=== PATIENT | male | born 1955 | race Caucasian/White ===

== ENCOUNTER 2018-10-05 22:07 | Emergency (ER) | payer MEDICARE, OTHER ==
[~2018-10-05] VITALS: Ht 162.6 cm; Wt 85.3 kg
--- OUTSIDE RECORDS SUMMARY | 2018-10-05 22:15 | XMS REPORT | Continuity of Care Document ---
Author Organization Unknown Address Unknown Allergies There is no data. Medications There is no data. Problems There is no data. Procedures There is no data. Results Test Result Range CMP - 09/03/18 15:25 GLUCOSE 116 mg/dL 65-139 UREA NITROGEN (BUN) 18 mg/dL 7-25 CREATININE 0.86 mg/dL 0.70-1.25 eGFR NON-AFR. SYRIAN 91 mL/min/1.73m2 > OR=60 eGFR 105 mL/min/1.73m2 > OR=60 BUN/CREATININE RATIO NOT APPLICABLE (calc) 6-22 SODIUM 136 mmol/L 135-146 POTASSIUM 4.0 mmol/L 3.5-5.3 CHLORIDE 98 mmol/L 98-110 CARBON DIOXIDE 29 mmol/L 20-32 CALCIUM 8.8 mg/dL 8.6-10.3 PROTEIN, TOTAL 7.3 g/dL 6.1-8.1 ALBUMIN 3.4 g/dL 3.6-5.1 GLOBULIN 3.9 g/dL (calc) 1.9-3.7 ALBUMIN/GLOBULIN RATIO 0.9 (calc) 1.0-2.5 BILIRUBIN, TOTAL 0.5 mg/dL 0.2-1.2 ALKALINE PHOSPHATASE 137 U/L 40-115 AST 34 U/L 10-35 ALT 39 U/L 9-46 CBC w/MANUAL DIFF - 09/03/18 15:25 WHITE BLOOD CELL COUNT 14.2 Thousand/uL 3.8-10.8 RED BLOOD CELL COUNT 3.41 Million/uL 4.20-5.80 HEMOGLOBIN 10.7 g/dL 13.2-17.1 HEMATOCRIT 32.5 % 38.5-50.0 MCV 95.3 fL 80.0-100.0 MCH 31.4 pg 27.0-33.0 MCHC 32.9 g/dL 32.0-36.0 RDW 14.3 % 11.0-15.0 PLATELET COUNT 271 Thousand/uL 140-400 MPV 10.9 fL 7.5-12.5 ABSOLUTE NEUTROPHILS 20741 cells/uL 7462-0398 ABSOLUTE MONOCYTES 724 cells/uL 200-950 ABSOLUTE EOSINOPHILS 0 cells/uL 15-500 ABSOLUTE BASOPHILS 0 cells/uL 0-200 NEUTROPHILS 82.8 % NRG LYMPHOCYTES 12.1 % NRG MONOCYTES 5.1 % NRG EOSINOPHILS 0 % NRG BASOPHILS 0 % NRG ABSOLUTE LYMPHOCYTES 1718 cells/uL 850-3900 PLATELET ESTIMATION ADEQUATE ADEQUATE COMMENT(S) NRG STOOL (WBC) - 09/05/18 16:13 FECAL LEUKOCYTE STAIN SEE NOTE NRG GIARDIA, STOOL - 09/05/18 16:13 GIARDIA AG, EIA, STOOL SEE NOTE NRG STOOL (C-DIFF) - 09/05/18 16:13 CLOSTRIDIUM DIFFICILE TOXIN/GDH W/REFL TO PCR SEE NOTE NRG Encounters ACCT No. Visit Date/Time Discharge Status Pt. Type Provider Facility Loc./Unit Complaint [id number] 09/05/2018 15:00:00 09/05/2018 23:59:59 [facility] Outpatient [facility] [id number] 09/05/2018 15:00:00 Document Registration [id number] 09/03/2018 14:15:00 Document Registration
--- OUTSIDE RECORDS SUMMARY | 2018-10-05 22:15 | XMS REPORT ---
Author Author JATINDER FRANKLIN [facility] Address [address] [place] [address] Care Team Providers Care Market Development Specialist Name Role Phone SELFJATINDER Unavailable PROBLEMS Unknown Problems ALLERGIES No Information ENCOUNTERS Encounter Location Date [facility] [address] [address] Jul, [facility] [address] [address] Jun, [facility] [address] [address] Jun, [facility] [place] [address] [address] Jun, [facility] [place] [address] [address] Jun, [facility] [place] [address] [address] Jun, [facility] [address] [address] May, [facility] [address] [address] May, [facility] IV[place] [address] [address] May, IMMUNIZATIONS No Known Immunizations SOCIAL HISTORY Never Assessed REASON FOR VISIT Refill request PLAN OF CARE VITAL SIGNS MEDICATIONS Unknown Medications RESULTS No Results PROCEDURES No Known procedures INSTRUCTIONS MEDICATIONS ADMINISTERED No Known Medications
--- OUTSIDE RECORDS SUMMARY | 2018-10-05 22:15 | XMS REPORT ---
Author Author JATINDER FRANKLIN [facility] Address [address] [place] [address] Care Team Providers Care Scrap Hooker Name Role Phone JATINDER FRANKLIN Unavailable PROBLEMS Unknown Problems ALLERGIES No Information ENCOUNTERS Encounter Location Date Diagnosis [facility] [address] [address] Jul, [facility] [address] [address] Jun, [facility] [address] [address] Jun, [facility] [place] [address] [address] Jun, [facility] [address] [address] Jun, [facility] [address] [address] Jun, [facility] [address] [address] May, [facility] [address] [address] May, [facility] [address] [address] May, IMMUNIZATIONS No Known Immunizations SOCIAL HISTORY Never Assessed REASON FOR VISIT MS CONTIN AND OXYCODONE REFILLS PLAN OF CARE VITAL SIGNS MEDICATIONS Medication Instructions Dosage Frequency Start Date End Date Duration Status Oxycodone-Acetaminophen 10-325 MG Orally 3 times a day 1 tablet as needed 8h 07 Jun, 2018 28 days Active Morphine Sulfate ER 30 MG Orally 2 times a day 1 tablet 12h Jun, 28 days Active RESULTS No Results PROCEDURES No Known procedures INSTRUCTIONS MEDICATIONS ADMINISTERED No Known Medications
--- OUTSIDE RECORDS SUMMARY | 2018-10-05 22:15 | XMS REPORT ---
Author Author JATINDER FRANKLIN [facility] Address [address] [place] [id number] Care Team Providers Care Supply Service Worker Name Role Phone JATINDER FRANKLIN Unavailable PROBLEMS Unknown Problems ALLERGIES No Information ENCOUNTERS Encounter Location Date [facility] [address] [address] Jul, [facility] [address] [address] Jun, [facility] [address] [address] Jun, [facility] [place] [address] [address] Jun, [facility] [address] [address] Jun, [facility] [address] [address] Jun, [facility] [address] [address] May, [facility] [address] [address] May, [facility] [address] [address] May, IMMUNIZATIONS No Known Immunizations SOCIAL HISTORY Never Assessed REASON FOR VISIT Sertraline refill PLAN OF CARE VITAL SIGNS MEDICATIONS Medication Instructions Dosage Frequency Start Date End Date Duration Status Sertraline HCl 100 MG Orally Once a day 1 tablet 24h Jun, 90 days Active RESULTS No Results PROCEDURES No Known procedures INSTRUCTIONS MEDICATIONS ADMINISTERED No Known Medications
--- OUTSIDE RECORDS SUMMARY | 2018-10-05 22:15 | XMS REPORT ---
Author Author JATINDER FRANKLIN [facility] Address [address] [place] [id number] Care Team Providers Care Heel Stiffener Name Role Phone JATINDER FRANKLIN Unavailable PROBLEMS Unknown Problems ALLERGIES No Information ENCOUNTERS Encounter Location Date Diagnosis [facility] [address] [address] August, [facility] [address] [address] August, [facility] [address] [address] Jul, [facility] [address] [address] Jul, [facility] [address] [address] Jul, [facility] [address] [address] Jun, [facility] [address] [address] Jun, [facility] [address] [address] Jun, [facility] [address] [address] Jun, [facility] [address] [address] Jun, [facility] [address] [address] May, [facility] [address] [address] May, [facility] [address] [address] May, IMMUNIZATIONS No Known Immunizations SOCIAL HISTORY Never Assessed REASON FOR VISIT med refill PLAN OF CARE VITAL SIGNS MEDICATIONS Unknown Medications RESULTS No Results PROCEDURES No Known procedures INSTRUCTIONS MEDICATIONS ADMINISTERED No Known Medications
[2018-10-05] MEDS ORDERED: DOXY100T2 PO (22:49)
[2018-10-05] MEDS ORDERED: BENZ-13 PO (22:49)
[2018-10-05] MEDS ORDERED: GUAI120013 PO (22:49)
[2018-10-05] MEDS ORDERED: TRIA10.8 NSEACH (22:49)
[2018-10-05 22:56] VITALS: BP 156/97
--- NOTE | 2018-10-05 22:59 | ED Cough/URI ---
General Chief Complaint: Cough/Cold/Flu Symptoms Stated Complaint: TROUBLE BREATHING Nursing Triage Note: pt states cough started today, non productive, was coughing up sputum last week Sepsis Screen: No Definite Risk Source: patient Exam Limitations: no limitations History of Present Illness Date Seen by Provider: Oct 05, 2018 Time Seen by Provider: 22:15 Initial Comments Patient is a 63-year-old male with history of CAD, hypertension who presents with nasal congestion, rhinorrhea, continuous postnasal drip, and difficulty sleeping secondary to coughing and gagging. Patient prior supplemental oxygen at night. Symptoms began this evening. Patient denies fever chills, nausea vomiting sweats. No chest pain chest tightness shortness of breath. No other acute symptoms or complaints. Patient is currently taking seasonal allergy medications. Timing/Duration: this afternoon Severity/Quality: productive cough Prior Episodes/Possible Cause: occasional episodes Modifying Factors: Improves With Lying Down, Improves With Rest Associated Symptoms: denies symptoms Allergies and Home Medications Home Medications Benzonatate 100 Mg Capsule, 100 MG PO TID Prescribed by: KARTIK UREÑA on 10/05/182248 Doxycycline Hyclate 100 Mg Tablet, 100 MG PO BID Prescribed by: KARTIK UREÑA on 10/05/182248 Guaifenesin 1,200 Mg Tab.er.12h, 1,200 MG PO Q12H Prescribed by: KARTIK UREÑA on 10/05/182248 Triamcinolone Acetonide 10.8 Ml [place], 10.8 ML NSEACH DAILY Prescribed by: KARTIK UREÑA on 10/05/182248 Patient Home Medication List Home Medication List Reviewed: Yes Review of Systems Review of Systems Constitutional: see HPI EENTM: see HPI Respiratory: see HPI Cardiovascular: see HPI Gastrointestinal: no symptoms reported Genitourinary: no symptoms reported Musculoskeletal: no symptoms reported Skin: no symptoms reported Psychiatric/Neurological: No Symptoms Reported Hematologic/Lymphatic: No Symptoms Reported Immunological/Allergic: no symptoms reported Past Hgbilhg-Ysrxpe-Velvyt Hx Patient Social History Alcohol Use: Denies Use Recreational Drug Use: No Smoking Status: Never a Smoker 2nd Hand Smoke Exposure: No Recent Foreign Travel: No Contact w/Someone Who Travel: No Recent Infectious Disease Expo: No Recent Hopitalizations: No Physical Abuse: No Sexual Abuse: No Mistreated: No Fear: No Seasonal Allergies Seasonal Allergies: No Past Medical History Surgeries: Yes Respiratory: No Cardiac: Yes Coronary Artery Disease, Hypertension Neurological: No Genitourinary: No Gastrointestinal: No Musculoskeletal: No Endocrine: No HEENT: No Cancer: No Psychosocial: No Integumentary: No Blood Disorders: No Adverse Reaction/Blood Tranf: No Physical Exam Vital Signs - First Documented 10/05/18 22:18 Temp 98.3 Pulse 70 Resp 18 B/P (MAP) 156/97 (116) Pulse Ox 97 O2 Delivery Room Air Capillary Refill : Less Than 3 Seconds Height: 5'4.00" Weight: 188lbs. oz. 85.136832bw; BMI Method:Stated General Appearance: WD/WN, no apparent distress Eyes: Bilateral Eye Normal Inspection, Bilateral Eye PERRL, Bilateral Eye EOMI HEENT: TMs normal, pharynx normal, other Neck: supple, normal inspection Respiratory: chest non-tender, lungs clear, normal breath sounds Cardiovascular: regular rate, rhythm, no edema Extremities: normal range of motion, non-tender Neurologic/Psychiatric: school speech therapist II-XII nml as tested, no motor/sensory deficits, alert, oriented x 3 Skin: normal color Progress/Results/Core Measures Suspected Sepsis Recent Fever Within 48 Hours: No Infection Criteria Present: None New/Unexplained Altered Menta: No Sepsis Screen: No Definite Risk SIRS Temperature:98.3 Pulse: 70 Respiratory Rate: 18 Blood Pressure 156 /97 Mean: 116 Results/Orders Vital Signs/I&O 10/05/18 22:18 Temp 98.3 Pulse 70 Resp 18 B/P (MAP) 156/97 (116) Pulse Ox 97 O2 Delivery Room Air Capillary Refill : Less Than 3 Seconds Blood Pressure Mean: 116 Departure Communication (Admissions) Recommend supportive care with close monitoring and PCP follow-up. Patient structured not to start a course of antibiotics once he develops fever or sputum becomes discolored. Return precautions reviewed Impression Primary Impression: Acute rhinosinusitis Disposition: 01 HOME, SELF-CARE Condition: Improved Departure-Patient Inst. Patient Instructions: Sinusitis in Adults, Acute Bronchitis, Adult (DC) Add. Discharge Instructions: Please fill medications and take as directed. Start antibiotics if sputum becomes discolored or if fever develops. Follow up with your PPCP in 5-7 days if no improvement. Return to the ED if your symptoms worsen. All discharge instructions reviewed with patient and/or family. Voiced understanding. Scripts Triamcinolone Acetonide (Nasacort) 10.8 Ml [place] 10.8 ML NSEACH DAILY, #1 SPRAY Prov: KARTIK UREÑA DO 10/05/18 Benzonatate (Tessalon Perle) 100 Mg Capsule 100 MG PO TID, #60 CAP Prov: KARTIK UREÑA DO 10/05/18 Guaifenesin (Mucinex) 1,200 Mg Tab.er.12h 1200 MG PO Q12H, #30 TAB Prov: KARTIK UREÑA DO 10/05/18 Doxycycline Hyclate (Doxycycline Hyclate) 100 Mg Tablet 100 MG PO BID, #20 TAB 0 Refills Prov: KARTIK UREÑA DO 10/05/18 KARTIK UREÑA DO Oct 05, 2018 22:58
== END 2018-10-05 22:57 | disposition home or self-care (01) ==
LOC: ER FS 22:12
DX: J01.90 Acute sinusitis, unspecified (principal); I25.10 Atherosclerotic heart disease of native coronary artery without angina pectoris; I10 Essential (primary) hypertension
CPT/HCPCS: 99281

== ENCOUNTER 2018-12-06 14:36 | Inpatient (IN) | payer MEDICARE ==
[~2018-12-06] VITALS: Ht 162.6 cm; Wt 87.1 kg
[~2018-12-06 14:36] MED LIST: BENZ-13 PO; DOXY100T2 PO; GUAI120013 PO; TRIA10.8 NSEACH
[2018-12-06] MEDS ORDERED: RT-ALBUTEROL/IPRATROPIUM 3 ML (DUONEB) VIAL INH ONE (15:00)
--- NOTE | 2018-12-06 15:01 | ED Respiratory ---
General Stated Complaint: FEVER; BP 86/48; LOW 02; COUGH Source: patient, spouse Exam Limitations: no limitations History of Present Illness Date Seen by Provider: Dec 06, 2018 Time Seen by Provider: 14:42 Initial Comments The patient presents to ER by private conveyance with his spouse and chief complaint he woke up early this morning with chills, nonproductive cough, subjective fever and feeling very short of breath. He uses 2 L oxygen at baseline to sleep. He measured his blood pressure 86/48 and says he feels like he did 3 years ago when he had to be admitted to the hospital for pneumonia. He has no chest pain but he has a history of coronary disease with CABG and stents over 10 years ago. He denies a history of COPD or asthma. He does not smoke but does use smokeless tobacco. He denies nausea diarrhea constipation, dysuria. He denies orthopnea, weight gain or swelling in his hands or feet. Allergies and Home Medications Allergies Coded Allergies: Penicillins (Verified Allergy, Unknown, 12/06/18) niacin (Verified Allergy, Unknown, 12/06/18) Home Medications Benzonatate 100 Mg Capsule, 100 MG PO TID Prescribed by: KARTIK UREÑA on 10/05/182248 Doxycycline Hyclate 100 Mg Tablet, 100 MG PO BID Prescribed by: KARTIK UREÑA on 10/05/182248 Guaifenesin 1,200 Mg Tab.er.12h, 1,200 MG PO Q12H Prescribed by: KARTIK UREÑA on 10/05/182248 Triamcinolone Acetonide 10.8 Ml [place], 10.8 ML NSEACH DAILY Prescribed by: KARTIK UREÑA on 10/05/182248 Patient Home Medication List Home Medication List Reviewed: Yes Review of Systems Review of Systems Constitutional: chills; No diaphoresis; fever, malaise EENTM: No ear discharge, No ear pain Respiratory: cough; No orthopnea, No phlegm; short of breath; No wheezing Cardiovascular: No chest pain; Hx of Intervention; No palpitations; vascular heart diseas Gastrointestinal: abdominal pain, constipation, diarrhea, nausea Genitourinary: discharge, dysuria Musculoskeletal: back pain, joint pain Skin: pruritus, rash Psychiatric/Neurological: Headache, Numbness Past Oyudusb-Btytcf-Wthxwf Hx Patient Social History Alcohol Use: Denies Use Recreational Drug Use: No Smoking Status: Never a Smoker Type Used: Smokeless Tobacco 2nd Hand Smoke Exposure: No Recent Hopitalizations: No Seasonal Allergies Seasonal Allergies: No Past Medical History Surgeries: Yes Respiratory: No Cardiac: Yes Coronary Artery Disease, Hypertension Neurological: No Genitourinary: No Gastrointestinal: No Musculoskeletal: No Endocrine: No HEENT: No Cancer: No Psychosocial: No Integumentary: No Blood Disorders: No Adverse Reaction/Blood Tranf: No Physical Exam Vital Signs - First Documented 12/06/18 14:42 Temp 99.8 Pulse 77 Resp 18 B/P (MAP) 108/57 (74) Pulse Ox 92 O2 Flow Rate 2.00 Capillary Refill : Height: 5'4.00" Weight: 188lbs. oz. 85.459096vi; BMI Method:Stated General Appearance: WD/WN, mild distress Eyes: Bilateral Eye Normal Inspection, Bilateral Eye PERRL, Bilateral Eye EOMI HEENT: PERRL/EOMI, normal ENT inspection, pharynx normal Neck: full range of motion, supple, normal inspection Respiratory: chest non-tender, lungs clear, no accessory muscle use, respiratory distress (mild SPO2 89% on room air), decreased breath sounds Cardiovascular: normal peripheral pulses, regular rate, rhythm, no edema Gastrointestinal: normal bowel sounds, non tender, soft Extremities: normal range of motion, non-tender, normal inspection, no pedal edema, normal capillary refill Neurologic/Psychiatric: no motor/sensory deficits, alert, normal mood/affect, oriented x 3 Skin: normal color, warm/dry Focused Exam Sepsis Stage: Sepsis Possible Source: Pulmonary Lactate Level 12/06/18 15:00: Lactic Acid Level 2.89*H Time of Focused Exam: 17:03 Respiratory: Chest Non Tender, Lungs Clear, Normal Breath Sounds, No Accessory Muscle Use, Respiratory Distress (mild, O2 sats in the mid to upper 90s on 2 L by nasal cannula) Cardiovascular: Regular Rate, Rhythm, Normal Peripheral Pulses Capillary Refill: Less Than 3 Seconds Peripheral Pulses: 2+ Radial Pulses (R), 2+ Radial Pulses (L) Skin: normal color, warm/dry Lactic Acid Level Laboratory Tests Test 12/06/18 15:00 Lactic Acid Level 2.89 MMOL/L (0.50-2.00) *H Within 3hrs of presentation: Admin fluids, Admin 30ml/kg IBW due to BMI>30, Admin ABX, Blood cultures prior to ABX's, Focus exam, Lactate level (2.89) Progress/Results/Core Measures Suspected Sepsis SIRS Temperature: Pulse: Respiratory Rate: Laboratory Tests 12/06/18 15:00: White Blood Count 23.0H Blood Pressure / Mean: 12/06/18 15:00: Lactic Acid Level 2.89*H Laboratory Tests 12/06/18 15:00: Creatinine 1.39H, INR Comment 1.1, Platelet Count 194, Total Bilirubin 0.3 Results/Orders Lab Results Laboratory Tests Test 12/06/18 15:00 12/06/18 15:05 Range/Units White Blood Count 23.0 H 4.3-11.0 10^3/uL Red Blood Count 3.47 L 4.35-5.85 10^6/uL Hemoglobin 11.1 L 13.3-17.7 G/DL Hematocrit 35 L 40-54 % Mean Corpuscular Volume 100 H 80-99 FL Mean Corpuscular Hemoglobin 32 25-34 PG Mean Corpuscular Hemoglobin Concent 32 32-36 G/DL Red Cell Distribution Width 15.6 H 10.0-14.5 % Platelet Count 194 130-400 10^3/uL Mean Platelet Volume 10.7 H 7.4-10.4 FL Neutrophils (%) (Auto) 90 H 42-75 % Lymphocytes (%) (Auto) 4 L 12-44 % Monocytes (%) (Auto) 5 0-12 % Eosinophils (%) (Auto) 0 0-10 % Basophils (%) (Auto) 0 0-10 % Neutrophils # (Auto) 20.6 H 1.8-7.8 X 10^3 Lymphocytes # (Auto) 1.0 1.0-4.0 X 10^3 Monocytes # (Auto) 1.2 H 0.0-1.0 X 10^3 Eosinophils # (Auto) 0.0 0.0-0.3 10^3/uL Basophils # (Auto) 0.0 0.0-0.1 10^3/uL Neutrophils % (Manual) 81 % Lymphocytes % (Manual) 4 % Monocytes % (Manual) 6 % Eosinophils % (Manual) 0 % Basophils % (Manual) 0 % Metamyelocytes % 1 % Band Neutrophils 8 % Prothrombin Time 14.5 12.2-14.7 SEC INR Comment 1.1 0.8-1.4 Activated Partial Thromboplast Time 32 24-35 SEC Sodium Level 140 135-145 MMOL/L Potassium Level 4.8 3.6-5.0 MMOL/L Chloride Level 101 98-107 MMOL/L Carbon Dioxide Level 23 21-32 MMOL/L Anion Gap 16 H 5-14 MMOL/L Blood Urea Nitrogen 27 H 7-18 MG/DL Creatinine 1.39 H 0.60-1.30 MG/DL Estimat Glomerular Filtration Rate 51 BUN/Creatinine Ratio 19 Glucose Level 142 H 70-105 MG/DL Lactic Acid Level 2.89 *H 0.50-2.00 MMOL/L Calcium Level 9.0 8.5-10.1 MG/DL Corrected Calcium 9.1 8.5-10.1 MG/DL Total Bilirubin 0.3 0.1-1.0 MG/DL Aspartate Amino Transf (AST/SGOT) 19 5-34 U/L Alanine Aminotransferase (ALT/SGPT) 15 0-55 U/L Alkaline Phosphatase 59 40-136 U/L Troponin I < 0.30 <0.30 NG/ML Pro-B-Type Natriuretic Peptide 906.9 H <75.0 PG/ML Total Protein 7.5 6.4-8.2 GM/DL Albumin 3.9 3.2-4.5 GM/DL Blood Gas Puncture Site LT RADIAL Blood Gas Patient Temperature 99.8 Arterial Blood pH 7.42 7.37-7.43 Arterial Blood Partial Pressure CO2 44 35-45 MMHG Arterial Blood Partial Pressure O2 57 L 79-93 MMHG Arterial Blood HCO3 29 H 23-27 MMOL/L Arterial Blood Total CO2 29.9 21.0-31.0 MMOL/L Arterial Blood Oxygen Saturation 90 L 94-100 % Arterial Blood Base Excess 3.5 H -2.5-2.5 MMOL/L Miguel Test OK Blood Gas Ventilator Setting NO Blood Gas Inspired Oxygen 2 L My Orders Orders - KARLO TREVIÑO Cbc With Automated Diff (12/06/18 14:51) Probnp Fs (12/06/18 14:51) Comprehensive Metabolic Panel (12/06/18 14:51) Lactic Acid Analyzer (12/06/18 14:51) Blood Culture (12/06/18 14:51) Arterial Blood Gas (12/06/18 14:51) Troponin I (12/06/18 14:51) Ekg Tracing (12/06/18 14:51) Continuous Ekg Monitoring (12/06/18 14:51) Ed Iv/Invasive Line Start (12/06/18 14:51) O2 (12/06/18 14:51) Protime With Inr (12/06/18 14:51) Partial Thromboplastin Time (12/06/18 14:51) Albuterol/Ipra Inhalation Soln (Duoneb I (12/06/18 15:00) Svn Small Volume Nebulizer (12/06/18 14:51) Chest Pa/Lat (2 View) (12/06/18 15:01) Ceftriaxone For Iv Use (Rocephin For I (12/06/18 15:15) Azithromycin Tablet (Zithromax Tablet) (12/06/18 15:15) Manual Differential (12/06/18 15:00) Medications Given in ED Current Medications Medications Dose Ordered Sig/Krystle Route Start Time Stop Time Status Last Admin Dose Admin Albuterol/ Ipratropium 3 ml ONCE ONCE INH 12/06/18 15:00 12/06/18 15:01 DC 12/06/18 15:01 3 ML Azithromycin 500 mg ONCE ONCE PO 12/06/18 15:15 12/06/18 15:16 DC 12/06/18 15:49 500 MG Ceftriaxone Sodium 1000 mg/ Sterile Water 10 ml @ 200 mls/hr ONCE ONCE IV 12/06/18 15:15 12/06/18 15:17 DC 12/06/18 15:49 200 MLS/HR Vital Signs/I&O 12/06/18 14:42 Temp 99.8 Pulse 77 Resp 18 B/P (MAP) 108/57 (74) Pulse Ox 92 O2 Flow Rate 2.00 Capillary Refill : Progress Note #1: Time: 15:00 Progress Note Hypoxia and mild respiratory distress. We will obtain chest x-ray labs blood cultures and lactate and plan to give him some fluids if his BNP is okay. Rocephin and azithromycin. EKG and troponin for possibility of a atypical chest presentation Progress Note #2: Time: 17:05 Progress Note The patient had some soft blood pressures after he arrived with map in the 65 range however after he received about half of his initial fluid bolus his blood pressure has consistently been elevated in the map of 75 range. Current blood pressure 110/64 and is no longer tachycardic with a heart rate of 75. His work of breathing is decreased to baseline on 2 L of oxygen. He is resting comfortably and ready for transport to [facility]. Plan to redraw his lactate before he leaves. ECG Initial ECG Impression Date: Dec 06, 2018 Initial ECG Impression Time: 14:49 Initial ECG Rate: 77 Initial ECG Rhythm: Normal Sinus Initial ECG Intervals: VT (236) Initial ECG Impression: Normal, Nonspecific Changes Initial ECG Comparisson: Unchanged Comment Left bundle-branch block without clinically significant ST elevation or depression. Negative for Sgarbossa's Criteria. Some respiratory artifact. Diagnostic Imaging Diagonstic Imaging: Xray Plain Films/CT/US/NM/MRI: chest (2v) Comments Right lower lobe and middle lobe infiltrates. NAME: FRANCO CURRAN [facility] REC#: [id number] PT STATUS: REG ER : 1955 PHYSICIAN: KARLO TREVIÑO MD ADMIT DATE: 12/06/18/ER FS Draft Date of Exam:12/06/18 CHEST PA/LAT (2 VIEW) INDICATION: Shortness of breath and hypotension. EXAMINATION: PA and lateral chest. FINDINGS: There are postop changes from a median sternotomy. There is some infiltrate present in the central regions of the right lung. Left lung is clear. There is no effusion or pneumothorax. IMPRESSION: Right perihilar infiltrate suspicious for pneumonia. Dictated on workstation # [id number] Dict: 12/06/18 1528 Trans: 12/06/18 1546 [facility] [id number] Interpreted by: RAMONA CANCINO MD Electronically signed by: Reviewed: Reviewed by Me Departure Communication (Admissions) Time/Spoke to Admitting Phy: 15:35 Discussed case lab imaging with Dr. Botello and she agrees to admit the patient to the floor on Rocephin and azithromycin. Impression Primary Impression: Pneumonia Qualified Codes: J18.1 - Lobar pneumonia, unspecified organism Additional Impressions: Acute respiratory distress Sepsis Qualified Codes: A41.9 - Sepsis, unspecified organism Hypoxemia Disposition: ADMITTED INPATIENT Condition: Stable Admissions Decision to Admit Reason: Admit from ER (General) Decision to Admit/Date: Dec 06, 2018 Time/Decision to Admit Time: 15:30 Departure-Patient Inst. Referrals: SELF,JATINDER RODRIGUEZ (PCP/Family) Primary Care Physician KARLO TREVIÑO Dec 06, 2018 15:00
[2018-12-06 15:14] LABS: ABG BASE EXCESS 3.5 MMOL/L (-2.5-2.5); ABG OXYGEN SATURATION 90 % (94-100); ABG PCO2 44 MMHG (35-45); ABG PH 7.42 (7.37-7.43); ABG PO2 57 MMHG (79-93); ABG TCO2 29.9 MMOL/L (21.0-31.0)
[2018-12-06 15:15] LABS: ALLENS TEST OK; PATIENT TEMP 99.8; VENTILATOR NO
[2018-12-06] MEDS ORDERED: cefTRIAXone FOR IV USE 1,000 MG in WATER (STERILE) FOR INJECTION 10 ML IV ONE (15:15)
[2018-12-06] MEDS ORDERED: AZITHROMYCIN 250 MG TAB (ZITHROMAX) PO ONE (15:15)
[2018-12-06 15:16] LABS: INSPIRED O2 2 L
[2018-12-06 15:22] LABS: HEMATOCRIT 35 % (40-54); HEMOGLOBIN 11.1 G/DL (13.3-17.7); LYMPHOCYTES % (AUTO) 4 % (12-44); MEAN CORPUSCULAR HEMOGLOBIN 32 PG (25-34); MEAN CORPUSCULAR HGB CONC 32 G/DL (32-36); MEAN CORPUSCULAR VOLUME 100 FL (80-99); MEAN PLATELET VOLUME 10.7 FL (7.4-10.4); MONOCYTES % (AUTO) 5 % (0-12); NEUTROPHILS % (AUTO) 90 % (42-75); PLATELET COUNT 194 10^3/uL (130-400); RED CELL DISTRIBUTION WIDTH 15.6 % (10.0-14.5)
[2018-12-06 15:23] LABS: BASOPHILS % (AUTO) 0 % (0-10); EOSINOPHILS % (AUTO) 0 % (0-10); MONOCYTES # (AUTO) 1.2 X 10^3 (0.0-1.0); NEUTROPHILS # (AUTO) 20.6 X 10^3 (1.8-7.8)
[2018-12-06 15:40] LABS: INR 1.1 (0.8-1.4); PROTHROMBIN TIME PATIENT 14.5 SEC (12.2-14.7)
[2018-12-06 15:43] LABS: ALANINE AMINOTRANSFERASE 15 U/L (0-55); ALBUMIN 3.9 GM/DL (3.2-4.5); ALKALINE PHOSPHATASE 59 U/L (40-136); BILIRUBIN,TOTAL 0.3 MG/DL (0.1-1.0); BUN/CREATININE RATIO 19; CARBON DIOXIDE 23 MMOL/L (21-32); CHLORIDE 101 MMOL/L (98-107); CREATININE SERUM 1.39 MG/DL (0.60-1.30); GFR ESTIMATED 51; GLUCOSE 142 MG/DL (70-105); POTASSIUM 4.8 MMOL/L (3.6-5.0); SODIUM 140 MMOL/L (135-145); TOTAL PROTEIN 7.5 GM/DL (6.4-8.2)
[2018-12-06] MEDS ORDERED: NS IV 500 ML 500 ML IV ONE (15:46)
[2018-12-06] MEDS ORDERED: NS IV 1000 ML 1,000 ML IV SCH ×2 (15:46→15:56)
--- NOTE | 2018-12-06 15:46 | Diagnostic Imaging Report ---
INDICATION: Shortness of breath and hypotension. EXAMINATION: PA and lateral chest. FINDINGS: There are postop changes from a median sternotomy. There is some infiltrate present in the central regions of the right lung. Left lung is clear. There is no effusion or pneumothorax. IMPRESSION: Right perihilar infiltrate suspicious for pneumonia. Dictated by: Dictated on workstation # [id number]
[2018-12-06 15:48] LABS: BAND NEUTROPHILS 8 %; BASOPHILS % (MANUAL) 0 %; EOSINOPHILS % (MANUAL) 0 %; LYMPHOCYTES % (MANUAL) 4 %; METAMYELOCYTES % 1 %; MONOCYTES % (MANUAL) 6 %; NEUTROPHILS % (MANUAL) 81 %
[2018-12-06] MEDS ORDERED: NS (IVPB) 250 ML IV ONE (15:56)
[2018-12-06 18:15] VITALS: BP 104/63
[2018-12-06] MEDS ORDERED: 1/2 NS W/KCL 20 MEQ/L 1,000 ML IV ONE (18:19)
[2018-12-06] MEDS: 1/2 NS W/KCL 20 MEQ/L 1,000 ML IV SCH (18:25)
--- NOTE | 2018-12-06 18:30 | NUR ---
FRANCO CURRAN admitted to room 427-1, with an admitting diagnosis of PNA, ACUTE RESPIRATORY DISTRESS W/ HYPOXEMIA, SEPSIS, on 12/06/18 from [facility] via EMS, accompanied by EMS STAFF. FRANCO CURRAN introduced to surroundings, call light, bed controls, phone, TV, temperature control, lights, meal times, smoking policy, visitor policy, side rail policy, bathrooms and showers. Patient Rights given to patient in the handbook. FRANCO CURRAN verbalizes understanding that [facility] is not responsible for the loss or damage to any personal effects or valuables that are kept in the patients possession during their hospitalization.
[2018-12-06] MEDS ORDERED: ACETAMINOPHEN 500 MG TAB (TYLENOL) PO PRN (18:45)
[2018-12-06] MEDS ORDERED: ONDANSETRON 4 MG/2 ML (SDV) Z0FRAN IV PRN (18:45)
[2018-12-06 19:57] VITALS: BP 104/63
[2018-12-06 20:02] VITALS: BP 108/65
[2018-12-06] MEDS ORDERED: RT-ALBUTEROL SULF 2.5 MG/3 ML PRE-MIX VIAL INH PRN (20:15)
[2018-12-06] MEDS: RT-ALBUTEROL/IPRATROPIUM 3 ML (DUONEB) VIAL INH SCH (20:16)
[2018-12-06] MEDS: TEMAZEPAM 15 MG (RESTORIL) CAP PO SCH (20:28)
[2018-12-06] MEDS: morphine ER 30 MG (MS CONTIN) TAB PO SCH (20:29)
[2018-12-06] MEDS: MONTELUKAST 10 MG (SINGULAIR) TAB PO SCH (20:29)
[2018-12-06] MEDS: ROSUVASTATIN 20 MG (CRESTOR) TABLET PO SCH (21:00)
[2018-12-07] VITALS: BP 109/71
[2018-12-07] MEDS: 1/2 NS W/KCL 20 MEQ/L 1,000 ML IV SCH ×4 (01:15→22:02)
[2018-12-07] MEDS: RT-ALBUTEROL/IPRATROPIUM 3 ML (DUONEB) VIAL INH SCH ×4 (03:10→19:40)
[2018-12-07 04:00] VITALS: BP 101/59
[2018-12-07 06:45] LABS: BASOPHILS % (AUTO) 0 % (0-10); EOSINOPHILS # (AUTO) 0.1 10^3/uL (0.0-0.3); EOSINOPHILS % (AUTO) 1 % (0-10); HEMATOCRIT 31 % (40-54); HEMOGLOBIN 9.7 G/DL (13.3-17.7); LYMPHOCYTES # (AUTO) 2.1 X 10^3 (1.0-4.0); LYMPHOCYTES % (AUTO) 14 % (12-44); MEAN CORPUSCULAR HEMOGLOBIN 32 PG (25-34); MEAN CORPUSCULAR HGB CONC 31 G/DL (32-36); MEAN CORPUSCULAR VOLUME 101 FL (80-99); MEAN PLATELET VOLUME 10.3 FL (7.4-10.4); MONOCYTES % (AUTO) 7 % (0-12); NEUTROPHILS # (AUTO) 11.8 X 10^3 (1.8-7.8); NEUTROPHILS % (AUTO) 79 % (42-75); PLATELET COUNT 166 10^3/uL (130-400); WHITE BLOOD COUNT 14.9 10^3/uL (4.3-11.0)
[2018-12-07 07:06] LABS: ALANINE AMINOTRANSFERASE 16 U/L (0-55); ALBUMIN 3.4 GM/DL (3.2-4.5); ALKALINE PHOSPHATASE 47 U/L (40-136); BILIRUBIN,TOTAL 0.4 MG/DL (0.1-1.0); BUN/CREATININE RATIO 22; CALCIUM 8.3 MG/DL (8.5-10.1); CARBON DIOXIDE 18 MMOL/L (21-32); CHLORIDE 108 MMOL/L (98-107); CREATININE SERUM 1.02 MG/DL (0.60-1.30); GFR ESTIMATED > 60; GLUCOSE 88 MG/DL (70-105); POTASSIUM 4.4 MMOL/L (3.6-5.0); SODIUM 141 MMOL/L (135-145); TOTAL PROTEIN 6.6 GM/DL (6.4-8.2)
[2018-12-07 08:00] VITALS: BP 111/68
[2018-12-07] MEDS: PANTOPRAZOLE 20 MG TABLET (PROTONIX) PO SCH (08:17)
[2018-12-07] MEDS: cefTRIAXone 1,000 MG/SWFI 10 ML IV PUSH IV SCH ×2 (08:17)
[2018-12-07] MEDS: ASPIRIN 325 MG (5 GR) TABLET PO SCH (08:17)
[2018-12-07] MEDS: AZITHROMYCIN 250 MG TAB (ZITHROMAX) PO SCH (08:17)
[2018-12-07] MEDS: SERTRALINE 100 MG (ZOLOFT) TAB PO SCH (08:18)
[2018-12-07] MEDS: CLOPIDOGREL 75 MG (PLAVIX) TABLET PO SCH (08:18)
[2018-12-07] MEDS: morphine ER 30 MG (MS CONTIN) TAB PO SCH ×2 (08:18→20:17)
--- NOTE | 2018-12-07 08:39 | NUR ---
PRIOR TO A.M. MEDICATIONS PULSE WAS 78, B/P WAS 111/68 AND TEMP WAS 99.2.
--- NOTE | 2018-12-07 10:21 | Diagnostic Imaging Report ---
INDICATION: History of pneumonia. Acute respiratory distress. Followup. EXAMINATION: 2 view chest 12/07/2018 COMPARISON: 12/06/2018 FINDINGS: Heart is stable. Pulmonary vasculature is minimally congested. There is mild atelectasis versus developing infiltrate at the right lung base. There is atelectatic change at the left lung base, as well. No effusions. No pneumothorax. Sternotomy wires and postoperative change along the cervical spine also noted. IMPRESSION: 1. Diffuse bibasilar atelectasis or infiltrate, similar to previous imaging. 2. Mild pulmonary vascular congestion. Dictated by: Dictated on workstation # [id number]
--- NOTE | 2018-12-07 10:48 | History & Physical-Hospitalist ---
History of Present Illness HPI/Chief Complaint The patient is a 63-year-old white male who reports purulent sputum production for the past several weeks. He denied increased shortness of breath until yesterday reporting some increased dyspnea on exertion and increased cough. He was awoken from sleep with Reiger's feeling feverish Sunday morning. He states he felt like he did when he had pneumonia 3 years ago that required hospitalization. In the emergency room he met sepsis criteria why Was over 20,000 with mildly elevated lactate level in the mid 2 range and chest x-ray revealed right perihilar infiltrate. He was subsequently admitted for treatment of community-acquired pneumonia Date Seen 12/07/18 Time Seen by a Provider: 10:46 Attending Physician Rosa Botello MD PCP SelfJuan MD Referring Physician Date of Admission Dec 06, 2018 at 15:45 Home Medications & Allergies Home Medications Reviewed patient Home Medication Reconciliation performed by pharmacy medication reconciliations broadcast technician and/or nursing. Patients Allergies have been reviewed. Allergies Allergies Coded Allergies Penicillins (Verified Allergy, Unknown, 12/06/18) niacin (Verified Allergy, Unknown, 12/06/18) Past Tnrnjtv-Exeptm-Lqmgan Hx Past Med/Social Hx: Reviewed and Corrections made Patient Social History Alcohol Use: Denies Use Recreational Drug Use: No Smoking Status: Never a Smoker Type Used: Smokeless Tobacco 2nd Hand Smoke Exposure: No Recent Foreign Travel: No Contact w/other who traveled: No Recent Hopitalizations: No Recent Infectious Disease Expo: No Seasonal Allergies Seasonal Allergies: No Past Medical History Surgeries: CABG, Coronary Stent Cardiac: Coronary Artery Disease, Heart Attack, High Cholesterol, Hypertension Gastrointestinal: Gastroesophageal Reflux, Hiatal Hernia Musculoskeletal: Arthritis History of Blood Disorders: No Adverse Reaction to Blood Vidal: No Review of Systems Constitutional: see HPI Physical Exam Physical Exam Vital Signs Vital Signs - First Documented 12/06/18 12/06/18 14:42 19:57 Temp 99.8 Pulse 77 Resp 18 B/P (MAP) 108/57 (74) Pulse Ox 92 O2 Delivery Nasal Cannula O2 Flow Rate 2.00 FiO2 28 Capillary Refill : Less Than 3 SecondsLess Than 3 Seconds Height, Weight, BMI Height: 5'4.00" Weight: 192lbs. 9.0oz. 87.848121ub; 33.1 BMI Method:Stated General Appearance: No Apparent Distress Neck: Normal Inspection Respiratory: Chest Non Tender, No Accessory Muscle Use, No Respiratory Distress, Other (By basilar and right anterior rhonchi and no wheezing appreciated few coarse basilar rales noted as well.) Cardiovascular: Regular Rate, Rhythm, No Edema, No Gallop, No JVD, Other (Soft 1 to 2/6 systolic ejection murmur heard best at the left lower sternal border) Gastrointestinal: Normal Bowel Sounds, No Organomegaly, No Pulsatile Mass, Non Tender, Soft Extremity: Normal Inspection, Normal Range of Motion, Non Tender, No Calf Tenderness, No Pedal Edema Neurologic/Psychiatric: Alert, Oriented x3 Results Results/Procedures Labs Laboratory Tests 12/06/18 15:00 12/07/18 06:21 Patient resulted labs reviewed. Assessment/Plan Admission Diagnosis A/P community-acquired right perihilar pneumonia with secondary sepsis. Patient is responding to antibiotics lactate levels returned to normal and white count was down from well over 20,000 14,000 with decreasing heart rates and reasonable oxygenation continue Rocephin and azithromycin. 2. History of coronary artery disease no evidence for acute coronary syndrome. 3. Hypertension continue current medication. 4. Hyperlipidemia continue statin. Admission Status: Inpatient Order (span 2 midnights) Reason for Inpatient Admission: See admission diagnosis Clinical Quality Measures DVT/VTE Risk/Contraindication: Risk Factor Score Per Nursin RFS Level Per Nursing on Admit: 4+=Very High ANGEL RUBIO MD Dec 07, 2018 10:48
[2018-12-07 12:00] VITALS: BP 117/69
[2018-12-07] MEDS: POLYETHYLENE GLYCOL 17 GM (MIRALAX) PACK PO SCH (13:57)
[2018-12-07 15:30] VITALS: BP 132/75
[2018-12-07 20:00] VITALS: BP 139/79
[2018-12-07] MEDS: ROSUVASTATIN 20 MG (CRESTOR) TABLET PO SCH (20:17)
[2018-12-07] MEDS: TEMAZEPAM 15 MG (RESTORIL) CAP PO SCH (20:17)
[2018-12-07] MEDS: MONTELUKAST 10 MG (SINGULAIR) TAB PO SCH (20:18)
[2018-12-08 01:05] VITALS: BP 137/78
[2018-12-08] MEDS: 1/2 NS W/KCL 20 MEQ/L 1,000 ML IV SCH ×2 (03:44→10:14)
[2018-12-08] MEDS: RT-ALBUTEROL/IPRATROPIUM 3 ML (DUONEB) VIAL INH SCH ×4 (07:44→20:23)
[2018-12-08] MEDS: morphine ER 30 MG (MS CONTIN) TAB PO SCH ×2 (07:50→20:34)
[2018-12-08] MEDS: AZITHROMYCIN 250 MG TAB (ZITHROMAX) PO SCH (07:50)
[2018-12-08] MEDS: oxyCODONE/APAP 10/325MG (PERCOCET 10) TABLET PO PRN ×2 (07:50→15:55)
[2018-12-08] MEDS: cefTRIAXone 1,000 MG/SWFI 10 ML IV PUSH IV SCH ×2 (07:51)
[2018-12-08] MEDS: CLOPIDOGREL 75 MG (PLAVIX) TABLET PO SCH (07:51)
[2018-12-08] MEDS: SERTRALINE 100 MG (ZOLOFT) TAB PO SCH (07:51)
[2018-12-08] MEDS: ASPIRIN 325 MG (5 GR) TABLET PO SCH (07:51)
[2018-12-08] MEDS: PANTOPRAZOLE 20 MG TABLET (PROTONIX) PO SCH (07:51)
[2018-12-08 08:00] VITALS: BP 136/75
[2018-12-08] MEDS: POLYETHYLENE GLYCOL 17 GM (MIRALAX) PACK PO SCH (10:03)
[2018-12-08] MEDS ORDERED: LIDOCAINE 2% VISCOUS 15 ML UDC PO PRN (14:15)
--- NOTE | 2018-12-08 14:31 | Progress Note - Hospitalist ---
Subjective HPI/CC On Admission Date Seen by Provider: Dec 08, 2018 Time Seen by Provider: 14:27 The patient is a 63-year-old white male who reports purulent sputum production for the past several weeks. He denied increased shortness of breath until yesterday reporting some increased dyspnea on exertion and increased cough. He was awoken from sleep with Reiger's feeling feverish Sunday morning. He states he felt like he did when he had pneumonia 3 years ago that required hospitalization. In the emergency room he met sepsis criteria why Was over 20,000 with mildly elevated lactate level in the mid 2 range and chest x-ray revealed right perihilar infiltrate. He was subsequently admitted for treatment of community-acquired pneumonia Subjective/Events-last exam Patient reports feeling better difficulty getting the back room and back and decreased purulent sputum production. Denies night sweats chills or fever with his usual appetite. Focused Exam Lactate Level 12/06/18 17:10: Lactic Acid Level 2.03*H 12/06/18 21:10: Lactic Acid Level 2.76*H 12/06/18 23:27: Lactic Acid Level 1.17 Time of Focused Exam: 17:03 Objective Exam Vital Signs Vital Signs Date Time Temp Pulse Resp B/P (MAP) Pulse Ox O2 Delivery O2 Flow Rate FiO2 12/08/18 10:42 91 Room Air 12/08/18 08:00 99.2 70 20 136/75 (95) 12/08/18 07:44 2.00 12/06/18 19:57 28 Capillary Refill : Less Than 3 SecondsLess Than 3 Seconds General Appearance: No Apparent Distress, WD/WN Respiratory: Chest Non Tender, No Accessory Muscle Use, No Respiratory Distress, Other (Few coarse basilar rales as well as right anterior rales no wheezing noted good air movement.) Cardiovascular: Regular Rate, Rhythm, No Edema, No Gallop, No JVD, No Murmur, Normal Peripheral Pulses Extremity: Non Tender, No Pedal Edema Results/Procedures Lab Patient resulted labs reviewed. Assessment/Plan Assessment and Plan Assess & Plan/Chief Complaint 1. Community-acquired pneumonia with sepsis at her resolved continue Rocephin and azithromycin today consider possible discharge tomorrow. 2. Slightly macrocytic anemia CBC and anemia analyzer in the morning. 3. Mild ALT and AST elevation repeat CMP in the morning. Clinical Quality Measures DVT/VTE Risk/Contraindication: Risk Factor Score Per Nursin RFS Level Per Nursing on Admit: 4+=Very High ANGEL RUBIO MD Dec 08, 2018 14:31
[2018-12-08 16:10] VITALS: BP 145/76
[2018-12-08] MEDS: MONTELUKAST 10 MG (SINGULAIR) TAB PO SCH (20:33)
[2018-12-08] MEDS: ROSUVASTATIN 20 MG (CRESTOR) TABLET PO SCH (20:33)
[2018-12-08] MEDS: TEMAZEPAM 15 MG (RESTORIL) CAP PO SCH (20:33)
[2018-12-09] VITALS: BP 170/82
[2018-12-09 05:51] LABS: ABSOLUTE RETIC # 44 10e9/L (24-90); BASOPHILS % (AUTO) 0 % (0-10); EOSINOPHILS # (AUTO) 0.2 10^3/uL (0.0-0.3); EOSINOPHILS % (AUTO) 3 % (0-10); HEMATOCRIT 34 % (40-54); HEMOGLOBIN 10.4 G/DL (13.3-17.7); LYMPHOCYTES # (AUTO) 1.9 X 10^3 (1.0-4.0); LYMPHOCYTES % (AUTO) 24 % (12-44); MEAN CORPUSCULAR HEMOGLOBIN 31 PG (25-34); MEAN CORPUSCULAR HGB CONC 31 G/DL (32-36); MEAN CORPUSCULAR VOLUME 101 FL (80-99); MONOCYTES # (AUTO) 0.7 X 10^3 (0.0-1.0); MONOCYTES % (AUTO) 8 % (0-12); NEUTROPHILS # (AUTO) 5.3 X 10^3 (1.8-7.8); NEUTROPHILS % (AUTO) 65 % (42-75); PLATELET COUNT 178 10^3/uL (130-400); RED CELL DISTRIBUTION WIDTH 15.6 % (10.0-14.5); WHITE BLOOD COUNT 8.1 10^3/uL (4.3-11.0)
[2018-12-09 06:09] LABS: BAND NEUTROPHILS 1 %; EOSINOPHILS % (MANUAL) 1 %; LYMPHOCYTES % (MANUAL) 29 %; MONOCYTES % (MANUAL) 4 %; NEUTROPHILS % (MANUAL) 65 %; RBC MORPH NORMAL
[2018-12-09] MEDS: RT-ALBUTEROL/IPRATROPIUM 3 ML (DUONEB) VIAL INH SCH (07:37)
[2018-12-09] MEDS ORDERED: RT-ALBUTEROL/IPRATROPIUM 3 ML (DUONEB) VIAL INH PRN (08:00)
[2018-12-09] MEDS ORDERED: MONT10TA24 PO (08:02)
[2018-12-09] MEDS ORDERED: CLOP75TA28 PO (08:02)
[2018-12-09] MEDS ORDERED: SERT100T8 PO (08:02)
[2018-12-09] MEDS ORDERED: ALLO300T2 PO (08:02)
[2018-12-09] MEDS ORDERED: ROSU20TA32 PO (08:02)
[2018-12-09] MEDS ORDERED: OMEP20CA13 PO (08:02)
[2018-12-09] MEDS ORDERED: TEMA30CA PO (08:02)
[2018-12-09] MEDS ORDERED: FLUT9.9S NS (08:02)
[2018-12-09] MEDS ORDERED: IBUP-2055 PO (08:05)
[2018-12-09] MEDS ORDERED: MULT-851 PO (08:05)
[2018-12-09] MEDS ORDERED: ASPI325T32 PO (08:05)
[2018-12-09] MEDS ORDERED: ACET-77 PO (08:05)
[2018-12-09] MEDS ORDERED: MORP-34 PO (08:09)
[2018-12-09] MEDS ORDERED: OXYC-465 PO (08:09)
--- NOTE | 2018-12-09 08:09 | NUR ---
SPOKE WITH PATIENT (AND ), WENT THRU THE EXT MED HISTORY AND ALSO CALLED PT'S PHARMACIES TO COMPLETE THE MED REC. 11-12-2018 MORPHINE #[id number] (IN THE EXTERNAL MED HIS THIS SHOWS LAST FILLED 10-15-2018 BUT WHEN I CALLED [facility] THEY VERIFIED A DATE OF 11-12-2018) 11-12-2018 OXYCODONE/APAP FILLED FOR A 28 D/S. THE SAME NOTE ABOVE APPLIES TO THIS RX. OTC MEDS: FLONASE: UD PRN ACETAMINOPHEN 500M TABS Q 8 H PRN IBUPROFEN 200M TABS Q 8 H PRN MENS 1 A DAY: 1 DAILY ASPIRIN 325M DAILY
[2018-12-09] MEDS: AZITHROMYCIN 250 MG TAB (ZITHROMAX) PO SCH (09:27)
[2018-12-09] MEDS: ASPIRIN 325 MG (5 GR) TABLET PO SCH (09:27)
[2018-12-09] MEDS: CLOPIDOGREL 75 MG (PLAVIX) TABLET PO SCH (09:27)
[2018-12-09] MEDS: PANTOPRAZOLE 20 MG TABLET (PROTONIX) PO SCH (09:27)
[2018-12-09] MEDS: SERTRALINE 100 MG (ZOLOFT) TAB PO SCH (09:27)
[2018-12-09] MEDS: POLYETHYLENE GLYCOL 17 GM (MIRALAX) PACK PO SCH (09:28)
[2018-12-09] MEDS: cefTRIAXone 1,000 MG/SWFI 10 ML IV PUSH IV SCH ×2 (09:29)
[2018-12-09] MEDS: morphine ER 30 MG (MS CONTIN) TAB PO SCH (09:32)
[2018-12-09] MEDS: oxyCODONE/APAP 10/325MG (PERCOCET 10) TABLET PO PRN (09:39)
--- NOTE | 2018-12-09 10:32 | NUR ---
This RT spoke with SILVIO Maldonado regarding home o2 needs. Informed her that pt states he wears home oxygen qhs and pt has not required oxygen during waking hours per documentation since 12/08/18 and that pt was taken off oxygen prior to breathing treatment this a.m.
[2018-12-09] MEDS ORDERED: CEFD300C3 PO (10:33)
--- NOTE | 2018-12-09 11:48 | Discharge Summary ---
[facility] 12/09/18 1148: Diagnosis/Chief Complaint Date of Admission Dec 06, 2018 at 15:45 Date of Discharge Nov Discharge Date: Dec 09, 2018 Admission Diagnosis A/P community-acquired right perihilar pneumonia with secondary sepsis. Patient is responding to antibiotics lactate levels returned to normal and white count was down from well over 20,000 14,000 with decreasing heart rates and reasonable oxygenation continue Rocephin and azithromycin. 2. History of coronary artery disease no evidence for acute coronary syndrome. 3. Hypertension continue current medication. 4. Hyperlipidemia continue statin. Primary Care Self,Juan RODRIGUEZ Discharge Diagnosis Pneumonia (1) Pneumonia Status: Resolved Discharge Summary Discharge Physical Exam Allergies: Coded Allergies: Penicillins (Verified Allergy, Unknown, 12/06/18) niacin (Verified Allergy, Unknown, 12/06/18) Vitals & I&Os Vital Signs Date Time Temp Pulse Resp B/P (MAP) Pulse Ox O2 Delivery O2 Flow Rate FiO2 12/09/18 08:00 93 Room Air 2.00 12/09/18 07:37 65 28 12/09/18 00:00 98.7 20 170/82 (111) General Appearance: No Apparent Distress, WD/WN Respiratory: Chest Non Tender, Crackles, Other (Minor Crackles ) Cardiovascular: Regular Rate, Rhythm, No Edema, No JVD, Normal Peripheral Pulses Extremity: Normal Capillary Refill Skin: Normal Color, Warm/Dry Neurologic/Psychiatric: Alert, Oriented x3 Hospital Course Labs (last 24 hrs) Laboratory Tests 12/09/18 05:10: White Blood Count 8.1, Red Blood Count 3.35L, Hemoglobin 10.4L, Hematocrit 34L, Mean Corpuscular Volume 101H, Mean Corpuscular Hemoglobin 31, Mean Corpuscular Hemoglobin Concent 31L, Red Cell Distribution Width 15.6H, Platelet Count 178, Mean Platelet Volume 11.0H, Neutrophils (%) (Auto) 65, Lymphocytes (%) (Auto) 24, Monocytes (%) (Auto) 8, Eosinophils (%) (Auto) 3, Basophils (%) (Auto) 0, Neutrophils # (Auto) 5.3, Lymphocytes # (Auto) 1.9, Monocytes # (Auto) 0.7, Eosinophils # (Auto) 0.2, Basophils # (Auto) 0.0, Neutrophils % (Manual) 65, Lymphocytes % (Manual) 29, Monocytes % (Manual) 4, Eosinophils % (Manual) 1, Band Neutrophils 1, Blood Morphology Comment NORMAL, Absolute Reticulocyte Count 44, Percent Reticulocyte Count 1.30 Microbiology 12/06/18 Blood Culture - Preliminary, Resulted No growth 12/07/18 Gram Stain - Final, Resulted 12/07/18 Sputum Culture - Preliminary, Resulted Usual upper respiratory sal Patient resulted labs reviewed. Pending Labs Laboratory Tests 12/09/18 05:10: White Blood Count 8.1, Red Blood Count 3.35, Hemoglobin 10.4, Hematocrit 34, Mean Corpuscular Volume 101, Mean Corpuscular Hemoglobin 31, Mean Corpuscular Hemoglobin Concent 31, Red Cell Distribution Width 15.6, Platelet Count 178, Mean Platelet Volume 11.0, Neutrophils (%) (Auto) 65, Lymphocytes (%) (Auto) 24, Monocytes (%) (Auto) 8, Eosinophils (%) (Auto) 3, Basophils (%) (Auto) 0, Neutrophils # (Auto) 5.3, Lymphocytes # (Auto) 1.9, Monocytes # (Auto) 0.7, Eosinophils # (Auto) 0.2, Basophils # (Auto) 0.0, Neutrophils % (Manual) 65, Lymphocytes % (Manual) 29, Monocytes % (Manual) 4, Eosinophils % (Manual) 1, Band Neutrophils 1, Blood Morphology Comment NORMAL, Absolute Reticulocyte Count 44, Percent Reticulocyte Count 1.30 Discharge Home Medications: Active Scripts Active Cefdinir 300 Mg Capsule 300 Mg PO BID Reported Oxycodone-Acetaminophen 10-325 (Oxycodone HCl/Acetaminophen) 1 Each Tablet 1 Tab PO TID PRN Morphine Sulfate ER (Morphine Sulfate) 30 Mg Tablet.er 30 Mg PO BID PRN One Daily For Men Tablet (Multivits-Minerals/FA/Lycopene) 1 Each Tablet 1 Each PO DAILY Aspirin EC (Aspirin) 325 Mg Tablet.dr 325 Mg PO DAILY Ibuprofen 200 Mg Tablet 400 Mg PO Q8H PRN Acetaminophen 500 Mg Tablet 1,000 Mg PO Q8H PRN Flonase Allergy Relief (Fluticasone Propionate) 9.9 Ml [place].susp 1 [place] NS DAILY PRN 1 SPRAY EACH NARE DAILY Allopurinol 300 Mg Tablet 300 Mg PO DAILY Montelukast Sodium 10 Mg Tablet 10 Mg PO HS Clopidogrel (Clopidogrel Bisulfate) 75 Mg Tablet 75 Mg PO DAILY Sertraline HCl 100 Mg Tablet 100 Mg PO HS Omeprazole 20 Mg Capsule.dr 20 Mg PO DAILY TAKES MED BEFORE HE EATS Rosuvastatin Calcium 20 Mg Tablet 20 Mg PO HS Temazepam 30 Mg Capsule 30 Mg PO HS Instructions to patient/family Please see electronic discharge instructions given to patient. Clinical Quality Measures DVT/VTE Risk/Contraindication: Risk Factor Score Per Nursin RFS Level Per Nursing on Admit: 4+=Very High VICKIE MAYO DO 12/09/18 1740: Discharge Summary Discharge Physical Exam Allergies: Coded Allergies: Penicillins (Verified Allergy, Unknown, 12/06/18) niacin (Verified Allergy, Unknown, 12/06/18) General Appearance: No Apparent Distress, WD/WN, Chronically ill Respiratory: Chest Non Tender, Lungs Clear, Normal Breath Sounds, No Accessory Muscle Use, No Respiratory Distress Cardiovascular: Regular Rate, Rhythm, No Edema, No Gallop, No JVD, No Murmur, Normal Peripheral Pulses Neurologic/Psychiatric: Alert, Oriented x3, No Motor/Sensory Deficits, Normal Mood/Affect Hospital Course Was the Problem List Reviewed?: Yes Hospital Course: Pt had a short hospital course for 4 days. He was admitted for pneumonia and acute respiratory distress, maintained on oxygen and nebulizer treatments, placed on empiric antibiotics and admission white count of 23,000 improved. BP remained elevated, right sided infiltrate much improved. Pulse ox w as evaluated and he did not need oxygen on ambulation or exertion he was maintained on oxygen at night and he did receive his DME supplies from [facility] in [facility] Discussion & Recommendations Discharge Planning: <30 minutes discharge planning Supervisory-Addendum Brief Verification & Attestation Participated in pt care: history, MDM, physical Personally performed: exam, history, MDM, supervision of care Care discussed with: Medical Student Procedures: n/a Results interpretation: Verified all documentation Verification and Attestation of Medical Student E/M Service A medical student performed and documented this service in my presence. I reviewed and verified all information documented by the medical student and made modifications to such information, when appropriate. I personally performed the physical exam and medical decision making. Vickie Mayo, Dec 09, 2018,21:11 Problem Qualifiers (1) Pneumonia: Pneumonia type: due to unspecified organism Laterality: right Lung location: lower lobe of lung Qualified Codes: J18.1 - Lobar pneumonia, unspecified organism [facility] Dec 09, 2018 11:48 VICKIE MAYO DO Dec 09, 2018 17:40
[2018-12-09] MEDS ORDERED: RT-ALBUTEROL/IPRATROPIUM 3 ML (DUONEB) VIAL INH SCH (21:00)
[2018-12-10] MEDS ORDERED: HEParin (CATH LAB) 0 ML IV ONE (06:39)
[2018-12-10] MEDS ORDERED: LIDOCAINE 1% INJ 20 ML 20 ML VIAL ONE (06:39)
== END 2018-12-09 12:20 | disposition home or self-care (01) | DRG 871 ==
LOC: EDUNIT# 14:36 → ER FS 14:38 → 4TH 15:45
PROVIDERS: ADMIT Family Medicine; ATTEND Family Medicine
DX: A41.9 Sepsis, unspecified organism (principal); J18.1 Lobar pneumonia, unspecified organism; R06.03 Acute respiratory distress; R09.02 Hypoxemia; I10 Essential (primary) hypertension; I25.10 Atherosclerotic heart disease of native coronary artery without angina pectoris; E78.00 Pure hypercholesterolemia, unspecified; K21.9 Gastro-esophageal reflux disease without esophagitis; K44.9 Diaphragmatic hernia without obstruction or gangrene; M19.91 Primary osteoarthritis, unspecified site; D53.9 Nutritional anemia, unspecified; R51 Headache; M54.9 Dorsalgia, unspecified; F17.220 Nicotine dependence, chewing tobacco, uncomplicated; Z95.1 Presence of aortocoronary bypass graft; Z95.5 Presence of coronary angioplasty implant and graft; Z99.81 Dependence on supplemental oxygen
CPT/HCPCS: 36415; 71046; 80053; 82607; 82746; 82805; 83540; 83550; 83605; 83880; 84484; 85007; 85025; 85027; 85045; 85610; 85730; 87040; 87070; 87205; 93005; 93306; 94640; 94664; 94760; 96361; 96374

== ENCOUNTER → 2019-01-20 | Outpatient (CLI) | payer MEDICARE ==
[~2019-01-20] MED LIST changes: +ACET-77 PO; +ALLO300T2 PO; +ASPI325T32 PO; +CEFD300C3 PO; +CLOP75TA28 PO; +FLUT9.9S NS; +IBUP-2055 PO; +MONT10TA24 PO; +MORP-34 PO; +MULT-851 PO; +OMEP20CA13 PO; +OXYC-465 PO; +ROSU20TA32 PO; +SERT100T8 PO; +TEMA30CA PO
--- NOTE | 2019-01-20 12:07 | Diagnostic Imaging Report ---
PROCEDURE: CT lumbar spine without contrast. TECHNIQUE: Multiple contiguous axial images were obtained through the lumbar spine without the use of intravenous contrast. Sagittal and coronal reformations were then performed. Auto Exposure Controls were utilized during the CT exam to meet ALARA standards for radiation dose reduction. INDICATION: Chronic lumbar radiculopathy. COMPARISON: None. FINDINGS: No acute fracture or dislocation is seen in the lumbar spine. There is left convexity curvature of the lumbar spine centered at the L2 level. Grade 1 anterolisthesis of L4 on L5 is seen. No focal osseous lesions are seen. A prominent Schmorl's node is seen in the inferior endplate of L1. Multilevel degenerative changes are present in the lumbar spine with marginal osteophytes, disc height loss and desiccation, broad-based disc bulges, and facet hypertrophy. There is elnltkrr-yj-kenmwt spinal canal stenosis at the L3-L4 and L4-L5 levels with at least moderate bilateral foraminal stenosis at these levels. The included soft tissues are unremarkable. There is calcified aortic and iliac atherosclerotic plaque. IMPRESSION: 1. No acute fracture or dislocation in the lumbar spine. 2. Dsvxofwa-ne-plmoui degenerative changes at the L3-L4 and L4-L5 levels. Dictated by: Dictated on workstation # [id number]
== END ==
LOC: RAD FS 11:14
PROVIDERS: ATTEND Orthopaedic Surgery
DX: M47.26 Other spondylosis with radiculopathy, lumbar region (principal)
CPT/HCPCS: 72131

== ENCOUNTER → 2019-04-07 | Outpatient (CLI) | payer MEDICARE ==
--- NOTE | 2019-04-07 15:11 | Diagnostic Imaging Report ---
INDICATION: Cough. COMPARISON: 12/07/2018. FINDINGS: Frontal and lateral radiographic views of the chest were obtained and show normal cardiac silhouette and pulmonary vasculature. Sternotomy wires are noted. Lungs continue to show low inspiratory volumes with asymmetric elevation of right hemidiaphragm. Overall, there has been improved aeration when compared to 12/07/2018. Some scattered patchy alveolar opacities persist however, most prominent within the right mid lung field. No large effusion or pneumothorax is seen. Osseous structures show no gross acute abnormalities. IMPRESSION: 1. Overall improved appearance, but with likely recurrent scattered patchy opacities, greatest within the right mid lung and concerning for infiltrate. Follow-up is advised. Dictated by: Dictated on workstation # [id number]
== END ==
LOC: RAD FS 14:50
PROVIDERS: ATTEND Family Medicine
DX: J20.8 Acute bronchitis due to other specified organisms (principal); B96.89 Other specified bacterial agents as the cause of diseases classified elsewhere; Z98.890 Other specified postprocedural states
CPT/HCPCS: 71046

== ENCOUNTER → 2019-09-15 | Outpatient (CLI) | payer MEDICARE ==
[~2019-09-15] MED LIST changes: -ACET-77 PO; +ACET-78 PO; -IBUP-2055 PO; +IBUP-2473 PO; -MONT10TA24 PO; +MONT10TA26 PO; -MORP-34 PO; +MORP-69 PO; -OMEP20CA13 PO; +OMEP20CA18 PO
== END ==
LOC: CARD 13:57
PROVIDERS: ATTEND Internal Medicine Interventional Cardiology
DX: Z01.810 Encounter for preprocedural cardiovascular examination (principal); I25.10 Atherosclerotic heart disease of native coronary artery without angina pectoris; I10 Essential (primary) hypertension; E78.01 Familial hypercholesterolemia; Z72.0 Tobacco use
CPT/HCPCS: 93306

== ENCOUNTER → 2019-09-18 | Outpatient (CLI) | payer MEDICARE ==
[~2019-09-18] VITALS: Ht 162 cm; Wt 91.0 kg
[~2019-09-18] MED LIST changes: +AMLO10TA7 PO; +CARV12.52 PO; +CARV12.53 PO; +CATHETER FLUSH 10 ML SYR IV PRN; -FLUT9.9S NS; +FLUT9.9S NSEACH; +MORP-68 PO; +NEBI5TAB8 PO; +REGADENOSON 0.4 MG/5 ML SYR (LEXISCAN) IV ONE
[2019-09-22 15:05] VITALS: BP 105/80
--- NOTE | 2019-09-22 15:05 | Cardiology Stress Test Report ---
Stress Test Report Type of NM Stress Test: Test Type: LEXISCAN 0.4MG/5ML Date of Procedure/Referring: Date of Procedure: Sep 18, 2019 PCP Franck Gibbons MD Admitting Physician Juan Darden MD Indications: Preoperative cardiovascular risk assessment. Baseline Heart Rate: 66 Baseline Blood Pressure: Blood Pressure Systolic: 105 Blood Pressure Diastolic: 80 Baseline EKG: Baseline EKG: Sinus rhythm Summary & Conclusion: Summary: The patient was brought to the stress lab after informed consent was taken. Stress test was performed according to the Lexiscan protocol. 0.4 mg of IV Lexiscan was given. Low-grade exercise was performed. Baseline EKG showed sinus rhythm at 66 bpm and blood pressure 105/80 mmHg. Maximum heart rate of 76 bpm and blood pressure of 107/71 mmHg. Patient did not have any chest pain, arrhythmias or ST segment changes during the stress test. 10.8 mCi of Myoview were given for rest imaging and 32.8 mCi of Myoview given for stress imaging. Transient ischemic dilatation score 1.04, EF 54 percent. Normal wall motion. Mild severity intermediate size apical reversible defect. Conclusion: Pharmacological stress test was negative for ischemia. Normal LV function with no wall motion abnormalities. Likely evidence of apical ischemia. Franck GIBBONS MD Sep 22, 2019 15:05
== END ==
LOC: CARD 11:06
PROVIDERS: ATTEND Internal Medicine Interventional Cardiology
DX: Z01.810 Encounter for preprocedural cardiovascular examination (principal); I25.10 Atherosclerotic heart disease of native coronary artery without angina pectoris; I10 Essential (primary) hypertension; E78.01 Familial hypercholesterolemia; Z72.0 Tobacco use
CPT/HCPCS: 78452; 93017; A9502

== ENCOUNTER 2019-09-22 09:17 | Inpatient (IN) | payer MEDICARE ==
[2019-09-22] VITALS (12 sets, daily range): BP systolic 110–142; BP diastolic 70–89
[~2019-09-22] VITALS: Ht 162 cm; Wt 90.7 kg
[~2019-09-22 09:17] MED LIST changes: -AMLO10TA7 PO; -CARV12.52 PO; -CARV12.53 PO; -CATHETER FLUSH 10 ML SYR IV PRN; -MORP-68 PO; -NEBI5TAB8 PO; -REGADENOSON 0.4 MG/5 ML SYR (LEXISCAN) IV ONE
[2019-09-22 10:28] LABS: BASOPHILS % (AUTO) 0 % (0-10); EOSINOPHILS % (AUTO) 0 % (0-10); HEMATOCRIT 39 % (40-54); HEMOGLOBIN 12.2 G/DL (13.3-17.7); LYMPHOCYTES # (AUTO) 0.8 X 10^3 (1.0-4.0); LYMPHOCYTES % (AUTO) 5 % (12-44); MEAN CORPUSCULAR HEMOGLOBIN 31 PG (25-34); MEAN CORPUSCULAR HGB CONC 31 G/DL (32-36); MEAN CORPUSCULAR VOLUME 99 FL (80-99); MEAN PLATELET VOLUME 10.5 FL (7.4-10.4); MONOCYTES # (AUTO) 1.3 X 10^3 (0.0-1.0); MONOCYTES % (AUTO) 9 % (0-12); NEUTROPHILS % (AUTO) 85 % (42-75); PLATELET COUNT 155 10^3/uL (130-400); RED CELL DISTRIBUTION WIDTH 15.8 % (10.0-14.5); WHITE BLOOD COUNT 14.2 10^3/uL (4.3-11.0)
[2019-09-22 10:31] LABS: ALBUMIN 4.2 GM/DL (3.2-4.5); CHLORIDE 103 MMOL/L (98-107); SODIUM 140 MMOL/L (135-145)
[2019-09-22 10:33] LABS: CALCIUM 9.1 MG/DL (8.5-10.1)
[2019-09-22 10:34] LABS: GLUCOSE 151 MG/DL (70-105); TOTAL PROTEIN 7.9 GM/DL (6.4-8.2)
[2019-09-22 10:35] LABS: CARBON DIOXIDE 24 MMOL/L (21-32)
[2019-09-22 10:36] LABS: BILIRUBIN,TOTAL 0.5 MG/DL (0.1-1.0)
[2019-09-22 10:37] LABS: ALKALINE PHOSPHATASE 58 U/L (40-136)
[2019-09-22 10:38] LABS: CREATININE SERUM 1.14 MG/DL (0.60-1.30); GFR ESTIMATED > 60
[2019-09-22 10:39] LABS: BUN/CREATININE RATIO 19
[2019-09-22 10:40] LABS: ALANINE AMINOTRANSFERASE 28 U/L (0-55)
[2019-09-22 10:50] LABS: FIBRIN DEGRADATION PRODUCTS 1.74 UG/ML (0.00-0.49); PROTHROMBIN TIME PATIENT 13.8 SEC (12.2-14.7)
[2019-09-22 10:53] LABS: BAND NEUTROPHILS 8 %; BASOPHILS % (MANUAL) 0 %; EOSINOPHILS % (MANUAL) 0 %; LYMPHOCYTES % (MANUAL) 8 %; MONOCYTES % (MANUAL) 9 %; NEUTROPHILS % (MANUAL) 75 %
[2019-09-22 10:54] LABS: ANISOCYTOSIS SLIGHT; ERYTHROCYTE SEDIMENTATION RATE 43 MM/HR (0-30)
[2019-09-22] MEDS ORDERED: LACTATED RINGERS 1,000 ML IV STA (10:56)
[2019-09-22] MEDS ORDERED: LACTATED RINGERS 2,000 ML IV ONE (10:56)
[2019-09-22] MEDS ORDERED: LACTATED RINGERS 1,000 ML IV ONE (10:56)
--- NOTE | 2019-09-22 11:21 | Diagnostic Imaging Report ---
EXAMINATION: Chest 1 view HISTORY: Cough and shortness of breath. COMPARISON: Chest radiograph on 04/07/2019. FINDINGS: Lung volumes are low. Patchy opacities are seen scattered throughout the lungs, greatest in the right hemithorax. This is increased compared to the prior exam. Stable prominent cardiac silhouette with post-CABG changes noted. No large pleural effusion or pneumothorax. Fusion changes are noted in the cervical spine. IMPRESSION: 1. Patchy opacities scattered throughout the lungs, concerning for infectious or inflammatory process. These are new since the prior exam. No pleural effusion. 2. Stable cardiomegaly. No overt pulmonary edema. Dictated by: Dictated on workstation # [id number]
--- NOTE | 2019-09-22 12:04 | ED General ---
General Chief Complaint: Respiratory Problems Stated Complaint: POSS PNEUMONIA Nursing Triage Note: PT TO RM 9 BY WHEELCHAIR WITH COMPLAINT OF COUGH AND SOA THAT STARTED YESTERDAY. PT DENIES TRAVEL OR EXPOSURE TO KNOWN COVID AREAS OR INFECTIOUS PEOPLE. STATES WAS AT HOSPITAL LAST WEEK GETTING A STRESS TEST AND ECHO. Nursing Sepsis Screen: No Definite Risk Source of Information: Patient Exam Limitations: No Limitations History of Present Illness Date Seen by Provider: Sep 22, 2019 Time Seen by Provider: 10:19 Initial Comments Here with report of cough, shortness of air and overall not feeling well. Started yesterday and has worsened through the day. Was seen at the hospital last week for a preop evaluation for neck surgery including stress test and cardiac echo. Does admit that he went to a last Sunday. This is been his only outside exposure except for the hospital per the patient. Also complains of constipation and has that sometimes due to his pain medicine requirements for his neck issues. Denies nausea or vomiting. Does admit to w patrizia. Has to move around with a walker due to decreased mobility due to spinal stenosis. Has chronic right arm pain secondary to the neck stenosis. Reports taking his meds as directed. Arrives with a fever and O2 sat in the 80s. He is not normally on oxygen. Timing/Duration: 1-2 Days, Getting Worse Severity: Moderate Associated Systoms: No Chest Pain; Cough, Fever/Chills; No Nausea/Vomiting; Shortness of Air, Weakness Allergies and Home Medications Allergies Coded Allergies: Penicillins (Verified Allergy, Unknown, 12/06/18) niacin (Verified Allergy, Unknown, 12/06/18) Home Medications Acetaminophen 500 Mg Tablet, 1,000 MG PO Q8H PRN for PAIN-MILD, (Reported) Allopurinol 300 Mg Tablet, 300 MG PO DAILY, (Reported) Aspirin 325 Mg Tablet.dr, 325 MG PO DAILY, (Reported) Cefdinir 300 Mg Capsule, 300 MG PO BID Prescribed by: HALEY MARKHAM on 12/09/18 1033 Clopidogrel Bisulfate 75 Mg Tablet, 75 MG PO DAILY, (Reported) Fluticasone Propionate 9.9 Ml [place].susp, 1 SPRAY NS DAILY PRN for CONGESTION, (Reported) 1 SPRAY EACH NARE DAILY Ibuprofen 200 Mg Tablet, 400 MG PO Q8H PRN for PAIN-MILD, (Reported) Montelukast Sodium 10 Mg Tablet, 10 MG PO HS, (Reported) Morphine Sulfate 30 Mg Tablet.er, 30 MG PO BID PRN for PAIN-SEVERE, (Reported) Multivits-Minerals/FA/Lycopene 1 Each Tablet, 1 EACH PO DAILY, (Reported) Omeprazole 20 Mg Capsule.dr, 20 MG PO DAILY, (Reported) TAKES MED BEFORE HE EATS Oxycodone HCl/Acetaminophen 1 Each Tablet, 1 TAB PO TID PRN for PAIN-MODERATE, (Reported) Rosuvastatin Calcium 20 Mg Tablet, 20 MG PO HS, (Reported) Sertraline HCl 100 Mg Tablet, 100 MG PO HS, (Reported) Temazepam 30 Mg Capsule, 30 MG PO HS, (Reported) Patient Home Medication List Home Medication List Reviewed: Yes Review of Systems Review of Systems Constitutional: see HPI; No chills; fever, weakness EENTM: nose congestion; No throat pain Respiratory: cough, short of breath Cardiovascular: No chest pain; edema (mild) Gastrointestinal: No abdominal pain; constipation; No nausea, No vomiting Genitourinary: No dysuria, No pain Musculoskeletal: back pain, muscle pain, muscle weakness, neck pain Skin: No change in color, No lesions Psychiatric/Neurological: Denies Headache; Weakness Hematologic/Lymphatic: No Symptoms Reported All Other Systems Reviewed Negative Unless Noted: Yes Past Emscdkq-Perjur-Gotpxb Hx Past Med/Social Hx: Reviewed Nursing Past Med/Soc Hx Patient Social History Alcohol Use: Denies Use Recreational Drug Use: No Type Used: Smokeless Tobacco 2nd Hand Smoke Exposure: No Recent Foreign Travel: No Contact w/Someone Who Travel: No Recent Infectious Disease Expo: No Recent Hopitalizations: No Seasonal Allergies Seasonal Allergies: No Past Medical History Surgeries: Yes CABG, Coronary Stent Respiratory: Yes (Nocturnal Hypoxemia) Cardiac: Yes (Chronic ischemic heart disease) Coronary Artery Disease, Heart Attack, High Cholesterol, Hypertension Neurological: No Genitourinary: No Gastrointestinal: Yes Gastroesophageal Reflux, Hiatal Hernia Musculoskeletal: Yes (Carpal tunnel syndrome, Degenerative Arthritis) Arthritis Endocrine: Yes (Hypercalcemia) HEENT: No Cancer: No Psychosocial: No Integumentary: No Blood Disorders: No Adverse Reaction/Blood Tranf: No Family Medical History Reviewed Nursing Family Hx Physical Exam-Suspected Sepsis Physical Exam Vital Signs Vital Signs - First Documented 09/22/19 09:50 Temp 38.0 Pulse 89 Resp 18 B/P (MAP) 124/73 (90) Pulse Ox 94 O2 Delivery Nasal Cannula O2 Flow Rate 2.00 Capillary Refill : Less Than 3 Seconds Blood Pressure Mean: 90 Height, Weight, BMI Height: 5'4.00" Weight: 192lbs. 0.9oz. [id number]; 34.00 BMI Method:Stated General Appearance: WD/WN, Mild Distress, Obese HEENT: PERRL/EOMI, Pharynx Normal Neck: Non Tender, Supple Respiratory: No Accessory Muscle Use, Crackles (along the right lateral aspect), Expiration, Inspiration Cardiovascular: Regular Rate, Rhythm, No Murmur Gastrointestinal: Non Tender, Soft Back: Normal Inspection, No CVA Tenderness, Decreased Range of Motion (chronic upper back and neck decreased mobility), Other (does have chronic neck and upper back pain that is unchanged per the patient) Extremity: No Calf Tenderness, Pedal Edema (trace bilateral lower extremities), Other (decreased range of motion to the right arm secondary to pain which is chronic) Neurologic/Psychiatric: Alert, Oriented x3, No Motor/Sensory Deficits Skin: normal color, warm/dry Focused Exam Lactate Level 09/22/19 10:07: Lactic Acid Level 2.32*H Lactic Acid Level Laboratory Tests Test 09/22/19 10:07 Lactic Acid Level 2.32 MMOL/L (0.50-2.00) *H Progress/Results/Core Measures Suspected Sepsis Recent Fever Within 48 Hours: No Infection Criteria Present: None New/Unexplained Altered Menta: No Sepsis Screen: No Definite Risk SIRS Temperature: Pulse: 89 Respiratory Rate: 18 Laboratory Tests 09/22/19 10:07: White Blood Count 14.2H Blood Pressure 124 /73 Mean: 90 09/22/19 10:07: Lactic Acid Level 2.32*H Laboratory Tests 09/22/19 10:07: Creatinine 1.14, INR Comment 1.0, Platelet Count 155, Total Bilirubin 0.5 Results/Orders Lab Results Laboratory Tests Test 09/22/19 10:07 09/22/19 10:13 09/22/19 11:40 Range/Units White Blood Count 14.2 H 4.3-11.0 10^3/uL Red Blood Count 3.95 L 4.35-5.85 10^6/uL Hemoglobin 12.2 L 13.3-17.7 G/DL Hematocrit 39 L 40-54 % Mean Corpuscular Volume 99 80-99 FL Mean Corpuscular Hemoglobin 31 25-34 PG Mean Corpuscular Hemoglobin Concent 31 L 32-36 G/DL Red Cell Distribution Width 15.8 H 10.0-14.5 % Platelet Count 155 130-400 10^3/uL Mean Platelet Volume 10.5 H 7.4-10.4 FL Neutrophils (%) (Auto) 85 H 42-75 % Lymphocytes (%) (Auto) 5 L 12-44 % Monocytes (%) (Auto) 9 0-12 % Eosinophils (%) (Auto) 0 0-10 % Basophils (%) (Auto) 0 0-10 % Neutrophils # (Auto) 12.0 H 1.8-7.8 X 10^3 Lymphocytes # (Auto) 0.8 L 1.0-4.0 X 10^3 Monocytes # (Auto) 1.3 H 0.0-1.0 X 10^3 Eosinophils # (Auto) 0.0 0.0-0.3 10^3/uL Basophils # (Auto) 0.0 0.0-0.1 10^3/uL Neutrophils % (Manual) 75 % Lymphocytes % (Manual) 8 % Monocytes % (Manual) 9 % Eosinophils % (Manual) 0 % Basophils % (Manual) 0 % Band Neutrophils 8 % Anisocytosis SLIGHT Erythrocyte Sedimentation Rate 43 H 0-30 MM/HR Prothrombin Time 13.8 12.2-14.7 SEC INR Comment 1.0 0.8-1.4 Activated Partial Thromboplast Time 32 24-35 SEC D-Dimer 1.74 H 0.00-0.49 UG/ML Sodium Level 140 135-145 MMOL/L Potassium Level 4.0 3.6-5.0 MMOL/L Chloride Level 103 98-107 MMOL/L Carbon Dioxide Level 24 21-32 MMOL/L Anion Gap 13 5-14 MMOL/L Blood Urea Nitrogen 22 H 7-18 MG/DL Creatinine 1.14 0.60-1.30 MG/DL Estimat Glomerular Filtration Rate > 60 BUN/Creatinine Ratio 19 Glucose Level 151 H 70-105 MG/DL Lactic Acid Level 2.32 *H 0.50-2.00 MMOL/L Calcium Level 9.1 8.5-10.1 MG/DL Corrected Calcium 8.9 8.5-10.1 MG/DL Total Bilirubin 0.5 0.1-1.0 MG/DL Aspartate Amino Transf (AST/SGOT) 22 5-34 U/L Alanine Aminotransferase (ALT/SGPT) 28 0-55 U/L Alkaline Phosphatase 58 40-136 U/L Lactate Dehydrogenase 215 125-220 U/L C-Reactive Protein High Sensitivity 6.55 H 0.00-0.50 MG/DL B-Type Natriuretic Peptide 101.3 H <100.0 PG/ML Total Protein 7.9 6.4-8.2 GM/DL Albumin 4.2 3.2-4.5 GM/DL Procalcitonin 2.02 H <0.10 NG/ML My Orders Orders - RAMONA GONZALES MD Cbc With Automated Diff (09/22/19 10:18) Comprehensive Metabolic Panel (09/22/19 10:18) Blood Culture (09/22/19 10:18) Sputum Culture (09/22/19 10:18) Urinalysis (09/22/19 10:18) Urine Culture (09/22/19 10:18) Protime With Inr (09/22/19 10:18) Partial Thromboplastin Time (09/22/19 10:18) Chest 1 View, Ap/Pa Only (09/22/19 10:18) Ed Iv/Invasive Line Start (09/22/19 10:18) Ed Iv/Invasive Line Start (09/22/19 10:18) Vital Signs Adult Sepsis Patie Q15M (09/22/19 10:18) O2 (09/22/19 10:18) Remove Rings In Anticipation O (09/22/19 10:18) Lactic Acid Analyzer (09/22/19 10:18) Fibrin Degradation Products (09/22/19 10:18) Procalcitonin (Pct) (09/22/19 10:18) Hs C Reactive Protein (09/22/19 10:18) Erythrocyte Sedimentation Rate (09/22/19 10:18) LDH (09/22/19 10:18) Coronavirus Sars-Cov-2 So 2018 (09/22/19 10:18) BNP (09/22/19 10:18) Manual Differential (09/22/19 10:07) Ed Iv/Invasive Line Start (09/22/19 10:56) Lactated Ringers (Lr 1000 Ml Iv Solution (09/22/19 10:56) Lactated Ringers (Lr 1000 Ml Iv Solution (09/22/19 10:56) Lactated Ringers (Lr 1000 Ml Iv Solution (09/22/19 10:56) Covid-19 Igg Only So (09/22/19 11:46) Cefepime Injection (Maxipime Injection) (09/22/19 12:00) Medications Given in ED Current Medications Medications Dose Ordered Sig/Krystle Route Start Time Stop Time Status Last Admin Dose Admin Lactated Ringer's 1,000 ml @ 0 mls/hr Q0M ONCE IV 09/22/19 10:56 09/22/19 10:58 DC 09/22/19 11:06 0 MLS/HR Vital Signs/I&O 09/22/19 09:50 Temp 38.0 Pulse 89 Resp 18 B/P (MAP) 124/73 (90) Pulse Ox 94 O2 Delivery Nasal Cannula O2 Flow Rate 2.00 Capillary Refill : Less Than 3 Seconds Blood Pressure Mean: 90 Progress Note : Progress Note Seen and evaluated. Sepsis protocol initiated. We will also initiate COVID-19 screening due to presenting symptoms and travel. Patient is hypoxic. Labs, UA, chest x-ray and O2 initiated. Normal saline 2 L IV ordered. Chest x-ray is concerning for COVID signs but also has mixed picture and may be bacterial pneumonia. 1135: I discussed the case with Dr. Quiñones. Because of the COVID evaluation, patient will go under the care of Dr. Llamas as he is going to the ICU. 1050: I discussed the case with Dr. Llamas and he accepts patient for admission to the ICU and will transfer care once able to clear COVID-19 concerns. We have added COVID-19 antibody test as well as the swab test to fully evaluate patient. Cefepime 1 g IV initiated. Patient's blood pressure is greater than 100 systolic and he has not shown signs of septic shock. High-volume fluid resuscitation at this point is not required although he did get approximately 20/kg of fluids. There is some concerns about underlying heart failure although echo done last week showed normal EF. Patient will be admitted to the ICU and further monitoring initiated as indicated. Dr. Llamas agrees to admission and plan. I did discuss findings and concerns with the patient and his family via phone and they agree with plan as well. Diagnostic Imaging Diagonstic Imaging: Xray Plain Films/CT/US/NM/MRI: chest Comments [facility] [place], [place] NAME: FRANCO CURRAN [facility] REC#: [id number] PT STATUS: REG ER : 1955 PHYSICIAN: RAMONA GONZALES MD ADMIT DATE: 09/22/19/ER Signed Date of Exam:09/22/19 CHEST 1 VIEW, AP/PA ONLY EXAMINATION: Chest 1 view HISTORY: Cough and shortness of breath. COMPARISON: Chest radiograph on 04/07/2019. FINDINGS: Lung volumes are low. Patchy opacities are seen scattered throughout the lungs, greatest in the right hemithorax. This is increased compared to the prior exam. Stable prominent cardiac silhouette with post-CABG changes noted. No large pleural effusion or pneumothorax. Fusion changes are noted in the cervical spine. IMPRESSION: 1. Patchy opacities scattered throughout the lungs, concerning for infectious or inflammatory process. These are new since the prior exam. No pleural effusion. 2. Stable cardiomegaly. No overt pulmonary edema. Dictated by: Dictated on workstation # [id number] Dict: 09/22/19 1116 Trans: 09/22/19 1136 [id number] Interpreted by: HAKAN MCGEE DO Electronically signed by: HAKAN MCGEE DO 09/22/19 1136 Reviewed: Reviewed by Me Departure Communication (Admissions) Time/Spoke to Admitting Phy: 11:50 Impression Primary Impression: Bilateral pneumonia Qualified Codes: J18.9 - Pneumonia, unspecified organism Additional Impression: COVID-19 evaluation Disposition: ADMITTED INPATIENT Condition: Stable Admissions Decision to Admit Reason: Admit from ER (General) Decision to Admit/Date: Sep 22, 2019 Time/Decision to Admit Time: 11:30 Departure-Patient Inst. Referrals: JATINDER FRANKLIN MD (PCP/Family) Primary Care Physician RAMONA GONZALES MD Sep 22, 2019 12:04
--- OUTSIDE RECORDS SUMMARY | 2019-09-22 12:04 | XMS REPORT | Continuity of Care Document ---
Author Organization Unknown Address Unknown Phone Unavailable Allergies Active Description Code Type Severity Reaction Onset Reported/Identified Relationship to Patient Clinical Status Yes niacin [id number] Drug Allergy Unknown N/A 12/06/2018 Yes No Known Drug Allergies [id number] Drug Allergy Unknown N/A 12/06/2018 Yes Penicillins [id number] Drug Aller gy Unknown N/A 12/06/2018 Medications There is no data. Problems Date Dx Coded Attending Type Code Diagnosis Diagnosed By 10/05/2018 KARTIK UREÑA DO, Ot I10 ESSENTIAL (PRIMARY) HYPERTENSION 10/05/2018 KARTIK UREÑA DO, Ot I25.10 ATHSCL HEART DISEASE OF [place] CORONARY 10/05/2018 KARTIK UREÑA DO, Ot J01.90 ACUTE SINUSITIS, UNSPECIFIED 10/05/2018 KARTIK UREÑA DO, Ot R09.81 NASAL CONGESTION 10/07/2018 KARTIK UREÑA DO, Ot I10 ESSENTIAL (PRIMARY) HYPERTENSION 10/07/2018 KARTIK UREÑA DO, Ot I25.10 ATHSCL HEART DISEASE OF [place] CORONARY 10/07/2018 KARTIK UREÑA DO, Ot J01.90 ACUTE SINUSITIS, UNSPECIFIED 10/07/2018 KARTIK UREÑA DO, Ot R09.81 NASAL CONGESTION 12/09/2018 YUMIKO KIM MD Ot A41 .9 SEPSIS, UNSPECIFIED ORGANISM 12/09/2018 YUMIKO KIM MD Ot D53 .9 NUTRITIONAL ANEMIA, UNSPECIFIED 12/09/2018 YUMIKO KIM MD Ot E78.00 PURE HYPERCHOLESTEROLEMIA, UNSPECIFIED 12/09/2018 YUMIKO KIM MD Ot F17.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, CHEWING TOBACCO, UN 12/09/2018 YUMIKO KIM MD Ot I10 ESSENTIAL (PRIMARY) HYPERTENSION 12/09/2018 YUMIKO KIM MD Ot I25.10 ATHSCL HEART DISEASE OF [place] CORONARY 12/09/2018 YUMIKO KIM MD Ot J18 .1 LOBAR PNEUMONIA, UNSPECIFIED ORGANISM 12/09/2018 YUMIKO KIM MD Ot K21 .9 GASTRO-ESOPHAGEAL REFLUX DISEASE WITHOUT 12/09/2018 YUMIKO KIM MD Ot K44 .9 DIAPHRAGMATIC HERNIA WITHOUT OBSTRUCTION 12/09/2018 YUMIKO KIM MD Ot M19.91 PRIMARY OSTEOARTHRITIS, UNSPECIFIED SITE 12/09/2018 YUMIKO KIM MD Ot M54 .9 DORSALGIA, UNSPECIFIED 12/09/2018 YUMIKO KIM MD Ot R06.03 ACUTE RESPIRATORY DISTRESS 12/09/2018 YUMIKO KIM MD Ot R09.02 HYPOXEMIA 12/09/2018 YUMIKO KIM MD Ot R51 HEADACHE 12/09/2018 YUMIKO KIM MD Ot Z95 .1 PRESENCE OF AORTOCORONARY BYPASS GRAFT 12/09/2018 YUMIKO KIM MD Ot Z95 .5 PRESENCE OF CORONARY ANGIOPLASTY IMPLANT 12/09/2018 YUMIKO KIM MD Ot Z99.81 DEPENDENCE ON SUPPLEMENTAL OXYGEN 02/06/2019 ROXIE CAMPBELL MD, Ot M47.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, [place] 02/11/2019 ROXIE CAMPBELL MD Ot M47.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, [place] 04/07/2019 ROXIE CAMPBELL MD Ot M47.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, [place] 04/09/2019 JATINDER FRANKLIN MD Ot B96.89 OTH BACTERIAL AGENTS THE CAUSE OF DIS 04/09/2019 JATINDER FRANKLIN MD Ot J20.8 ACUTE BRONCHITIS DUE TO OTHER SPECIFIED 04/09/2019 JATINDER FRANKLIN MD Ot Z98.89 0 OTHER SPECIFIED POSTPROCEDURAL STATES 04/13/2019 JATINDER FRANKLIN MD Ot B96.89 OTH BACTERIAL AGENTS THE CAUSE OF DIS 04/13/2019 JATINDER FRANKLIN MD Ot J20.8 ACUTE BRONCHITIS DUE TO OTHER SPECIFIED 04/13/2019 JATINDER FRANKLIN MD Ot Z98.89 0 OTHER SPECIFIED POSTPROCEDURAL STATES 09/11/2019 ROXIE CAMPBELL MD Ot M47.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, [place] 09/11/2019 JATINDER FRANKLIN MD Ot B96.89 OTH BACTERIAL AGENTS THE CAUSE OF DIS 09/11/2019 JATINDER FRANKLIN MD Ot J20.8 ACUTE BRONCHITIS DUE TO OTHER SPECIFIED 09/11/2019 JATINDER FRANKLIN MD Ot Z98.89 0 OTHER SPECIFIED POSTPROCEDURAL STATES 09/17/2019 Franck HERNANDEZ MD Ot E78.01 FAMILIAL HYPERCHOLESTEROLEMIA 09/17/2019 Franck HERNANDEZ MD, Ot I10 ESSENTIAL (PRIMARY) HYPERTENSION 09/17/2019 Franck HERNANDEZ MD, Ot I25.10 ATHSCL HEART DISEASE OF [place] CORONARY 09/17/2019 Franck HERNANDEZ MD, Ot Z01.810 ENCOUNTER FOR PREPROCEDURAL CARDIOVASCUL 09/17/2019 Franck HERNANDEZ MD, Ot Z72 .0 TOBACCO USE Procedures There is no data. Results Test Result Range CMP - 09/03/18 15:25 GLUCOSE 116 mg/dL 65-139 UREA NITROGEN (BUN) 18 mg/dL 7-25 CREATININE 0.86 mg/dL 0.70-1.25 eGFR NON-AFR. [place] 91 mL/min/1.73m2 > OR = 60 eGFR 105 mL/min/1.73m2 > OR = 60 BUN/CREATININE RATIO NOT APPLICABLE (calc) 6-22 SODIUM 136 mmol/L 135-146 POTASSIUM 4.0 mmol/L 3.5-5.3 CHLORIDE 98 mmol/L 98-110 CARBON DIOXIDE 29 mmol/L 20-32 CALCIUM 8.8 mg/dL 8.6-10.3 PROTEIN, TOTAL 7.3 g/dL 6.1-8.1 ALBUMIN 3.4 g/dL 3.6-5.1 GLOBULIN 3.9 g/dL (calc) 1.9-3.7 ALBUMIN/GLOBULIN RATIO 0.9 (calc) 1.0-2. 5 BILIRUBIN, TOTAL 0.5 mg/dL 0.2-1.2 ALKALINE PHOSPHATASE 137 U/L 40-115 AST 34 U/L 10-35 ALT 39 U/L 9-46 CBC w/MANUAL DIFF - 09/03/18 15:25 WHITE BLOOD CELL COUNT 14.2 Thousand/uL 3.8-10.8 RED BLOOD CELL COUNT 3.41 Million/uL 4.2 0-5.80 HEMOGLOBIN 10.7 g/dL 13.2-17.1 HEMATOCRIT 32.5 % 38.5-50.0 MCV 95.3 fL 80.0-100.0 MCH 31.4 pg 27.0-33.0 MCHC 32.9 g/dL 32.0-36.0 RDW 14.3 % 11.0-15.0 PLATELET COUNT 271 Thousand/uL 140-400 MPV 10.9 fL 7.5-12.5 ABSOLUTE NEUTROPHILS 94470 cells/uL 1500 -7800 ABSOLUTE MONOCYTES 724 cells/uL 200-950 ABSOLUTE EOSINOPHILS 0 cells/uL 15-500 ABSOLUTE BASOPHILS 0 cells/uL 0-200 NEUTROPHILS 82.8 % NRG LYMPHOCYTES 12.1 % NRG MONOCYTES 5.1 % NRG EOSINOPHILS 0 % NRG BASOPHILS 0 % NRG ABSOLUTE LYMPHOCYTES 1718 cells/uL 850-3 900 PLATELET ESTIMATION ADEQUATE ADEQUATE COMMENT(S) NRG STOOL (WBC) - 09/05/18 16:13 FECAL LEUKOCYTE STAIN SEE NOTE NRG GIARDIA, STOOL - 09/05/18 16:13 GIARDIA AG, EIA, STOOL SEE NOTE NRG STOOL (C-DIFF) - 09/05/18 16:13 CLOSTRIDIUM DIFFICILE TOXIN/GDH W/REFL TO PCR SEE NOTE NRG Complete blood count (CBC) with automate d white blood cell (WBC) differential - 12/06/18 15:00 Blood leukocytes automated count (number/volume) 23.0 10*3/uL 4.3-11.0 Blood erythrocytes automated count (number/volume) 3.47 10*6/uL 4.35-5.85 Venous blood hemoglobin measurement (mass/volume) 11.1 g/dL 13.3-17.7 Blood hematocrit (volume fraction) 35 % 40-54 Automated erythrocyte mean corpuscular volume 100 [foz_us] 80-99 Automated erythrocyte mean corpuscular h emoglobin (mass per erythrocyte) 32 pg 25-34 Automated erythrocyte mean corpuscular h emoglobin concentration measurement (mass/volume) 32 g/dL 32-36 Automated erythrocyte distribution width ratio 15. 6 % 10.0- 14.5 Automated blood platelet count (count/volume) 194 10*3/uL 130-400 Automated blood platelet mean volume measurement 10.7 [foz_us] 7.4-10.4 Automated blood neutrophils/100 leukocytes 90 % 42-75 Automated blood lymphocytes/100 leukocytes 4 % 12-44 Blood monocytes/100 leukocytes 5 % 0-12 Automated blood eosinophils/100 leukocytes 0 % 0-10 Automated blood basophils/100 leukocytes 0 % 0-10 Blood neutrophils automated count (number/volume) 20.6 10*3 1.8-7.8 Blood lymphocytes automated count (number/volume) 1.0 10*3 1.0-4.0 Blood monocytes automated count (number/volume) 1. 2 10*3 0.0-1.0 Automated eosinophil count 0.0 10*3/uL 0 .0-0.3 Automated blood basophil count (count/volume) 0.0 10*3/uL 0.0-0.1 Blood lactic acid measurement (moles/vol ume) - 12/06/18 15:00 Blood lactic acid measurement (moles/volume) 2.89 mmol/L 0.50-2.00 PT panel in platelet poor plasma by coag ulation assay - 12/06/18 15:00 Prothrombin time (PT) in platelet poor plasma by coagu lation assay 14.5 s 12.2-14.7 INR in platelet poor plasma or blood by coagulation as say 1.1 0.8-1.4 Activated partial thromboplastin time (a PTT) in platelet poor plasma bycoagulation assay - 12/06/18 15:00 Activated partial thromboplastin time (a PTT) in platelet poor plasma bycoagulation assay 32 s 24-35 Comprehensive metabolic panel - 12/06/18 15:00 Serum or plasma sodium measurement (moles/volume) 140 mmol/L 135-145 Serum or plasma potassium measurement (moles/volume) 4.8 mmol/L 3.6-5.0 Serum or plasma chloride measurement (moles/volume) 101 mmol/L 98-107 Carbon dioxide 23 mmol/L 21-32 Serum or plasma anion gap determination (moles/volume) 16 mmol/L 5-14 Serum or plasma urea nitrogen measurement (mass/volume ) 27 mg/dL 7-18 Serum or plasma creatinine measurement (mass/volume) 1.39 mg/dL 0.60-1.30 Serum or plasma urea nitrogen/creatinine mass ratio 19 NRG Serum or plasma creatinine measurement w ith calculation of estimated glomerular filtration rate 51 NRG Serum or plasma glucose measurement (mass/volume) 142 mg/dL 70-105 Serum or plasma calcium measurement (mass/volume) 9.0 mg/dL 8.5-10.1 Serum or plasma total bilirubin measurement (mass/volu me) 0.3 mg/dL 0.1-1.0 Serum or plasma alkaline phosphatase дмитрий surement (enzymatic activity/volume) 59 U/L 40-136 Serum or plasma aspartate aminotransfera se measurement (enzymatic activity/volume) 19 U/L 5-34 Serum or plasma alanine aminotransferase measurement (enzymatic activity/volume) 15 U/L 0-55 Serum or plasma protein measurement (mass/volume) 7.5 g/dL 6.4-8.2 Serum or plasma albumin measurement (mass/volume) 3.9 g/dL 3.2-4.5 CALCIUM CORRECTED 9.1 mg/dL 8.5-10.1 Serum or plasma troponin i.cardiac measu rement (mass/volume) - 12/06/18 15:00 Serum or plasma troponin i.cardiac measurement (mass/v olume) < ng/mL <0.30 PROBNP FS - 12/06/18 15:00 PROBNP FS 906.9 pg/mL <75.0 Manual absolute plasma cell count - 11/15 07/02 15:00 Blood monocytes/100 leukocytes 6 % NRG Manual blood segmented neutrophils/100 leukocytes 81 % NRG Blood band neutrophils/100 leukocytes 8 % NRG Manual blood lymphocytes/100 leukocytes 4 % NRG Manual eosinophils/100 leukocytes in nose 0 % NRG Manual blood basophils/100 leukocytes 0 % NRG Manual blood metamyelocytes/100 leukocytes 1 % NRG Bacterial blood culture - 12/06/18 15:00 Bacterial blood culture NG NRG Arterial blood gas measurement - 9 15:05 Blood pCO2 44 mm[Hg] 35-45 Blood pO2 57 mm[Hg] 79-93 Arterial blood bicarbonate measurement (moles/volume) 29 mmol/L 23-27 Arterial blood base excess by calculation 3.5 mmol /L -2.5-2.5 Arterial blood oxygen saturation measurement 90 % 94-100 * Inhaled oxygen flow rate 2 L NRG Arterial blood pH measurement with patient temperature correction 7.42 7.37-7.43 Arterial blood carbon dioxide, total measurement (mole s/volume) 29.9 mmol/L 21.0-31.0 Body site LT RADIAL NRG Assessment of wrist artery patency prior to arterial p uncture OK NRG Setting of ventilation mode NO NR G Measurement of body temperature 99.8 NRG Bacterial blood culture - 12/06/18 15:45 Bacterial blood culture NG NRG Serum or plasma lactate measurement (mol es/volume) - 12/06/18 17:10 Serum or plasma lactate measurement (moles/volume) 2.03 mmol/L 0.50-2.00 Blood lactic acid measurement (moles/vol ume) - 12/06/18 21:10 Blood lactic acid measurement (moles/volume) 2.76 mmol/L 0.50-2.00 Serum or plasma lactate measurement (mol es/volume) - 12/06/18 23:27 Serum or plasma lactate measurement (moles/volume) 1.17 mmol/L 0.50-2.00 Complete blood count (CBC) with automate d white blood cell (WBC) differential - 12/07/18 06:21 Blood leukocytes automated count (number/volume) 14.9 10*3/uL 4.3-11.0 Blood erythrocytes automated count (number/volume) 3.08 10*6/uL 4.35-5.85 Venous blood hemoglobin measurement (mass/volume) 9.7 g/dL 13.3-17.7 Blood hematocrit (volume fraction) 31 % 40-54 Automated erythrocyte mean corpuscular volume 101 [foz_us] 80-99 Automated erythrocyte mean corpuscular h emoglobin (mass per erythrocyte) 32 pg 25-34 Automated erythrocyte mean corpuscular h emoglobin concentration measurement (mass/volume) 31 g/dL 32-36 Automated erythrocyte distribution width ratio 16. 0 % 10.0- 14.5 Automated blood platelet count (count/volume) 166 10*3/uL 130-400 Automated blood platelet mean volume measurement 10.3 [foz_us] 7.4-10.4 Automated blood neutrophils/100 leukocytes 79 % 42-75 Automated blood lymphocytes/100 leukocytes 14 % 12-44 Blood monocytes/100 leukocytes 7 % 0-12 Automated blood eosinophils/100 leukocytes 1 % 0-10 Automated blood basophils/100 leukocytes 0 % 0-10 Blood neutrophils automated count (number/volume) 11.8 10*3 1.8-7.8 Blood lymphocytes automated count (number/volume) 2.1 10*3 1.0-4.0 Blood monocytes automated count (number/volume) 1. 0 10*3 0.0-1.0 Automated eosinophil count 0.1 10*3/uL 0 .0-0.3 Automated blood basophil count (count/volume) 0.0 10*3/uL 0.0-0.1 Comprehensive metabolic panel - 12/07/18 06:21 Serum or plasma sodium measurement (moles/volume) 141 mmol/L 135-145 Serum or plasma potassium measurement (moles/volume) 4.4 mmol/L 3.6-5.0 Serum or plasma chloride measurement (moles/volume) 108 mmol/L 98-107 Carbon dioxide 18 mmol/L 21-32 Serum or plasma anion gap determination (moles/volume) 15 mmol/L 5-14 Serum or plasma urea nitrogen measurement (mass/volume ) 22 mg/dL 7-18 Serum or plasma creatinine measurement (mass/volume) 1.02 mg/dL 0.60-1.30 Serum or plasma urea nitrogen/creatinine mass ratio 22 NRG Serum or plasma creatinine measurement w ith calculation of estimated glomerular filtration rate > NRG Serum or plasma glucose measurement (mass/volume) 88 mg/dL 70-105 Serum or plasma calcium measurement (mass/volume) 8.3 mg/dL 8.5-10.1 Serum or plasma total bilirubin measurement (mass/volu me) 0.4 mg/dL 0.1-1.0 Serum or plasma alkaline phosphatase дмитрий surement (enzymatic activity/volume) 47 U/L 40-136 Serum or plasma aspartate aminotransfera se measurement (enzymatic activity/volume) 12 U/L 5-34 Serum or plasma alanine aminotransferase measurement (enzymatic activity/volume) 16 U/L 0-55 Serum or plasma protein measurement (mass/volume) 6.6 g/dL 6.4-8.2 Serum or plasma albumin measurement (mass/volume) 3.4 g/dL 3.2-4.5 CALCIUM CORRECTED 8.8 mg/dL 8.5-10.1 Sputum Gram stain - 12/07/18 12:57 Sputum Gram stain Mixed Bacterial Ernestina [facility] Bacterial sputum culture - 12/07/18 12:5 7 QUANTITY OF GROWTH . [facility] Bacterial sputum culture USUAL RESP [facility] ANEMIA ANALYZER - 12/09/18 05:10 Blood leukocytes automated count (number/volume) 8.1 10*3/uL 4.3-11.0 Blood erythrocytes automated count (number/volume) 3.35 10*6/uL 4.35-5.85 Venous blood hemoglobin measurement (mass/volume) 10.4 g/dL 13.3-17.7 Blood hematocrit (volume fraction) 34 % 40-54 Automated erythrocyte mean corpuscular volume 101 [[facility]] 80-99 Automated erythrocyte mean corpuscular h emoglobin (mass per erythrocyte) 31 pg 25-34 Automated erythrocyte mean corpuscular h emoglobin concentration measurement (mass/volume) 31 g/dL 32-36 Automated erythrocyte distribution width ratio 15. 6 % 10.0- 14.5 Automated blood platelet count (count/volume) 178 10*3/uL 130-400 Automated blood platelet mean volume measurement 11.0 [[facility]] 7.4-10.4 Automated blood neutrophils/100 leukocytes 65 % 42-75 Automated blood lymphocytes/100 leukocytes 24 % 12-44 Blood monocytes/100 leukocytes 4 % NRG Automated blood eosinophils/100 leukocytes 3 % 0-10 Automated blood basophils/100 leukocytes 0 % 0-10 Blood neutrophils automated count (number/volume) 5.3 10*3 1.8-7.8 Blood lymphocytes automated count (number/volume) 1.9 10*3 1.0-4.0 Blood monocytes automated count (number/volume) 0. 7 10*3 0.0-1.0 Automated eosinophil count 0.2 10*3/uL 0 .0-0.3 Automated blood basophil count (count/volume) 0.0 10*3/uL 0.0-0.1 Manual blood segmented neutrophils/100 leukocytes 65 % NRG Blood band neutrophils/100 leukocytes 1 % NRG Manual blood lymphocytes/100 leukocytes 29 % NRG Manual eosinophils/100 leukocytes in nose 1 % NRG Blood erythrocyte morphology finding identification NORMAL NRG Blood reticulocytes count (number/volume) 44 10*9/ L 24-90 Blood reticulocytes/100 erythrocytes 1.30 % 0.50-2.40 Serum or plasma folate measurement (mass /volume) - 12/09/18 05:10 Serum or plasma folate measurement (mass/volume) 1 4.9 ng/mL >=4.0 Serum iron and total iron binding capaci ty panel - 12/09/18 05:10 TIBC 377 ug/dL 280-380 UIBC 344 ug/dL 55-450 Serum or plasma iron measurement (mass/volume) 33 L 40-180 Total iron binding capacity and transferrin saturation measurement 9 L 15-50 VITAMIN B 12 - 12/09/18 05:10 VITAMIN B 12 626 pg/mL 190-1100 Encounters ACCT No. Visit Date/Time Discharge Status Pt. Type Provider Facility Loc./Unit Complaint [id number] 04/17/2019 13:30:00 04/17/2019 23:59: 59 CLS Outpatient DANYA VILLALOBOS [facility] [id number] 09/05/2018 15:00:00 Document Registration [id number] 09/03/2018 14:15:00 Document Registration [id number] 09/18/2019 11:06:00 23:59:59 CLS Outpatient Franck HERNANDEZ MD [facility] CARD PREOP EXAM [id number] 09/15/2019 13:57:00 23:59:59 CLS Outpatient Franck HERNANDEZ MD [facility] CARD PREOP EXAM [id number] 04/07/2019 14:50:00 23:59:59 CLS Outpatient SELF JATINDER RODRIGUEZ [facility] RAD FS J20.8 B96.89 [id number] 01/20/2019 11:14:00 23:59:59 CLS Outpatient ROXIE CAMPBELL MD [facility] RAD FS RADICULOPATHY [id number] 12/06/2018 15:45:00 12:20:00 DIS Inpatient JULIO RODRIGUEZ, YUMIKO Bautista [facility] 4TH PNA,ACUTE RESP DISTRESS [id number] 11/13/2018 10:49:00 23:59:59 CLS Preadmit JATINDER FRANKLIN MD [facility] RAD RADICULAR SYNDROME OF R IGHT LEG [id number] 10/05/2018 22:12:00 22:57:00 DIS Emergency KARTIK UREÑA DO [facility] ER FS TROUBLE BREATHING
[2019-09-22] MEDS ORDERED: WATER (STERILE) FOR INJECTION 10 ML ONE (12:12)
[2019-09-22] MEDS: CEFEPIME 1 GM (MAXIPIME) VIAL ONE ×2 (12:18→12:43)
[2019-09-22] MEDS: CEFEPIME INJECTION 1,000 MG in WATER (STERILE) FOR INJECTION 10 ML IV ONE ×2 (12:42→13:42)
[2019-09-22] MEDS ORDERED: CATHETER FLUSH 10 ML SYR IV PRN (12:45)
[2019-09-22] MEDS ORDERED: EPINEPHrine 1 MG INJECTION 2 MG in NS (IVPB) 248 ML IV SCH (12:45)
[2019-09-22] MEDS ORDERED: ONDANSETRON 4 MG/2 ML (SDV) Z0FRAN IV PRN (12:45)
[2019-09-22] MEDS ORDERED: morphine INJ 10 MG/ML 1ML (SYR OR VIAL) IV PRN (12:45)
[2019-09-22] MEDS: VASOPRESSIN INJECTION 20 UNIT in NORMAL SALINE 100 ML IV SCH ×2 (13:37→20:38)
[2019-09-22] MEDS: NOREPINEPHRINE 4 MG/250 ML 250 ML IV SCH ×2 (13:37→20:38)
[2019-09-22] MEDS: LACTATED RINGERS 1,000 ML IV SCH ×2 (13:38→20:21)
--- NOTE | 2019-09-22 14:01 | Pulmonary Consultation ---
History of Present Illness History of Present Illness Date Seen by Provider: Sep 22, 2019 Time Seen by Provider: 13:56 Date of Admission History of Present Illness 64yo presented to ED secondary to worsening SOB and cough that started yesterday. He denies travel hx and no infectious contacts. Upon ED admission Sp02 was in the 80's. Pt does not normally use oxygen. Pt was admitted to ICU for close observation. Denies CP n, V. I am admitted for pulmonary/ICU management. Allergies and Home Medications Allergies Coded Allergies: Penicillins (Verified Allergy, Unknown, Pt has rec Rocephin in the past w/o issue, 09/22/19) niacin (Verified Allergy, Unknown, 12/06/18) Home Medications Acetaminophen 500 Mg Tablet, 1,000 MG PO Q8H PRN for PAIN-MILD, (Reported) Allopurinol 300 Mg Tablet, 300 MG PO DAILY, (Reported) Aspirin 325 Mg Tablet.dr, 325 MG PO DAILY, (Reported) Cefdinir 300 Mg Capsule, 300 MG PO BID Prescribed by: HALEY MARKHAM on 12/09/18 1033 Clopidogrel Bisulfate 75 Mg Tablet, 75 MG PO DAILY, (Reported) Fluticasone Propionate 9.9 Ml [place].susp, 1 SPRAY NS DAILY PRN for CONGESTION, (Reported) 1 SPRAY EACH NARE DAILY Ibuprofen 200 Mg Tablet, 400 MG PO Q8H PRN for PAIN-MILD, (Reported) Montelukast Sodium 10 Mg Tablet, 10 MG PO HS, (Reported) Morphine Sulfate 30 Mg Tablet.er, 30 MG PO BID PRN for PAIN-SEVERE, (Reported) Multivits-Minerals/FA/Lycopene 1 Each Tablet, 1 EACH PO DAILY, (Reported) Omeprazole 20 Mg Capsule.dr, 20 MG PO DAILY, (Reported) TAKES MED BEFORE HE EATS Oxycodone HCl/Acetaminophen 1 Each Tablet, 1 TAB PO TID PRN for PAIN-MODERATE, (Reported) Rosuvastatin Calcium 20 Mg Tablet, 20 MG PO HS, (Reported) Sertraline HCl 100 Mg Tablet, 100 MG PO HS, (Reported) Temazepam 30 Mg Capsule, 30 MG PO HS, (Reported) Past Qoighem-Lnfidn-Qnemom Hx Past Med/Social Hx: Reviewed Nursing Past Med/Soc Hx Patient Social History Alcohol Use: Denies Use Recreational Drug Use: No Type Used: Smokeless Tobacco 2nd Hand Smoke Exposure: No Recent Foreign Travel: No Contact w/Someone Who Travel: No Recent Infectious Disease Expo: No Recent Hopitalizations: No Seasonal Allergies Seasonal Allergies: No Past Medical History Surgeries: Yes CABG, Coronary Stent Respiratory: Yes (Nocturnal Hypoxemia) Cardiac: Yes (Chronic ischemic heart disease) Coronary Artery Disease, Heart Attack, High Cholesterol, Hypertension Neurological: No Genitourinary: No Gastrointestinal: Yes Gastroesophageal Reflux, Hiatal Hernia Musculoskeletal: Yes (Carpal tunnel syndrome, Degenerative Arthritis) Arthritis Endocrine: Yes (Hypercalcemia) HEENT: No Cancer: No Psychosocial: No Integumentary: No Blood Disorders: No Adverse Reaction/Blood Tranf: No Family Medical History Reviewed Nursing Family Hx Review of Systems Time Seen by Provider: 14:06 Sepsis Event Evaluation Height, Weight, BMI Height: 5'4.00" Weight: 192lbs. 0.9oz. 87.797562xb; 34.00 BMI Method:Stated Exam Exam Vital Signs Date Time Temp Pulse Resp B/P (MAP) Pulse Ox O2 Delivery O2 Flow Rate FiO2 09/22/19 13:00 78 12 118/70 (86) 96 09/22/19 12:48 25 09/22/19 12:30 82 17 110/77 (88) 93 09/22/19 12:28 81 20 120/67 92 Nasal Cannula 2.00 09/22/19 09:50 38.0 89 18 124/73 (90) 94 Nasal Cannula 2.00 09/22/19 09:50 92 Nasal Cannula 2.00 Height & Weight Height: 5'4.00" Weight: 192lbs. 0.9oz. 87.984890sr; 34.00 BMI Method:Stated General Appearance: WD/WN, Mild Distress, Obese HEENT: PERRL/EOMI, Pharynx Normal Neck: Non Tender, Supple Respiratory: No Accessory Muscle Use, Crackles (along the right lateral aspect), Expiration, Inspiration Cardiovascular: Regular Rate, Rhythm, No Murmur Capillary Refill: Less Than 3 Seconds Gastrointestinal: non tender, soft Extremity: No Calf Tenderness, Pedal Edema (trace bilateral lower extremities), Other (decreased range of motion to the right arm secondary to pain which is chronic) Neurologic/Psychiatric: Alert, Oriented x3, No Motor/Sensory Deficits Skin: Normal Color, Warm/Dry Lymphatic: No Adenopathy Results Lab Laboratory Tests 09/22/19 10:07 Assessment/Plan Assessment/Plan Acute respiratory failure -COVID pending -Check Influenza -Check MRSA -Check urine strep, legionella Ag Pneumonia with sepsis -Marinelli cultures pending -Continue Cefepime [place] DO Sep 22, 2019 14:01
[2019-09-22] MEDS: CATHETER FLUSH 10 ML SYR IV SCH ×2 (14:35→20:55)
--- OUTSIDE RECORDS SUMMARY | 2019-09-22 15:05 | XMS REPORT | Continuity of Care Document ---
Author Organization Unknown Address Unknown Phone Unavailable Allergies Active Description Code Type Severity Reaction Onset Reported/Identified Relationship to Patient Clinical Status Yes niacin [id number] Drug Allergy Unknown N/A 12/06/2018 Yes No Known Drug Allergies [id number] Drug Allergy Unknown N/A 12/06/2018 Yes Penicillins [id number] Drug Aller gy Unknown N/A 12/06/2018 Medications There is no data. Problems Date Dx Coded Attending Type Code Diagnosis Diagnosed By 10/05/2018 KARTIK UREÑA DO, Ot I10 ESSENTIAL (PRIMARY) HYPERTENSION 10/05/2018 KARTIK UREÑA DO, Ot I25.10 ATHSCL HEART DISEASE OF [place] CORONARY 10/05/2018 KARTIK UREÑA DO, Ot J01.90 ACUTE SINUSITIS, UNSPECIFIED 10/05/2018 KARTIK UREÑA DO, Ot R09.81 NASAL CONGESTION 10/07/2018 KARTIK UREÑA DO, Ot I10 ESSENTIAL (PRIMARY) HYPERTENSION 10/07/2018 KARTIK UREÑA DO, Ot I25.10 ATHSCL HEART DISEASE OF [place] CORONARY 10/07/2018 KARTIK UREÑA DO, Ot J01.90 [...] MD Ot I25.10 ATHSCL HEART DISEASE OF [place] CORONARY 12/09/2018 YUMIKO KIM MD Ot J18 .1 LOBAR PNEUMONIA, UNSPECIFIED ORGANISM 12/09/2018 YMUIKO KIM MD Ot K21 .9 GASTRO-ESOPHAGEAL REFLUX [...] MD, Ot I25.10 ATHSCL HEART DISEASE OF [place] CORONARY 09/17/2019 Franck HERNANDEZ MD, Ot Z01.810 ENCOUNTER FOR PREPROCEDURAL CARDIOVASCUL 09/17/2019 Franck HERNANDEZ MD, Ot Z72 .0 TOBACCO USE Procedures There is no data. Results Test Result Range CMP - 09/03/18 15:25 GLUCOSE 116 mg/dL 65-139 UREA NITROGEN (BUN) 18 mg/dL 7-25 CREATININE 0.86 mg/dL 0.70-1.25 eGFR NON-AFR. FINNISH 91 mL/min/1.73m2 > OR = 60 eGFR [...] 140-400 MPV 10.9 fL 7.5-12.5 ABSOLUTE NEUTROPHILS 13905 cells/uL 1500 -7800 ABSOLUTE MONOCYTES 724 cells/uL [...] 12:57 Sputum Gram stain Mixed Bacterial Ernestina [facility] Bacterial sputum culture - 12/07/18 12:5 7 QUANTITY OF GROWTH . [facility] Bacterial sputum culture USUAL RESP [facility] ANEMIA ANALYZER - 12/09/18 05:10 Blood leukocytes automated count (number/volume) 8.1 10*3/uL 4.3-11.0 Blood erythrocytes automated count (number/volume) 3.35 10*6/uL 4.35-5.85 Venous blood hemoglobin measurement (mass/volume) 10.4 g/dL 13.3-17.7 Blood hematocrit (volume fraction) 34 % 40-54 Automated erythrocyte mean corpuscular volume 101 [[facility]] 80-99 Automated erythrocyte mean corpuscular h emoglobin (mass per erythrocyte) 31 pg 25-34 Automated erythrocyte mean corpuscular h emoglobin concentration measurement (mass/volume) 31 g/dL 32-36 Automated erythrocyte distribution width ratio 15. 6 % 10.0- 14.5 Automated blood platelet count (count/volume) 178 10*3/uL 130-400 Automated blood platelet mean volume measurement 11.0 [[facility]] 7.4-10.4 Automated blood neutrophils/100 leukocytes 65 % [...] Status Pt. Type Provider Facility Loc./Unit Complaint [id number] 04/17/2019 13:30:00 04/17/2019 23:59: 59 CLS Outpatient DANYA VILLALOBOS [facility] [id number] 09/05/2018 15:00:00 Document Registration [id number] 09/03/2018 14:15:00 Document Registration [id number] 09/18/2019 11:06:00 23:59:59 CLS Outpatient Franck HERNANDEZ MD [facility] CARD PREOP EXAM [id number] 09/15/2019 13:57:00 23:59:59 CLS Outpatient Franck HERNANDEZ MD [facility] CARD PREOP EXAM [id number] 04/07/2019 14:50:00 23:59:59 CLS Outpatient JATINDER FRANKLIN MD [facility] RAD FS J20.8 B96.89 [id number] 01/20/2019 11:14:00 23:59:59 CLS Outpatient ROXIE CAMPBELL MD [facility] RAD FS RADICULOPATHY [id number] 12/06/2018 15:45:00 12:20:00 DIS Inpatient YUMIKO KIM MD [facility] 4TH PNA,ACUTE RESP DISTRESS [id number] 11/13/2018 10:49:00 23:59:59 CLS Preadmit JATINDER FRANKLIN MD [facility] RAD RADICULAR SYNDROME OF R IGHT LEG [id number] 10/05/2018 22:12:00 22:57:00 DIS Emergency KATRIK UREÑA DO [facility] ER FS TROUBLE BREATHING [id number] 09/22/2019 11:57:[address] Inpatient STEVEN LAKE DO [facility] ICU BILAT PNA;COVID-19 PUI
[2019-09-22 16:14] LABS: BILIRUBIN,URINE NEGATIVE (NEGATIVE); CLARITY,URINE CLEAR; COLOR,URINE YELLOW; GLUCOSE, URINE (UA) NEGATIVE (NEGATIVE); KETONES,URINE NEGATIVE (NEGATIVE); LEUKOCYTE ESTERASE ,URINE NEGATIVE (NEGATIVE); NITRITE,URINE NEGATIVE (NEGATIVE); PROTEIN,URINE NEGATIVE (NEGATIVE)
[2019-09-22] MEDS ORDERED: NEBI5TAB8 PO (16:18)
--- NOTE | 2019-09-22 16:18 | NUR ---
SPOKE WITH THE PATIENTS , WENT THRU THE EXT MED HISTORY AND CALLED [facility] IN FS TO COMPLETE THE MED REC BYSTOLIC 5MG- DIRECTIONS FROM [facility] ARE 1 TAB DAILY HOWEVER THE PT IS TAKING TAB DAILY. LAST FILL DATE WAS 04-07-2019 #90/180DS ALL OTHER MEDICATIONS ARE ON THE EXT MED HISTORY OTC MEDS: [employer] ASPIRIN 325 TYLENOL IBUPROFEN
[2019-09-22 16:35] LABS: AMORPHOUS SEDIMENT,UR RARE AMOR URATES /LPF; BACTERIA,URINE NEGATIVE /HPF
[2019-09-22] MEDS: CEFEPIME 1,000 MG/SWFI 10 ML IV PUSH IV SCH ×2 (17:13)
[2019-09-22] MEDS: ENOXAPARIN 40 MG/0.4 ML (LOVENOX) SYR SC SCH (20:21)
[2019-09-22] MEDS: morphine ER 30 MG (MS CONTIN) TAB PO SCH (20:21)
[2019-09-23] VITALS (13 sets, daily range): BP systolic 90–181; BP diastolic 42–91
[2019-09-23] MEDS: CEFEPIME 1,000 MG/SWFI 10 ML IV PUSH IV SCH ×8 (02:17→17:49)
[2019-09-23 02:46] LABS: BASOPHILS % (AUTO) 0 % (0-10); EOSINOPHILS # (AUTO) 0.2 10^3/uL (0.0-0.3); EOSINOPHILS % (AUTO) 2 % (0-10); HEMATOCRIT 34 % (40-54); HEMOGLOBIN 10.8 G/DL (13.3-17.7); LYMPHOCYTES # (AUTO) 2.6 X 10^3 (1.0-4.0); LYMPHOCYTES % (AUTO) 18 % (12-44); MEAN CORPUSCULAR HEMOGLOBIN 32 PG (25-34); MEAN CORPUSCULAR HGB CONC 32 G/DL (32-36); MEAN CORPUSCULAR VOLUME 100 FL (80-99); MEAN PLATELET VOLUME 10.8 FL (7.4-10.4); MONOCYTES % (AUTO) 7 % (0-12); NEUTROPHILS # (AUTO) 10.5 X 10^3 (1.8-7.8); NEUTROPHILS % (AUTO) 74 % (42-75); PLATELET COUNT 162 10^3/uL (130-400); RED CELL DISTRIBUTION WIDTH 15.7 % (10.0-14.5); WHITE BLOOD COUNT 14.3 10^3/uL (4.3-11.0)
[2019-09-23 02:53] LABS: CHLORIDE 106 MMOL/L (98-107); POTASSIUM 4.1 MMOL/L (3.6-5.0)
[2019-09-23 02:54] LABS: SODIUM 143 MMOL/L (135-145)
[2019-09-23 02:55] LABS: CALCIUM 8.8 MG/DL (8.5-10.1); GLUCOSE 98 MG/DL (70-105)
[2019-09-23 02:57] LABS: CARBON DIOXIDE 25 MMOL/L (21-32)
[2019-09-23 02:59] LABS: CREATININE SERUM 0.89 MG/DL (0.60-1.30); GFR ESTIMATED > 60; PHOSPHORUS 2.8 MG/DL (2.3-4.7)
[2019-09-23 03:00] LABS: BUN/CREATININE RATIO 19
[2019-09-23 03:01] LABS: MAGNESIUM 1.7 MG/DL (1.6-2.4)
[2019-09-23] MEDS: LACTATED RINGERS 1,000 ML IV SCH ×4 (05:41→18:55)
[2019-09-23] MEDS: NOREPINEPHRINE 4 MG/250 ML 250 ML IV SCH (05:41)
[2019-09-23] MEDS: VASOPRESSIN INJECTION 20 UNIT in NORMAL SALINE 100 ML IV SCH (05:42)
[2019-09-23] MEDS: CATHETER FLUSH 10 ML SYR IV SCH ×3 (05:42→20:32)
--- NOTE | 2019-09-23 06:14 | Pulmonary Progress Note ---
Subjective Time Seen by a Provider: 06:11 Subjective/Events-last exam Pt appears to be doing better. Sepsis Event Evaluation Height, Weight, BMI Height: 5'4.00" Weight: 192lbs. 0.9oz. 87.542725bl; 34.56 BMI Method:Stated Focused Exam Lactate Level 09/22/19 14:15: Lactic Acid Level 2.19*H 09/22/19 17:10: Lactic Acid Level 2.02*H 09/22/19 20:20: Lactic Acid Level 1.49 Exam Exam Vital Signs Date Time Temp Pulse Resp B/P (MAP) Pulse Ox O2 Delivery O2 Flow Rate FiO2 09/23/19 05:00 67 15 113/66 (82) 93 Nasal Cannula 1.00 09/23/19 04:00 62 11 126/81 (96) 94 Nasal Cannula 1.00 09/23/19 04:00 96 Nasal Cannula 1.00 09/23/19 03:00 65 10 129/81 (97) 93 Nasal Cannula 1.00 09/23/19 02:00 76 132/83 (99) 94 Nasal Cannula 1.00 09/23/19 01:00 59 09/23/19 01:00 59 10 131/79 (96) 97 Nasal Cannula 1.00 09/23/19 00:00 96 Nasal Cannula 1.00 09/23/19 00:00 56 10 136/78 (97) Nasal Cannula 1.00 09/22/19 23:00 57 14 138/80 (99) Nasal Cannula 1.00 09/22/19 22:00 57 11 132/82 (99) Nasal Cannula 1.00 09/22/19 21:15 73 10 142/83 (102) Nasal Cannula 1.00 09/22/19 20:19 35.9 Nasal Cannula 1.00 09/22/19 20:00 97 Nasal Cannula 1.00 09/22/19 20:00 59 12 134/82 (99) 97 Nasal Cannula 3.00 09/22/19 19:00 60 10 140/83 (102) 97 Nasal Cannula 3.00 09/22/19 19:00 60 09/22/19 18:00 65 12 131/80 (97) 96 Nasal Cannula 3.00 09/22/19 17:00 64 10 124/78 (93) 97 Nasal Cannula 3.00 09/22/19 16:00 91 Nasal Cannula 3.00 09/22/19 16:00 71 10 130/83 (99) 91 Nasal Cannula 3.00 09/22/19 15:00 75 11 125/89 (101) 98 Nasal Cannula 3.00 09/22/19 14:01 96 Nasal Cannula 3.00 09/22/19 14:00 75 13 126/82 (97) 98 Nasal Cannula 3.00 09/22/19 13:00 78 12 118/70 (86) 96 09/22/19 13:00 36.5 09/22/19 12:48 25 09/22/19 12:30 82 17 110/77 (88) 93 09/22/19 12:28 81 20 120/67 92 Nasal Cannula 2.00 09/22/19 09:50 38.0 89 18 124/73 (90) 94 Nasal Cannula 2.00 09/22/19 09:50 92 Nasal Cannula 2.00 I & O 09/23/19 07:00 Intake Total 2650 ml Output Total 650 ml Balance 2000 ml Height & Weight Height: 5'4.00" Weight: 192lbs. 0.9oz. 87.391113gc; 34.56 BMI Method:Stated General Appearance: WD/WN, Mild Distress, Obese HEENT: PERRL/EOMI, Pharynx Normal Neck: Non Tender, Supple Respiratory: No Accessory Muscle Use, Crackles (along the right lateral aspect), Expiration, Inspiration Cardiovascular: Regular Rate, Rhythm, No Murmur Capillary Refill: Less Than 3 Seconds Gastrointestinal: non tender, soft Extremity: No Calf Tenderness, Pedal Edema (trace bilateral lower extremities), Other (decreased range of motion to the right arm secondary to pain which is chronic) Neurologic/Psychiatric: Alert, Oriented x3, No Motor/Sensory Deficits Skin: Normal Color, Warm/Dry Lymphatic: No Adenopathy Results Lab Laboratory Tests 09/22/19 10:07 09/23/19 02:15 Assessment/Plan Assessment/Plan Acute respiratory failure -COVID swab is pending -COVID Ab is neg -neg Influenza -MRSA- pending -Neg urine strep, legionella Ag Pneumonia with sepsis -Marinelli cultures pending -Continue Cefepime STEVEN LAKE DO Sep 23, 2019 06:14
[2019-09-23] MEDS: morphine ER 30 MG (MS CONTIN) TAB PO SCH ×2 (08:50→20:32)
--- NOTE | 2019-09-23 09:49 | NUR ---
Patient arrived in room at this time assisted by ICU staff. All patient needs met, I agree with previous RN's assessment. Will continue to monitor.
[2019-09-23 11:45] LABS: RSV PCR TEST Not Detected (Not Detected)
[2019-09-23] MEDS: ENOXAPARIN 40 MG/0.4 ML (LOVENOX) SYR SC SCH (20:32)
--- NOTE | 2019-09-23 22:27 | Progress Note ---
Subjective Subjective/Events-last exam Patient states that he is feeling better. States that he normally just uses oxygen at night. Has not been out of bed yet. Tolerating PO diet. Review of Systems Pulmonary: Dyspnea, Cough Cardiovascular: No: Chest Pain, Palpitations Gastrointestinal: No: Nausea, Vomiting, Abdominal Pain Genitourinary: No Dysuria; Frequency Neurological: Weakness, Incoordination Focused Exam Lactate Level 09/22/19 14:15: Lactic Acid Level 2.19*H 09/22/19 17:10: Lactic Acid Level 2.02*H 09/22/19 20:20: Lactic Acid Level 1.49 Objective Exam Last Set of Vital Signs Vital Signs Date Time Temp Pulse Resp B/P (MAP) Pulse Ox O2 Delivery O2 Flow Rate FiO2 09/23/19 16:00 36.1 68 20 181/88 (119) 97 Nasal Cannula 2.00 Capillary Refill : Less Than 3 Seconds I&O Intake and Output 09/23/19 00:00 Intake Total 2500 ml Output Total 650 ml Balance 1850 ml Intake Oral 500 ml IV Total 2000 ml Output Urine Total 650 ml # Voids 2 Daily Weight Change No General: Alert, Oriented X3, Cooperative, No Acute Distress HEENT: Mucous Memb Moist/[place] Lungs: Normal Air Movement, Other (basilar wheezing, normal work of breathing) Heart: Regular Rate, No Murmurs Abdomen: Normal Bowel Sounds, Soft, No Tenderness Extremities: Other (1+ pitting edema bilaterally) Neuro: Normal Speech, Sensation Intact, Cranial Nerves 3-12 NL Psych/Mental Status: Mental Status NL Results/Procedures Lab Laboratory Tests 09/23/19 02:15: White Blood Count 14.3H, Red Blood Count 3.43L, Hemoglobin 10.8L, Hematocrit 34L , Mean Corpuscular Volume 100H, Mean Corpuscular Hemoglobin 32, Mean Corpuscular Hemoglobin Concent 32, Red Cell Distribution Width 15.7H, Platelet Count 162, Mean Platelet Volume 10.8H, Neutrophils (%) (Auto) 74, Lymphocytes (%) (Auto) 18, Monocytes (%) (Auto) 7, Eosinophils (%) (Auto) 2, Basophils (%) (Auto) 0, Neutrophils # (Auto) 10.5H, Lymphocytes # (Auto) 2.6, Monocytes # (Auto) 1.0, Eosinophils # (Auto) 0.2, Basophils # (Auto) 0.0, Sodium Level 143, Potassium Level 4.1, Chloride Level 106, Carbon Dioxide Level 25, Anion Gap 12, Blood Urea Nitrogen 17, Creatinine 0.89, Estimat Glomerular Filtration Rate > 60, BUN/Creatinine Ratio 19, Glucose Level 98, Calcium Level 8.8, Phosphorus Level 2.8, Magnesium Level 1.7 Microbiology 09/22/19 Urine Culture - Final, Complete 3 or more isolates 09/22/19 Influenza Types A,B Antigen (ARLETH) - Final, Complete 09/22/19 Blood Culture - Preliminary, Resulted Probable Coag Negative Staph See Comments Assessment/Plan Assessment/Plan (1) Sepsis Status: Acute Assessment & Plan: - Continue IV antibiotics, Covid neg Qualifiers: Qualified Codes: A41.9 - Sepsis, unspecified organism (2) Acute on chronic respiratory failure with hypoxia Status: Acute Assessment & Plan: - Will continue to titrate oxygen as tolerated, encourage OOB and ambulation with nursing and PT (3) Bilateral pneumonia Status: Acute Qualifiers: Qualified Codes: J18.9 - Pneumonia, unspecified organism (4) HTN (hypertension) Status: Chronic Assessment & Plan: - Restart home meds Qualifiers: Qualified Codes: I10 - Essential (primary) hypertension (5) CAD (coronary artery disease) Status: Chronic Qualifiers: Qualified Codes: I25.10 - Atherosclerotic heart disease of [place] coronary artery without angina pectoris (6) DVT prophylaxis Status: Acute Assessment & Plan: - Lovenox Clinical Quality Measures DVT/VTE Risk/Contraindication: Risk Factor Score Per Nursin RFS Level Per Nursing on Admit: 4+=Very High DRAKE HANSEN MD Sep 23, 2019 22:27
[2019-09-24] MEDS: CEFEPIME 1,000 MG/SWFI 10 ML IV PUSH IV SCH ×2 (02:56)
[2019-09-24 05:55] LABS: BASOPHILS % (AUTO) 0 % (0-10); EOSINOPHILS # (AUTO) 0.3 10^3/uL (0.0-0.3); EOSINOPHILS % (AUTO) 4 % (0-10); HEMATOCRIT 33 % (40-54); HEMOGLOBIN 10.1 G/DL (13.3-17.7); LYMPHOCYTES # (AUTO) 1.7 X 10^3 (1.0-4.0); LYMPHOCYTES % (AUTO) 20 % (12-44); MEAN CORPUSCULAR HEMOGLOBIN 31 PG (25-34); MEAN CORPUSCULAR HGB CONC 31 G/DL (32-36); MEAN CORPUSCULAR VOLUME 100 FL (80-99); MEAN PLATELET VOLUME 10.5 FL (7.4-10.4); MONOCYTES # (AUTO) 0.7 X 10^3 (0.0-1.0); MONOCYTES % (AUTO) 8 % (0-12); NEUTROPHILS # (AUTO) 5.7 X 10^3 (1.8-7.8); NEUTROPHILS % (AUTO) 68 % (42-75); PLATELET COUNT 148 10^3/uL (130-400); RED CELL DISTRIBUTION WIDTH 15.4 % (10.0-14.5); WHITE BLOOD COUNT 8.4 10^3/uL (4.3-11.0)
[2019-09-24] MEDS: CATHETER FLUSH 10 ML SYR IV SCH ×2 (05:57→14:29)
[2019-09-24 06:24] LABS: CHLORIDE 106 MMOL/L (98-107); SODIUM 143 MMOL/L (135-145)
[2019-09-24 06:26] LABS: GLUCOSE 99 MG/DL (70-105)
[2019-09-24 06:27] LABS: CARBON DIOXIDE 26 MMOL/L (21-32)
[2019-09-24 06:29] LABS: PHOSPHORUS 3.6 MG/DL (2.3-4.7)
[2019-09-24 06:30] LABS: BUN/CREATININE RATIO 18; CREATININE SERUM 0.89 MG/DL (0.60-1.30); GFR ESTIMATED > 60
[2019-09-24 06:32] LABS: MAGNESIUM 1.8 MG/DL (1.6-2.4)
--- NOTE | 2019-09-24 06:52 | Pulmonary Progress Note ---
Subjective Date Seen by a Provider: Sep 24, 2019 Time Seen by a Provider: 06:51 Subjective/Events-last exam Pt appears to be doing better. Sepsis Event Evaluation Height, Weight, BMI Height: 5'4.00" Weight: 192lbs. 0.9oz. 87.361400pj; 34.56 BMI Method:Stated Focused Exam Lactate Level 09/22/19 14:15: Lactic Acid Level 2.19*H 09/22/19 17:10: Lactic Acid Level 2.02*H 09/22/19 20:20: Lactic Acid Level 1.49 Exam Exam Vital Signs Date Time Temp Pulse Resp B/P (MAP) Pulse Ox O2 Delivery O2 Flow Rate FiO2 09/23/19 23:37 36.5 60 19 145/84 (104) 97 Nasal Cannula 1.00 09/23/19 21:00 97 Nasal Cannula 2.00 09/23/19 20:00 36.8 70 18 176/84 (114) 97 Nasal Cannula 1.00 09/23/19 16:00 36.1 68 20 181/88 (119) 97 Nasal Cannula 2.00 09/23/19 11:40 36.7 68 20 154/74 (100) 93 Room Air 09/23/19 08:57 96 Nasal Cannula 1.00 09/23/19 08:00 60 13 90/42 (58) 95 Nasal Cannula 1.00 09/23/19 07:00 59 12 118/91 (100) 95 Nasal Cannula 1.00 09/23/19 07:00 62 I & O 09/24/19 07:00 Intake Total 1445 ml Balance 1445 ml Height & Weight Height: 5'4.00" Weight: 192lbs. 0.9oz. 87.542486mc; 34.56 BMI Method:Stated General Appearance: WD/WN, Mild Distress, Obese HEENT: PERRL/EOMI, Pharynx Normal Neck: Non Tender, Supple Respiratory: No Accessory Muscle Use, Crackles (along the right lateral aspect), Expiration, Inspiration Cardiovascular: Regular Rate, Rhythm, No Murmur Capillary Refill: Less Than 3 Seconds Gastrointestinal: non tender, soft Extremity: No Calf Tenderness, Pedal Edema (trace bilateral lower extremities), Other (decreased range of motion to the right arm secondary to pain which is chronic) Neurologic/Psychiatric: Alert, Oriented x3, No Motor/Sensory Deficits Skin: Normal Color, Warm/Dry Lymphatic: No Adenopathy Results Lab Laboratory Tests 09/22/19 10:07 09/23/19 02:15 09/24/19 05:40 Assessment/Plan Assessment/Plan Acute respiratory failure -improving -Check CXR -COVID is negative -COVID Ab is neg -neg Influenza -MRSA- pending -Neg urine strep, legionella Ag Pneumonia with sepsis -Marinelli cultures pending -Continue Cefepime STEVEN LAKE DO Sep 24, 2019 06:52
[2019-09-24 08:00] VITALS: BP 166/70
[2019-09-24] MEDS: CEFEPIME INJECTION 1,000 MG in WATER (STERILE) FOR INJECTION 10 ML IV SCH ×2 (08:13→12:31)
[2019-09-24] MEDS: LACTATED RINGERS 1,000 ML IV SCH (08:13)
[2019-09-24] MEDS: morphine ER 30 MG (MS CONTIN) TAB PO SCH (08:14)
--- NOTE | 2019-09-24 08:29 | Physician Query Clarification ---
PQ-Further Specificity Admission/Discharge Admission Date: Sep 22, 2019 at 11:57 Discharge Date: The medical record reflects the following clinical scenario: History/Risk Factors: Sepsis Pneumonia Acute on chronic respiratory failure with hypoxia. Clinical Findings: On admission: Lactic acid 2.32. 02 sats on room air 86%. Treatment:IV Cefepime HCI, 02 Nasal cannula 3L. Question: Can you further specify Sepsis per the clinical indicators above? Please document a response in the Progress Notes or Discharge Summary. 1. Sepsis with severe sepsis. 2. Sepsis, (no severe sepsis). 3. Other, with explanation of the clinical findings. 4. Clinically undetermined, no explanation for the clinical findings. PHYSICIAN RESPONSE Can you specify per above: 2 Please remember a lack of response to the above will prompt a phone page by CDI/Coding staff. In responding to this query, please exercise your independent professional judgment. The purpose of this communication is to more accurately reflect the complexity of your patients condition. The fact that a question is asked does not imply that any particular answer is desired or expected. Thank you for your timely response to this clarification. Requestors name: Kenna Cortez [facility] Phone # ext [phone] or [phone] THIS PHYSICIAN QUERY FORM IS A PERMANENT PART OF THE MEDICAL RECORD KENNA CORTEZ Sep 24, 2019 08:29 DRAKE HANSEN MD Sep 24, 2019 23:14
[2019-09-24] MEDS ORDERED: ASPIRIN E.C. 325 MG (ECOTRIN) TABLET PO SCH (09:00)
[2019-09-24] MEDS ORDERED: NEBIVOLOL 5 MG TAB (NON-FORMULARY) PO SCH (09:00)
[2019-09-24] MEDS ORDERED: ALLOPURINOL 300 MG (ZYLOPRIM) TAB PO SCH (09:00)
[2019-09-24] MEDS ORDERED: CARVEDILOL 12.5 MG (COREG) TABLET PO SCH (09:00)
--- NOTE | 2019-09-24 10:17 | Diagnostic Imaging Report ---
INDICATION: Shortness of breath. TIME OF EXAM: 10:04 AM. COMPARISON: 09/22/2019. FINDINGS: Changes of median sternotomy and CABG are noted. The heart size is stable. Patchy airspace infiltrates, particularly in the right lung, persist but do appear to be somewhat improved. No new infiltrate is seen. There is no effusion. There is no pneumothorax. IMPRESSION: Slight improvement in the patchy airspace infiltrates in the right lung when compared with the examination of 2 days earlier. Dictated by: Dictated on workstation # [id number]
--- NOTE | 2019-09-24 10:35 | NUR ---
DISCHARGE PLANNING: placed order for O2 qualification study. Patient already has order for O2 at night, but needs study to see if he now needs in the day. Notified RT. Addendum: 09/24/19 at 1214 by ANNA GONZALES RN No RT study done as of yet. He, however, is sitting in chair without his O2 on so this RN checked it. He is registering at 96% initially on RA and then when talking he dropped to 93%.
--- NOTE | 2019-09-24 11:32 | Discharge Summary ---
Diagnosis/Chief Complaint Date of Admission Sep 22, 2019 at 11:57 Date of Discharge Discharge Diagnosis Problems/Diagnosis: (1) Sepsis Assessment & Plan: - Continue IV antibiotics, Covid neg Qualifiers: Qualified Codes: A41.9 - Sepsis, unspecified organism Status: Acute (2) Acute on chronic respiratory failure with hypoxia Assessment & Plan: - Will continue to titrate oxygen as tolerated, encourage OOB and ambulation with nursing and PT Status: Acute (3) Bilateral pneumonia Qualifiers: Qualified Codes: J18.9 - Pneumonia, unspecified organism Status: Acute (4) HTN (hypertension) Assessment & Plan: - Restart home meds Qualifiers: Qualified Codes: I10 - Essential (primary) hypertension Status: Chronic (5) CAD (coronary artery disease) Qualifiers: Qualified Codes: I25.10 - Atherosclerotic heart disease of [place] coronary artery without angina pectoris Status: Chronic (6) DVT prophylaxis Assessment & Plan: - Lovenox Status: Acute Discharge Summary-Simple/Stand Discharge Physical Examination Allergies: Coded Allergies: Penicillins (Verified Allergy, Unknown, Pt has rec Rocephin in the past w/o issue, 09/22/19) niacin (Verified Allergy, Unknown, 12/06/18) Vitals & I&Os Vital Sign - Last 12Hours Date Time Temp Pulse Resp B/P (MAP) Pulse Ox O2 Delivery O2 Flow Rate FiO2 09/24/19 09:00 94 Nasal Cannula 2.00 09/24/19 08:00 36.0 59 16 166/70 (102) Intake and Output 09/24/19 00:00 Intake Total 1070 ml Balance 1070 ml Hospital Course See final discharge diagnosis. Discharge Instructions to patient/family Please see electronic discharge instructions given to patient. Discharge Medications Reviewed and agree with Discharge Medication list on patient's Discharge Instruction sheet Clinical Quality Measures DVT/VTE Risk/Contraindication: Risk Factor Score Per Nursin RFS Level Per Nursing on Admit: 4+=Very High DRAKE HANSEN MD Sep 24, 2019 11:32
[2019-09-24] MEDS ORDERED: CEFD300C3 PO (11:34)
[2019-09-24] MEDS ORDERED: CARV12.53 PO (11:34)
--- NOTE | 2019-09-24 11:35 | Discharge Summary ---
Discharge [facility] Reconcile Patient Problems Problems Reviewed?: Yes Discharge Medications New, Converted or Re-Newed RX: Transmitted to Pharmacy New Medications: Cefdinir (Cefdinir) 300 Mg Capsule 300 MG PO BID, #14 CAP Carvedilol (Carvedilol) 12.5 Mg Tablet 12.5 MG PO BID, #60 TAB Continued Medications: Acetaminophen (Acetaminophen) 500 Mg Tablet 1000 MG PO HS PRN for PAIN-MILD, TAB Allopurinol (Allopurinol) 300 Mg Tablet 300 MG PO DAILY Aspirin (Aspirin EC) 325 Mg Tablet.dr 325 MG PO DAILY, TAB Clopidogrel Bisulfate (Clopidogrel) 75 Mg Tablet 75 MG PO DAILY Fluticasone Propionate (Flonase Allergy Relief) 9.9 Ml [place].susp 1 SPRAY NSEACH DAILY PRN for CONGESTION, EACH Ibuprofen (Ibuprofen) 200 Mg Tablet 600-800 MG PO Q8H PRN for PAIN-MILD, TAB Montelukast Sodium (Montelukast Sodium) 10 Mg Tablet 10 MG PO HS Morphine Sulfate (Morphine Sulfate ER) 30 Mg Tablet.er 30 MG PO BID PRN for PAIN-SEVERE Multivits-Minerals/FA/Lycopene (One Daily For Men Tablet) 1 Each Tablet 1 EACH PO DAILY, TAB Omeprazole (Omeprazole) 20 Mg Capsule.dr 20 MG PO DAILY TAKES MED BEFORE HE EATS Oxycodone HCl/Acetaminophen (Oxycodone-Acetaminophen 10-325) 1 Each Tablet 1 TAB PO TID PRN for PAIN-MODERATE Rosuvastatin Calcium (Rosuvastatin Calcium) 20 Mg Tablet 20 MG PO HS Sertraline HCl (Sertraline HCl) 100 Mg Tablet 150 MG PO HS, TAB TAKES 1 & (100MG) TABS Temazepam (Temazepam) 30 Mg Capsule 30 MG PO HS Discontinued Medications: Nebivolol HCl (Bystolic) 5 Mg Tablet 2.5 MG PO DAILY, TAB TAKES OF A 5MG TAB Patient Instructions Goal/Follow Up Appt: You will be called with a hospital f.u appt Patient Instructions: - Make sure you complete all your antibiotics Activity & Diet Discharge Diet: Cardiac Diet Activity as Tolerated: Yes Orders-Post D/C & Referrals Pneu Vac Indicated: Yes DRAKE HANSEN MD Sep 24, 2019 11:35
[2019-09-24 12:00] VITALS: BP 144/80
[2019-09-24] MEDS ORDERED: MONTELUKAST 10 MG (SINGULAIR) TAB PO SCH (21:00)
[2019-09-24] MEDS ORDERED: ROSUVASTATIN 20 MG (CRESTOR) TABLET PO SCH (21:00)
== END 2019-09-24 15:00 | disposition home or self-care (01) | DRG 871 ==
LOC: EDUNIT# 09:17 → ER 09:24 → ICU 11:57 → 4TH 09-23 10:01
PROVIDERS: ADMIT Internal Medicine Critical Care Medicine; ATTEND Family Medicine
DX: A41.9 Sepsis, unspecified organism (principal); J18.9 Pneumonia, unspecified organism; J96.21 Acute and chronic respiratory failure with hypoxia; I25.10 Atherosclerotic heart disease of native coronary artery without angina pectoris; I10 Essential (primary) hypertension; K59.00 Constipation, unspecified; F17.220 Nicotine dependence, chewing tobacco, uncomplicated; I25.2 Old myocardial infarction; E78.00 Pure hypercholesterolemia, unspecified; G47.34 Idiopathic sleep related nonobstructive alveolar hypoventilation; E66.9 Obesity, unspecified; K21.9 Gastro-esophageal reflux disease without esophagitis; K44.9 Diaphragmatic hernia without obstruction or gangrene; M19.91 Primary osteoarthritis, unspecified site; M48.02 Spinal stenosis, cervical region; Z95.5 Presence of coronary angioplasty implant and graft; Z95.1 Presence of aortocoronary bypass graft; Z68.34 Body mass index [BMI] 34.0-34.9, adult; Z20.828 Contact with and (suspected) exposure to other viral communicable diseases
CPT/HCPCS: 36415; 71045; 80048; 80053; 81000; 83605; 83615; 83735; 83880; 84100; 84145; 85007; 85025; 85027; 85379; 85610; 85652; 85730; 86141; 86769; 87040; 87077; 87081; 87088; 87449; 87631; 87635; 87804; 87899; 96361; 96374

== ENCOUNTER 2019-10-04 11:43 | Inpatient (IN) | payer MEDICARE ==
[~2019-10-04] VITALS: Ht 162.5 cm; Wt 87.8 kg
[2019-10-04] VITALS (9 sets, daily range): BP systolic 101–126; BP diastolic 62–77
[~2019-10-04 11:43] MED LIST changes: +CARV12.53 PO; +NEBI5TAB8 PO
--- OUTSIDE RECORDS SUMMARY | 2019-10-04 11:49 | XMS REPORT | Continuity of Care Document ---
Author Organization Unknown Address Unknown Phone Unavailable Allergies Active Description Code Type Severity Reaction Onset Reported/Identified Relationship to Patient Clinical Status Yes niacin [id number] Drug Allergy Unknown N/A 12/06/2018 Yes No Known Drug Allergies [id number] Drug Allergy Unknown N/A 12/06/2018 Yes Penicillins [id number] Drug Aller gy Unknown N/A 12/06/2018 Yes Penicillins [id number] Drug Aller gy Unknown Pt has rec Roce 09/22/2019 Medications There is no data. Problems Date Dx Coded Attending Type Code Diagnosis Diagnosed By 10/05/2018 KARTIK UREÑA DO, Ot I10 ESSENTIAL (PRIMARY) HYPERTENSION 10/05/2018 KARTIK UREÑA DO, Ot I25.10 ATHSCL HEART DISEASE OF [place] CORONARY 10/05/2018 KARTIK UREÑA DO, Ot J01.90 ACUTE SINUSITIS, UNSPECIFIED 10/05/2018 KARTIK UREÑA DO, Ot R09.81 NASAL CONGESTION 10/07/2018 KARTIK UREÑA DO, Ot I10 ESSENTIAL (PRIMARY) HYPERTENSION 10/07/2018 KARTIK UREÑA DO, Ot I25.10 ATHSCL HEART DISEASE OF [place] CORONARY 10/07/2018 KARTIK UREÑA DO, Ot J01.90 ACUTE SINUSITIS, UNSPECIFIED 10/07/2018 KARTIK UREÑA DO, Ot R09.81 NASAL CONGESTION 12/09/2018 JULIO RODRIGUEZ, YUMIKO Bautista Ot A41 .9 SEPSIS, UNSPECIFIED ORGANISM 12/09/2018 YUMIKO KIM MD Ot D53 .9 NUTRITIONAL ANEMIA, UNSPECIFIED 12/09/2018 YUMIKO KIM MD Ot E78.00 PURE HYPERCHOLESTEROLEMIA, UNSPECIFIED 12/09/2018 YUMIKO KIM MD Ot F17.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, CHEWING TOBACCO, UN 12/09/2018 YUMIKO KIM MD Ot I10 ESSENTIAL (PRIMARY) HYPERTENSION 12/09/2018 YUMIKO KIM MD Ot I25.10 ATHSCL HEART DISEASE OF [place] CORONARY 12/09/2018 YUMIKO KIM MD Ot J18 [...] DEPENDENCE ON SUPPLEMENTAL OXYGEN 02/06/2019 ROXIE CAMPBELL MD Ot M47.26 OTHER SPONDYLOSIS [...] BACTERIAL AGENTS THE CAUSE OF DIS 09/11/2019 SELF MD, JATINDER Ot J20.8 ACUTE BRONCHITIS DUE TO OTHER SPECIFIED 09/11/2019 RIGOBERTO RODRIGUEZ, JATINDER Ot Z98.89 0 OTHER SPECIFIED POSTPROCEDURAL STATES 09/17/2019 DAVID RODRIGUEZ, Franck VELASQUEZ Ot E78.01 FAMILIAL HYPERCHOLESTEROLEMIA 09/17/2019 Franck HERNANDEZ MD Ot I10 ESSENTIAL (PRIMARY) HYPERTENSION 09/17/2019 Franck HERNANDEZ MD Ot I25.10 ATHSCL HEART DISEASE OF [place] CORONARY 09/17/2019 DAVID RODRIGUEZ, Franck VELASQUEZ Ot Z01.810 ENCOUNTER FOR PREPROCEDURAL CARDIOVASCUL 09/17/2019 Franck HERNANDEZ MD Ot Z72 .0 TOBACCO USE 09/24/2019 DRAKE HANSEN MD Ot A41.9 SEPSIS, UNSPECIFIED ORGANISM 09/24/2019 DRAKE HANSEN MD Ot E66.9 OBESITY, UNSPECIFIED 09/24/2019 DRAKE HANSEN MD Ot E78.0 0 PURE HYPERCHOLESTEROLEMIA, UNSPECIFIED 09/24/2019 DRAKE HANSEN MD Ot F17.2 20 NICOTINE DEPENDENCE, CHEWING TOBACCO, UN 09/24/2019 DRAKE HANSEN MD Ot 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 09/24/2019 DRAKE HANSEN MD Ot I10 ESSENTIAL (PRIMARY) HYPERTENSION 09/24/2019 DRAKE HANSEN MD Ot I25.1 0 ATHSCL HEART DISEASE OF [place] CORONARY 09/24/2019 DRAKE HANSEN MD Ot I25.2 OLD MYOCARDIAL INFARCTION 09/24/2019 DRAKE HANSEN MD R Ot J18.9 PNEUMONIA, UNSPECIFIED ORGANISM 09/24/2019 DRAKE HANSEN MD R Ot J96.2 1 ACUTE AND CHRONIC RESPIRATORY FAILURE [place] 09/24/2019 DRAKE HANSEN MD Ot K21.9 GASTRO-ESOPHAGEAL REFLUX DISEASE WITHOUT 09/24/2019 DRAKE HANSEN MD Ot K44.9 DIAPHRAGMATIC HERNIA WITHOUT OBSTRUCTION 09/24/2019 DRAKE HANSEN MD Ot K59.0 0 CONSTIPATION, UNSPECIFIED 09/24/2019 DRAKE HANSEN MD Ot M19.9 1 PRIMARY OSTEOARTHRITIS, UNSPECIFIED SITE 09/24/2019 DRAKE HANSEN MD Ot M48.0 2 SPINAL STENOSIS, CERVICAL REGION 09/24/2019 DRAKE HANSEN MD, Ot Z20.8 28 CONTACT W AND EXPOSURE TO OTH VIRAL COMM 09/24/2019 DRAKE HANSEN MD, Ot Z68.3 4 BODY MASS INDEX (BMI) 34.0-34.9, ADULT 09/24/2019 DRAKE HANSEN MD, Ot Z95.1 PRESENCE OF AORTOCORONARY BYPASS GRAFT 09/24/2019 DRAKE HANSEN MD, Ot Z95.5 PRESENCE OF CORONARY ANGIOPLASTY IMPLANT Procedures There is no data. Results Test Result Range CMP - 09/03/18 15:25 GLUCOSE 116 mg/dL 65-139 UREA NITROGEN (BUN) 18 mg/dL 7-25 CREATININE 0.86 mg/dL 0.70-1.25 eGFR NON-AFR. [place] 91 mL/min/1.73m2 > OR = 60 eGFR [...] 140-400 MPV 10.9 fL 7.5-12.5 ABSOLUTE NEUTROPHILS 81549 cells/uL 1500 -7800 ABSOLUTE MONOCYTES 724 cells/uL [...] Sputum Gram stain Mixed Bacterial Ernestina [facility] Bacterial sputum culture - 12/07/18 12:5 7 QUANTITY OF GROWTH . [facility] Bacterial sputum culture USUAL RESP [facility] ANEMIA ANALYZER - 12/09/18 05:10 [...] Automated blood platelet mean volume measurement 11.0 [foz_us] 7.4-10.4 Automated blood neutrophils/100 leukocytes 65 % [...] 05:10 VITAMIN B 12 626 pg/mL 190-1100 Complete blood count (CBC) with automate d white blood cell (WBC) differential - 09/22/19 10:07 Blood leukocytes automated count (number/volume) 14.2 10*3/uL 4.3-11.0 Blood erythrocytes automated count (number/volume) 3.95 10*6/uL 4.35-5.85 Venous blood hemoglobin measurement (mass/volume) 12.2 g/dL 13.3-17.7 Blood hematocrit (volume fraction) 39 % 40-54 Automated erythrocyte mean corpuscular volume 99 [ foz_us] 80-99 Automated erythrocyte mean corpuscular h emoglobin (mass per erythrocyte) 31 pg 25-34 Automated erythrocyte mean corpuscular h emoglobin concentration measurement (mass/volume) 31 g/dL 32-36 Automated erythrocyte distribution width ratio 15. 8 % 10.0- 14.5 Automated blood platelet count (count/volume) 155 10*3/uL 130-400 Automated blood platelet mean volume measurement 10.5 [foz_us] 7.4-10.4 Automated blood neutrophils/100 leukocytes 85 % 42-75 Automated blood lymphocytes/100 leukocytes 5 % 12-44 Blood monocytes/100 leukocytes 9 % 0-12 Automated blood eosinophils/100 leukocytes 0 % 0-10 Automated blood basophils/100 leukocytes 0 % 0-10 Blood neutrophils automated count (number/volume) 12.0 10*3 1.8-7.8 Blood lymphocytes automated count (number/volume) 0.8 10*3 1.0-4.0 Blood monocytes automated count (number/volume) 1. 3 10*3 0.0-1.0 Automated eosinophil count 0.0 10*3/uL 0 .0-0.3 Automated blood basophil count (count/volume) 0.0 10*3/uL 0.0-0.1 Comprehensive metabolic panel - 09/22/19 10:07 Serum or plasma sodium measurement (moles/volume) 140 mmol/L 135-145 Serum or plasma potassium measurement (moles/volume) 4.0 mmol/L 3.6-5.0 Serum or plasma chloride measurement (moles/volume) 103 mmol/L 98-107 Carbon dioxide 24 mmol/L 21-32 Serum or plasma anion gap determination (moles/volume) 13 mmol/L 5-14 Serum or plasma urea nitrogen measurement (mass/volume ) 22 mg/dL 7-18 Serum or plasma creatinine measurement (mass/volume) 1.14 mg/dL 0.60-1.30 Serum or plasma urea nitrogen/creatinine mass ratio 19 NRG Serum or plasma creatinine measurement w ith calculation of estimated glomerular filtration rate > NRG Serum or plasma glucose measurement (mass/volume) 151 mg/dL 70-105 Serum or plasma calcium measurement (mass/volume) 9.1 mg/dL 8.5-10.1 Serum or plasma total bilirubin measurement (mass/volu me) 0.5 mg/dL 0.1-1.0 Serum or plasma alkaline phosphatase дмитрий surement (enzymatic activity/volume) 58 U/L 40-136 Serum or plasma aspartate aminotransfera se measurement (enzymatic activity/volume) 22 U/L 5-34 Serum or plasma alanine aminotransferase measurement (enzymatic activity/volume) 28 U/L 0-55 Serum or plasma protein measurement (mass/volume) 7.9 g/dL 6.4-8.2 Serum or plasma albumin measurement (mass/volume) 4.2 g/dL 3.2-4.5 CALCIUM CORRECTED 8.9 mg/dL 8.5-10.1 Serum ragweed IgE antibody assay - 09/21 10:07 Serum ragweed IgE antibody assay 215 U/L 125-220 PROCALCITONIN (PCT) - 09/22/19 10:07 PROCALCITONIN (PCT) 2.02 ng/mL <0.10 Blood lactic acid measurement (moles/vol ume) - 09/22/19 10:07 Blood lactic acid measurement (moles/volume) 2.32 mmol/L 0.50-2.00 PT panel in platelet poor plasma by coag ulation assay - 09/22/19 10:07 Prothrombin time (PT) in platelet poor plasma by coagu lation assay 13.8 s 12.2-14.7 INR in platelet poor plasma or blood by coagulation as say 1.0 0.8-1.4 Activated partial thromboplastin time (a PTT) in platelet poor plasma bycoagulation assay - 09/22/19 10:07 Activated partial thromboplastin time (a PTT) in platelet poor plasma bycoagulation assay 32 s 24-35 Fibrin D-dimer FEU measurement in platel et poor plasma (mass/volume) - 09/22/19 10:07 Fibrin D-dimer FEU measurement in platelet poor plasma (mass/volume) 1.74 ug/mL 0.00-0.49 Manual absolute plasma cell count - 12/03 10:07 Blood monocytes/100 leukocytes 9 % NRG Manual blood segmented neutrophils/100 leukocytes 75 % NRG Blood band neutrophils/100 leukocytes 8 % NRG Manual blood lymphocytes/100 leukocytes 8 % NRG Manual eosinophils/100 leukocytes in nose 0 % NRG Manual blood basophils/100 leukocytes 0 % NRG Blood anisocytosis detection by light microscopy S LIGHT NRG Erythrocyte sedimentation rate by mansoor gren method - 09/22/19 10:07 Erythrocyte sedimentation rate by westergren method 43 mm 0- 30 Serum or plasma lithium measurement (mol es/volume) - 09/22/19 10:07 BNP PT 101.3 pg/mL <100.0 Serum or plasma C reactive protein measu rement (mass/volume) - 09/22/19 10:07 Serum or plasma C reactive protein measurement (mass/v olume) 6.55 mg/dL 0.00-0.50 Bacterial blood culture - 09/22/19 10:07 Bacterial blood culture NG NRG Coronavirus SARS-CoV-2 SO 2018 - 0 10:13 Coronavirus Ab [Units/volume] in Serum Negative Negative Bacterial blood culture - 09/22/19 11:05 FREE TEXT EXTERNAL SEE COMMENT NRG QUANTITY OF GROWTH Isolated NRG Bacterial blood culture [id number] NRG SUSCEPTIBILITY NO SUSCEPTIBILITY PERFORMED NRG MRSA SCREEN PLEASE NOTIFY MICROBIOLOGY AT EXT 141 NRG RAPID ID PRELIM RAPID ID TEST AT [facility] 09/22 17:24 NRG MRSA CONFIRMATION IF DR REQUESTED SUSCEPTIBILITY T ESTING NRG ID CONFIRMATION RML REPORTED ID 09/23 12:05 NRG COVID-19 IgG Only SO - 09/22/19 11:40 Coronavirus Ab [Units/volume] in Serum Negative Negative Influenza virus A and B antigen detectio n - 09/22/19 14:15 FLU RESULT NEGATIVE FOR INFLUENZA A AND B ANTIGENS BY IA NRG Serum or plasma lactate measurement (mol es/volume) - 09/22/19 14:15 Serum or plasma lactate measurement (moles/volume) 2.19 mmol/L 0.50-2.00 Methicillin resistant Staphylococcus aur eus (MRSA) screening culture - 09/22/19 14:15 Methicillin resistant Staphylococcus aureus (MRSA) scr eening culture NEG NRG Complete urinalysis with reflex to cultu re - 09/22/19 16:00 Urine color determination YELLOW NRG Urine clarity determination CLEAR NR G Urine pH measurement by test strip 6.0 5-9 Specific gravity of urine by test strip <= 1.016-1.022 Urine protein assay by test strip, semi-quantitative NEGATIVE NEGATIVE Urine glucose detection by automated test strip NE GATIVE NEGATIVE Erythrocytes detection in urine sediment by light micr oscopy 1+ NEGATIVE Urine ketones detection by automated test strip NE GATIVE NEGATIVE Urine nitrite detection by test strip NEGATIVE NEGATIVE Urine total bilirubin detection by test strip NEGA TIVE NEGATIVE Urine urobilinogen measurement by automated test strip (mass/volume) 0.2 mg/dL < = 1.0 Urine leukocyte esterase detection by dipstick NEG ATIVE NEGATIVE Automated urine sediment erythrocyte cou nt by microscopy (number/high power field) [HPF] NRG Automated urine sediment leukocyte count by microscopy (number/high power field) NONE NRG Bacteria detection in urine sediment by light microsco py NEGATIVE NRG Crystals detection in urine sediment by light microsco py PRESENT NRG Casts detection in urine sediment by light microscopy NONE NRG Mucus detection in urine sediment by light microscopy NEGATIVE NRG Complete urinalysis with reflex to culture CULTURE PENDING NRG Amorphous sediment detection in urine sediment by ligh t microscopy RARE RITA URATES NRG Streptococcus pneumoniae antigen detecti on - 09/22/19 16:00 Streptococcus pneumoniae antigen detection Negativ e NRG Urine Legionella pneumophila antigen ass ay - 09/22/19 16:00 Urine Legionella pneumophila antigen assay Negativ e NRG Streptococcus pneumoniae antigen detecti on - 09/22/19 16:00 Streptococcus pneumoniae antigen detection Negativ e NRG Bacterial urine culture - 09/22/19 16:00 Bacterial urine culture 3 OR MORE NRG COLONY COUNT <10,000 NRG SUSCEPTIBILITY (GRAM POSITIVE) SUGGESTING PROBABLE NRG MRSA SCREEN COLLECTION CONTAMINATION WITH SKIN SERGO RA NRG RAPID ID NO SUSCEPTIIBLITY PERFORMED N RG Serum or plasma lactate measurement (mol es/volume) - 09/22/19 17:10 Serum or plasma lactate measurement (moles/volume) 2.02 mmol/L 0.50-2.00 Serum or plasma lactate measurement (mol es/volume) - 09/22/19 20:20 Serum or plasma lactate measurement (moles/volume) 1.49 mmol/L 0.50-2.00 Complete blood count (CBC) with automate d white blood cell (WBC) differential - 09/23/19 02:15 Blood leukocytes automated count (number/volume) 14.3 10*3/uL 4.3-11.0 Blood erythrocytes automated count (number/volume) 3.43 10*6/uL 4.35-5.85 Venous blood hemoglobin measurement (mass/volume) 10.8 g/dL 13.3-17.7 Blood hematocrit (volume fraction) 34 % 40-54 Automated erythrocyte mean corpuscular volume 100 [foz_us] 80-99 Automated erythrocyte mean corpuscular h emoglobin (mass per erythrocyte) 32 pg 25-34 Automated erythrocyte mean corpuscular h emoglobin concentration measurement (mass/volume) 32 g/dL 32-36 Automated erythrocyte distribution width ratio 15. 7 % 10.0- 14.5 Automated blood platelet count (count/volume) 162 10*3/uL 130-400 Automated blood platelet mean volume measurement 10.8 [foz_us] 7.4-10.4 Automated blood neutrophils/100 leukocytes 74 % 42-75 Automated blood lymphocytes/100 leukocytes 18 % 12-44 Blood monocytes/100 leukocytes 7 % 0-12 Automated blood eosinophils/100 leukocytes 2 % 0-10 Automated blood basophils/100 leukocytes 0 % 0-10 Blood neutrophils automated count (number/volume) 10.5 10*3 1.8-7.8 Blood lymphocytes automated count (number/volume) 2.6 10*3 1.0-4.0 Blood monocytes automated count (number/volume) 1. 0 10*3 0.0-1.0 Automated eosinophil count 0.2 10*3/uL 0 .0-0.3 Automated blood basophil count (count/volume) 0.0 10*3/uL 0.0-0.1 Whole blood basic metabolic panel - 01/03 02:15 Serum or plasma sodium measurement (moles/volume) 143 mmol/L 135-145 Serum or plasma potassium measurement (moles/volume) 4.1 mmol/L 3.6-5.0 Serum or plasma chloride measurement (moles/volume) 106 mmol/L 98-107 Carbon dioxide 25 mmol/L 21-32 Serum or plasma anion gap determination (moles/volume) 12 mmol/L 5-14 Serum or plasma urea nitrogen measurement (mass/volume ) 17 mg/dL 7-18 Serum or plasma creatinine measurement (mass/volume) 0.89 mg/dL 0.60-1.30 Serum or plasma urea nitrogen/creatinine mass ratio 19 NRG Serum or plasma creatinine measurement w ith calculation of estimated glomerular filtration rate > NRG Serum or plasma glucose measurement (mass/volume) 98 mg/dL 70-105 Serum or plasma calcium measurement (mass/volume) 8.8 mg/dL 8.5-10.1 Serum or plasma phosphate measurement (m ass/volume) - 09/23/19 02:15 Serum or plasma phosphate measurement (mass/volume) 2.8 mg/dL 2.3-4.7 Magnesium - 09/23/19 02:15 Magnesium 1.7 mg/dL 1.6-2.4 Complete blood count (CBC) with automate d white blood cell (WBC) differential - 09/24/19 05:40 Blood leukocytes automated count (number/volume) 8.4 10*3/uL 4.3-11.0 Blood erythrocytes automated count (number/volume) 3.27 10*6/uL 4.35-5.85 Venous blood hemoglobin measurement (mass/volume) 10.1 g/dL 13.3-17.7 Blood hematocrit (volume fraction) 33 % 40-54 Automated erythrocyte mean corpuscular volume 100 [foz_us] 80-99 Automated erythrocyte mean corpuscular h emoglobin (mass per erythrocyte) 31 pg 25-34 Automated erythrocyte mean corpuscular h emoglobin concentration measurement (mass/volume) 31 g/dL 32-36 Automated erythrocyte distribution width ratio 15. 4 % 10.0- 14.5 Automated blood platelet count (count/volume) 148 10*3/uL 130-400 Automated blood platelet mean volume measurement 10.5 [foz_us] 7.4-10.4 Automated blood neutrophils/100 leukocytes 68 % 42-75 Automated blood lymphocytes/100 leukocytes 20 % 12-44 Blood monocytes/100 leukocytes 8 % 0-12 Automated blood eosinophils/100 leukocytes 4 % 0-10 Automated blood basophils/100 leukocytes 0 % 0-10 Blood neutrophils automated count (number/volume) 5.7 10*3 1.8-7.8 Blood lymphocytes automated count (number/volume) 1.7 10*3 1.0-4.0 Blood monocytes automated count (number/volume) 0. 7 10*3 0.0-1.0 Automated eosinophil count 0.3 10*3/uL 0 .0-0.3 Automated blood basophil count (count/volume) 0.0 10*3/uL 0.0-0.1 Whole blood basic metabolic panel - 09/14 05:40 Serum or plasma sodium measurement (moles/volume) 143 mmol/L 135-145 Serum or plasma potassium measurement (moles/volume) 4.0 mmol/L 3.6-5.0 Serum or plasma chloride measurement (moles/volume) 106 mmol/L 98-107 Carbon dioxide 26 mmol/L 21-32 Serum or plasma anion gap determination (moles/volume) 11 mmol/L 5-14 Serum or plasma urea nitrogen measurement (mass/volume ) 16 mg/dL 7-18 Serum or plasma creatinine measurement (mass/volume) 0.89 mg/dL 0.60-1.30 Serum or plasma urea nitrogen/creatinine mass ratio 18 NRG Serum or plasma creatinine measurement w ith calculation of estimated glomerular filtration rate > NRG Serum or plasma glucose measurement (mass/volume) 99 mg/dL 70-105 Serum or plasma calcium measurement (mass/volume) 9.0 mg/dL 8.5-10.1 Serum or plasma phosphate measurement (m ass/volume) - 09/24/19 05:40 Serum or plasma phosphate measurement (mass/volume) 3.6 mg/dL 2.3-4.7 Magnesium - 09/24/19 05:40 Magnesium 1.8 mg/dL 1.6-2.4 Encounters ACCT No. Visit Date/Time Discharge Status Pt. Type Provider Facility Loc./Unit Complaint [id number] 09/26/2019 09:15:00 09/26/2019 23:59: 59 [facility] [id number] 09/05/2018 15:00:00 Document Registration [id number] 09/03/2018 14:15:00 Document Registration [id number] 09/22/2019 11:57:00 15:00:00 DIS Outpatient DRAKE HANSEN MD [facility] 4TH BILAT PNA;COVID-19 PUI [id number] 09/18/2019 11:06:00 23:59:59 CLS Outpatient Franck HERNANDEZ MD [facility] CARD PREOP EXAM [id number] 09/15/2019 13:57:00 23:59:59 CLS Outpatient Franck HERNANDEZ MD [facility] CARD PREOP EXAM [id number] 04/07/2019 14:50:00 23:59:59 CLS Outpatient SELF JATINDER RODRIGUEZ [facility] RAD FS J20.8 B96.89 [id number] 01/20/2019 11:14:00 23:59:59 CLS Outpatient SHANNAN RODRIGUEZ, ROXIE Daniels [facility] RAD FS RADICULOPATHY [id number] 12/06/2018 15:45:00 12:20:00 DIS Inpatient JULIO RODRIGUEZ, YUMIKO Bautista [facility] 4TH PNA,ACUTE RESP DISTRESS [id number] 11/13/2018 10:49:00 23:59:59 CLS Preadmit SELF JATINDER RODRIGUEZ a [facility] RAD RADICULAR SYNDROME OF R IGHT LEG [id number] 10/05/2018 22:12:00 22:57:00 DIS Emergency KARTIK UREÑA DO [facility] ER FS TROUBLE BREATHING [id number] 09/29/2019 13:24:01 ACT Unknown
--- NOTE | 2019-10-04 12:18 | ED Respiratory ---
General Stated Complaint: FEVER,COUGH Source: patient Exam Limitations: no limitations History of Present Illness Date Seen by Provider: Oct 04, 2019 Time Seen by Provider: 12:05 Initial Comments Patient has ER by private conveyance from home with chief complaint that his family felt like he was doing worse. Discharged from the hospital for pneumonia. His cough and usual. He has some mild shortness of breath and his cool, clammy and sweaty feeling. He denies a history of diabetes. No history of COPD on oxygen 2 Liters by nasal cannula. Chest pain fever but has had. No increased swelling in the hands or feet. Negative stress test by Dr. Gibbons 09/18/19. Patient was discharged 10 days ago for pneumonia but negative COVID-19 PCR IgG antibodies and negative strep pneumonia antigen. Allergies and Home Medications Allergies Coded Allergies: Penicillins (Verified Allergy, Unknown, Pt has rec Rocephin in the past w/o issue, 09/22/19) niacin (Verified Allergy, Unknown, 12/06/18) Home Medications Acetaminophen 500 Mg Tablet, 1,000 MG PO HS PRN for PAIN-MILD, (Reported) Allopurinol 300 Mg Tablet, 300 MG PO DAILY, (Reported) Aspirin 325 Mg Tablet.dr, 325 MG PO DAILY, (Reported) Carvedilol 12.5 Mg Tablet, 12.5 MG PO BID Prescribed by: DRAKE HANSEN on 09/24/19 1134 Cefdinir 300 Mg Capsule, 300 MG PO BID Prescribed by: DRAKE HANSEN on 09/24/19 1134 Clopidogrel Bisulfate 75 Mg Tablet, 75 MG PO DAILY, (Reported) Fluticasone Propionate 9.9 Ml [place].susp, 1 SPRAY NSEACH DAILY PRN for CONGESTION, (Reported) Ibuprofen 200 Mg Tablet, 600-800 MG PO Q8H PRN for PAIN-MILD, (Reported) Montelukast Sodium 10 Mg Tablet, 10 MG PO HS, (Reported) Morphine Sulfate 30 Mg Tablet.er, 30 MG PO BID PRN for PAIN-SEVERE, (Reported) Multivits-Minerals/FA/Lycopene 1 Each Tablet, 1 EACH PO DAILY, (Reported) Omeprazole 20 Mg Capsule.dr, 20 MG PO DAILY, (Reported) TAKES MED BEFORE HE EATS Oxycodone HCl/Acetaminophen 1 Each Tablet, 1 TAB PO TID PRN for PAIN-MODERATE, (Reported) Rosuvastatin Calcium 20 Mg Tablet, 20 MG PO HS, (Reported) Sertraline HCl 100 Mg Tablet, 150 MG PO HS, (Reported) TAKES 1 & (100MG) TABS Temazepam 30 Mg Capsule, 30 MG PO HS, (Reported) Patient Home Medication List Home Medication List Reviewed: Yes Review of Systems Review of Systems Constitutional: No chills; diaphoresis; No fever; malaise, weakness EENTM: No ear discharge, No ear pain Respiratory: cough; No phlegm; short of breath Cardiovascular: No edema, No Hx of Intervention, No palpitations, No syncope Gastrointestinal: No abdominal pain, No constipation, No diarrhea, No melena, No nausea Genitourinary: No discharge, No dysuria Musculoskeletal: No back pain, No joint pain, No joint swelling Skin: No pruritus, No rash All Other Systems Reviewed Negative Unless Noted: Yes Past Zfaqmfx-Aetcub-Dovtrc Hx Patient Social History Alcohol Use: Denies Use Recreational Drug Use: No Smoking Status: Never a Smoker Type Used: Smokeless Tobacco 2nd Hand Smoke Exposure: No Recent Hopitalizations: No Seasonal Allergies Seasonal Allergies: No Past Medical History Surgeries: Yes CABG, Coronary Stent Respiratory: Yes (Nocturnal Hypoxemia) Cardiac: Yes (Chronic ischemic heart disease) Coronary Artery Disease, Heart Attack, High Cholesterol, Hypertension Neurological: No Genitourinary: No Gastrointestinal: Yes Gastroesophageal Reflux, Hiatal Hernia Musculoskeletal: Yes (Carpal tunnel syndrome, Degenerative Arthritis) Arthritis Endocrine: Yes (Hypercalcemia) HEENT: No Cancer: No Psychosocial: No Integumentary: No Blood Disorders: No Adverse Reaction/Blood Tranf: No Physical Exam Vital Signs - First Documented Capillary Refill : Height: 5'4.00" Weight: 192lbs. 0.9oz. 87.747113xg; 34.56 BMI Method:Stated General Appearance: WD/WN, moderate distress Eyes: Bilateral Eye Normal Inspection, Bilateral Eye PERRL, Bilateral Eye EOMI HEENT: PERRL/EOMI, normal ENT inspection; No pharynx normal (Dry oral mucosa) Neck: full range of motion, supple, normal inspection Respiratory: lungs clear, normal breath sounds, respiratory distress (Mild with oxygen sats in the mid to upper 80s on room air. 96-98% on 2 L by nasal cannula) Cardiovascular: normal peripheral pulses, regular rate, rhythm, other (trace bipedal edema) Gastrointestinal: normal bowel sounds, non tender, soft Extremities: normal range of motion, non-tender, normal inspection, normal capillary refill Neurologic/Psychiatric: alert, normal mood/affect, oriented x 3 Skin: normal color, warm/dry Focused Exam Sepsis Stage: Sepsis Possible Source: Pulmonary Lactate Level 10/04/19 12:03: Lactic Acid Level 1.92 Time of Focused Exam: 13:28 Respiratory: Rales, Respiratory Distress (Mpun-lu-qmzosfns on BiPAP satting 96- 97%. FiO2 45%.) Cardiovascular: Regular Rate, Rhythm, No JVD, Normal Peripheral Pulses Capillary Refill: Less Than 3 Seconds Peripheral Pulses: 2+ Radial Pulses (R), 2+ Radial Pulses (L) Skin: normal color, warm/dry Lactic Acid Level Laboratory Tests Test 10/04/19 12:03 Lactic Acid Level 1.92 MMOL/L (0.50-2.00) Within 3hrs of presentation: Admin fluids, Admin ABX, Blood cultures prior to ABX's, Focus exam, Lactate level Progress/Results/Core Measures Suspected Sepsis SIRS Temperature: Pulse: Respiratory Rate: Laboratory Tests 10/04/19 12:03: White Blood Count 31.0*H Blood Pressure / Mean: 10/04/19 12:03: Lactic Acid Level 1.92 Laboratory Tests 10/04/19 12:03: Creatinine 1.21, INR Comment 1.0, Platelet Count 214, Total Bilirubin 0.5 Results/Orders Lab Results Laboratory Tests Test 10/04/19 12:03 10/04/19 12:30 Range/Units White Blood Count 31.0 *H 4.3-11.0 10^3/uL Red Blood Count 4.09 L 4.35-5.85 10^6/uL Hemoglobin 12.9 L 13.3-17.7 G/DL Hematocrit 41 40-54 % Mean Corpuscular Volume 100 H 80-99 FL Mean Corpuscular Hemoglobin 32 25-34 PG Mean Corpuscular Hemoglobin Concent 32 32-36 G/DL Red Cell Distribution Width 15.4 H 10.0-14.5 % Platelet Count 214 130-400 10^3/uL Mean Platelet Volume 10.6 H 7.4-10.4 FL Neutrophils (%) (Auto) 95 H 42-75 % Lymphocytes (%) (Auto) 3 L 12-44 % Monocytes (%) (Auto) 3 0-12 % Eosinophils (%) (Auto) 0 0-10 % Basophils (%) (Auto) 0 0-10 % Neutrophils # (Auto) 29.4 H 1.8-7.8 X 10^3 Lymphocytes # (Auto) 0.9 L 1.0-4.0 X 10^3 Monocytes # (Auto) 0.8 0.0-1.0 X 10^3 Eosinophils # (Auto) 0.0 0.0-0.3 10^3/uL Basophils # (Auto) 0.0 0.0-0.1 10^3/uL Neutrophils % (Manual) 91 % Lymphocytes % (Manual) 1 % Monocytes % (Manual) 4 % Eosinophils % (Manual) 0 % Basophils % (Manual) 0 % Band Neutrophils 4 % Blood Morphology Comment NORMAL Erythrocyte Sedimentation Rate 6 0-30 MM/HR Prothrombin Time 13.8 12.2-14.7 SEC INR Comment 1.0 0.8-1.4 Activated Partial Thromboplast Time 35 24-35 SEC Blood Gas Puncture Site L.RADIAL Blood Gas Patient Temperature 37.2 Arterial Blood pH 7.32 *L 7.37-7.43 Arterial Blood Partial Pressure CO2 52 H 35-45 MMHG Arterial Blood Partial Pressure O2 90 79-93 MMHG Arterial Blood HCO3 26 23-27 MMOL/L Arterial Blood Total CO2 27.3 21.0-31.0 MMOL/L Arterial Blood Oxygen Saturation 96 94-100 % Arterial Blood Base Excess 0.4 -2.5-2.5 MMOL/L Miguel Test YES-POS Blood Gas Ventilator Setting NO Blood Gas Inspired Oxygen ROOM AIR Sodium Level 141 135-145 MMOL/L Potassium Level 4.9 3.6-5.0 MMOL/L Chloride Level 106 98-107 MMOL/L Carbon Dioxide Level 22 21-32 MMOL/L Anion Gap 13 5-14 MMOL/L Blood Urea Nitrogen 20 H 7-18 MG/DL Creatinine 1.21 0.60-1.30 MG/DL Estimat Glomerular Filtration Rate 60 BUN/Creatinine Ratio 17 Glucose Level 150 H 70-105 MG/DL Lactic Acid Level 1.92 0.50-2.00 MMOL/L Calcium Level 9.3 8.5-10.1 MG/DL Corrected Calcium 9.1 8.5-10.1 MG/DL Total Bilirubin 0.5 0.1-1.0 MG/DL Aspartate Amino Transf (AST/SGOT) 31 5-34 U/L Alanine Aminotransferase (ALT/SGPT) 34 0-55 U/L Alkaline Phosphatase 69 40-136 U/L Troponin I < 0.028 <0.028 NG/ML C-Reactive Protein High Sensitivity 3.34 H 0.00-0.50 MG/DL B-Type Natriuretic Peptide 47.5 <100.0 PG/ML Total Protein 8.2 6.4-8.2 GM/DL Albumin 4.2 3.2-4.5 GM/DL Procalcitonin 0.81 H <0.10 NG/ML My Orders Orders - HUDSON,KARLO J Chest 1 View, Ap/Pa Only (10/04/19 12:06) Cbc With Automated Diff (10/04/19 12:09) Comprehensive Metabolic Panel (10/04/19 12:09) Hs C Reactive Protein (10/04/19 12:09) Erythrocyte Sedimentation Rate (10/04/19 12:09) Procalcitonin (Pct) (10/04/19 12:09) Troponin I (10/04/19 12:09) Continuous Ekg Monitoring (10/04/19 12:09) Ekg Tracing (10/04/19 12:09) Blood Culture (10/04/19 12:09) Arterial Blood Gas (10/04/19 12:09) Aspirin Chewable Tablet (Baby Aspirin Ch (10/04/19 12:30) Manual Differential (10/04/19 12:03) Sputum Culture (10/04/19 12:32) Urinalysis (10/04/19 12:32) Urine Culture (10/04/19 12:32) Protime With Inr (10/04/19 12:32) Partial Thromboplastin Time (10/04/19 12:32) Ed Iv/Invasive Line Start (10/04/19 12:32) Vital Signs Adult Sepsis Patie Q15M (10/04/19 12:32) O2 (10/04/19 12:32) Remove Rings In Anticipation O (10/04/19 12:32) Lactic Acid Analyzer (10/04/19 12:32) Ns Iv 1000 Ml (Sodium Chloride 0.9%) (10/04/19 12:32) Cefepime Injection (Maxipime Injection) (10/04/19 12:45) Vancomycin Injection (Vancomycin Injecti (10/04/19 12:45) BNP (10/04/19 12:32) Coronavirus Sars-Cov-2 So 2019 (10/04/19 12:53) Medications Given in ED Current Medications Medications Dose Ordered Sig/Krystle Route Start Time Stop Time Status Last Admin Dose Admin Aspirin 324 mg ONCE ONCE PO 10/04/19 12:30 10/04/19 12:31 DC 10/04/19 12:46 324 MG Cefepime HCl 1000 mg/Sterile Water 10 ml @ 200 mls/hr ONCE ONCE IV 10/04/19 12:45 10/04/19 12:47 DC 10/04/19 12:46 200 MLS/HR Vancomycin HCl 1750 mg/Sodium Chloride 500 ml @ 258 mls/hr ONCE ONCE IV 10/04/19 12:45 10/04/19 14:41 10/04/19 13:06 258 MLS/HR Vital Signs/I&O 10/04/19 10/04/19 11:45 11:45 Temp 37.2 Pulse 83 Resp 21 B/P (MAP) 117/75 (89) Pulse Ox 94 94 O2 Delivery Nasal Cannula Nasal Cannula O2 Flow Rate 2.00 2.00 Capillary Refill : Progress Note #1: Time: 12:22 Progress Note EKG chest x-ray labs and blood cultures. Lung sounds are clear. Considering his recent negative COVID-19 screening having pneumonia he could've exposed and we will repeat blood COVID-19 swabs. He is at baseline for his oxygenation of the for his hospitalization for pneumonia he did not have supplemental oxygen demand. ABG has been obtained. D-dimer, ESR, CRP. Progress Note #2: Time: 12:37 Progress Note Patient has worsening white, Respiratory [place] and Meet Septic Criteria a White Count 30,000. Vancomycin and Cefepime and Selected. 2 L of the Greater Than 20 ML/Kg. Blood Pressure 160/100. ABG Shows CO2 Retention with Respiratory Acidosis and No Metabolic Compensation. BiPAP Is Been Ordered 28/08. Plan to Admit the ICU. ECG Initial ECG Impression Date: Oct 04, 2019 Initial ECG Impression Time: 12:30 Initial ECG Rate: 77 Initial ECG Rhythm: Normal Sinus Initial ECG Intervals: TN (248) Initial ECG Impression: 1st Degree AV Block Comment Sinus rhythm with first-degree AV block without ST elevation or depression. Diagnostic Imaging Diagonstic Imaging: Xray Plain Films/CT/US/NM/MRI: chest (1v) Comments Diffuse, bilateral, patchy infiltrates marginally improved from 09/24/19. Reviewed: Reviewed by Me Departure Communication (Admissions) Time/Spoke to Admitting Phy: 13:37 Discussed the case with Dr. Mayo and she accepts the patient the ICU on BiPAP and broad-spectrum antibiotics. COVID-19 test is pending. Impression Primary Impression: Acute respiratory failure with hypoxia and hypercarbia Additional Impressions: Pneumonia Qualified Codes: J18.9 - Pneumonia, unspecified organism Sepsis Qualified Codes: A41.9 - Sepsis, unspecified organism; R65.20 - Severe sepsis without septic shock; J96.02 - Acute respiratory failure with hypercapnia Disposition: ADMITTED INPATIENT Condition: Stable Admissions Decision to Admit Reason: Admit from ER (General) Decision to Admit/Date: Oct 04, 2019 Time/Decision to Admit Time: 12:35 Departure-Patient Inst. Referrals: JATINDER FRANKLIN MD (PCP/Family) Primary Care Physician KARLO TREVIÑO Oct 04, 2019 12:18
[2019-10-04 12:25] LABS: ABG BASE EXCESS 0.4 MMOL/L (-2.5-2.5); ABG OXYGEN SATURATION 96 % (94-100); ABG PCO2 52 MMHG (35-45); ABG PO2 90 MMHG (79-93); ABG TCO2 27.3 MMOL/L (21.0-31.0); BASOPHILS % (AUTO) 0 % (0-10); EOSINOPHILS % (AUTO) 0 % (0-10); HEMATOCRIT 41 % (40-54); HEMOGLOBIN 12.9 G/DL (13.3-17.7); LYMPHOCYTES # (AUTO) 0.9 X 10^3 (1.0-4.0); LYMPHOCYTES % (AUTO) 3 % (12-44); MEAN CORPUSCULAR HEMOGLOBIN 32 PG (25-34); MEAN CORPUSCULAR HGB CONC 32 G/DL (32-36); MEAN CORPUSCULAR VOLUME 100 FL (80-99); MEAN PLATELET VOLUME 10.6 FL (7.4-10.4); MONOCYTES # (AUTO) 0.8 X 10^3 (0.0-1.0); MONOCYTES % (AUTO) 3 % (0-12); NEUTROPHILS # (AUTO) 29.4 X 10^3 (1.8-7.8); NEUTROPHILS % (AUTO) 95 % (42-75); PLATELET COUNT 214 10^3/uL (130-400); RED CELL DISTRIBUTION WIDTH 15.4 % (10.0-14.5)
[2019-10-04] MEDS ORDERED: ASPIRIN 81 MG CHEW (CHILDREN'S ASA) PO ONE (12:30)
[2019-10-04 12:32] LABS: ABG PH 7.32 (7.37-7.43); ALLENS TEST YES-POS; INSPIRED O2 ROOM AIR; PATIENT TEMP 37.2; VENTILATOR NO
[2019-10-04] MEDS ORDERED: NS IV 1000 ML 1,000 ML IV SCH (12:32)
[2019-10-04 12:45] LABS: ERYTHROCYTE SEDIMENTATION RATE 6 MM/HR (0-30)
[2019-10-04] MEDS ORDERED: VANCOMYCIN INJECTION 1,750 MG in NS IV 500 ML 500 ML IV ONE (12:45)
[2019-10-04] MEDS ORDERED: CEFEPIME INJECTION 1,000 MG in WATER (STERILE) FOR INJECTION 10 ML IV ONE (12:45)
[2019-10-04 12:47] LABS: BAND NEUTROPHILS 4 %; BASOPHILS % (MANUAL) 0 %; EOSINOPHILS % (MANUAL) 0 %; LYMPHOCYTES % (MANUAL) 1 %; MONOCYTES % (MANUAL) 4 %; NEUTROPHILS % (MANUAL) 91 %; RBC MORPH NORMAL
[2019-10-04 12:49] LABS: PROTHROMBIN TIME PATIENT 13.8 SEC (12.2-14.7)
[2019-10-04 12:52] LABS: ALANINE AMINOTRANSFERASE 34 U/L (0-55); ALBUMIN 4.2 GM/DL (3.2-4.5); ALKALINE PHOSPHATASE 69 U/L (40-136); BILIRUBIN,TOTAL 0.5 MG/DL (0.1-1.0); BUN/CREATININE RATIO 17; CALCIUM 9.3 MG/DL (8.5-10.1); CARBON DIOXIDE 22 MMOL/L (21-32); CHLORIDE 106 MMOL/L (98-107); CREATININE SERUM 1.21 MG/DL (0.60-1.30); GFR ESTIMATED 60; GLUCOSE 150 MG/DL (70-105); POTASSIUM 4.9 MMOL/L (3.6-5.0); SODIUM 141 MMOL/L (135-145); TOTAL PROTEIN 8.2 GM/DL (6.4-8.2)
--- NOTE | 2019-10-04 12:58 | Diagnostic Imaging Report ---
EXAM: CHEST 1 VIEW, AP/PA ONLY INDICATION: Weakness. COMPARISON: 09/24/2019. FINDINGS: Sternotomy. Cardiomegaly with prominent central pulmonary vascularity. Esophageal hiatal hernia. Mild atelectasis or infiltrate in the right lung base is similar to the prior exam. No pleural effusion or pneumothorax. Postoperative changes in the cervical spine. IMPRESSION: 1. Persistent mild atelectasis or infiltrate in the right lung base. 2. Stable cardiomegaly. 3. Esophageal hiatal hernia. Dictated by: Dictated on workstation # [id number]
--- NOTE | 2019-10-04 13:54 | NUR ---
PT RESTING QUIETLY, NO C/O VOICED.
--- NOTE | 2019-10-04 15:13 | NUR ---
ADVERTISING REPRESENTATIVE ET RT HERE FOR PT.
--- OUTSIDE RECORDS SUMMARY | 2019-10-04 16:07 | XMS REPORT | Continuity of Care Document ---
Author Organization Unknown Address Unknown Phone Unavailable Allergies Active Description Code Type Severity Reaction Onset Reported/Identified Relationship to Patient Clinical Status Yes niacin [id number] Drug Allergy Unknown N/A 12/06/2018 Yes No Known Drug Allergies [id number] Drug Allergy Unknown N/A 12/06/2018 Yes Penicillins [id number] Drug Aller gy Unknown N/A 12/06/2018 Yes Penicillins [id number] Drug Aller gy Unknown Pt has rec Roce 09/22/2019 Medications There is no data. Problems Date Dx Coded Attending Type Code Diagnosis Diagnosed By 10/05/2018 KARTIK UREÑA DO, Ot I10 ESSENTIAL (PRIMARY) HYPERTENSION 10/05/2018 KARTIK UREÑA DO, Ot I25.10 ATHSCL HEART DISEASE OF [place] CORONARY 10/05/2018 KARTIK UREÑA DO, Ot J01.90 ACUTE SINUSITIS, UNSPECIFIED 10/05/2018 KARTIK UREÑA DO, Ot R09.81 NASAL CONGESTION 10/07/2018 KARTIK UREÑA DO, Ot I10 ESSENTIAL (PRIMARY) HYPERTENSION 10/07/2018 KARTIK UREÑA DO, Ot I25.10 ATHSCL HEART DISEASE OF [place] CORONARY 10/07/2018 KARTIK UREÑA DO, Ot J01.90 ACUTE SINUSITIS, UNSPECIFIED 10/07/2018 KARTIK UREÑA DO, Ot R09.81 NASAL CONGESTION 12/09/2018 JULIO RODRIGUEZ, YUMIKO Bautista Ot A41 .9 SEPSIS, UNSPECIFIED ORGANISM 12/09/2018 YUMIKO KIM MD Ot D53 .9 NUTRITIONAL ANEMIA, UNSPECIFIED 12/09/2018 UYMIKO KIM MD Ot E78.00 PURE HYPERCHOLESTEROLEMIA, UNSPECIFIED 12/09/2018 YUMIKO KIM MD Ot F17.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, CHEWING TOBACCO, UN 12/09/2018 YUMIKO KIM MD Ot I10 ESSENTIAL (PRIMARY) HYPERTENSION 12/09/2018 YUMIKO KIM MD Ot I25.10 ATHSCL HEART DISEASE OF [place] CORONARY 12/09/2018 YUMIKO KIM MD Ot J18 .1 LOBAR PNEUMONIA, UNSPECIFIED ORGANISM 12/09/2018 YUMIKO KIM MD Ot K21 .9 GASTRO-ESOPHAGEAL REFLUX DISEASE WITHOUT 12/09/2018 YUMIKO KIM MD Ot K44 .9 DIAPHRAGMATIC HERNIA WITHOUT OBSTRUCTION 12/09/2018 YUMIKO IKM MD Ot M19.91 PRIMARY OSTEOARTHRITIS, UNSPECIFIED SITE [...] MD Ot I25.10 ATHSCL HEART DISEASE OF [place] CORONARY 09/17/2019 DAVID RODRIGUEZ, Franck VELASQUEZ Ot [...] Ot I25.1 0 ATHSCL HEART DISEASE OF [place] CORONARY 09/24/2019 DRAKE HANSEN MD Ot I25.2 [...] 7-25 CREATININE 0.86 mg/dL 0.70-1.25 eGFR NON-AFR. MICRONESIAN 91 mL/min/1.73m2 > OR = 60 eGFR [...] 140-400 MPV 10.9 fL 7.5-12.5 ABSOLUTE NEUTROPHILS 21694 cells/uL 1500 -7800 ABSOLUTE MONOCYTES 724 cells/uL [...] Sputum Gram stain Mixed Bacterial Ernestina [facility] Bacterial sputum culture - 12/07/18 12:5 7 QUANTITY OF GROWTH . [facility] Bacterial sputum culture USUAL RESP [facility] ANEMIA ANALYZER - 12/09/18 05:10 [...] OF GROWTH Isolated NRG Bacterial blood culture [id number] NRG SUSCEPTIBILITY NO SUSCEPTIBILITY PERFORMED NRG MRSA SCREEN PLEASE NOTIFY MICROBIOLOGY AT EXT 141 NRG RAPID ID PRELIM RAPID ID TEST AT [facility] 09/22 17:24 NRG MRSA CONFIRMATION IF DR [...] - 09/24/19 05:40 Magnesium 1.8 mg/dL 1.6-2.4 Arterial blood gas measurement - 0 12:03 Blood pCO2 52 mm[Hg] 35-45 Blood pO2 90 mm[Hg] 79-93 Arterial blood bicarbonate measurement (moles/volume) 26 mmol/L 23-27 Arterial blood base excess by calculation 0.4 mmol /L -2.5-2.5 Arterial blood oxygen saturation measurement 96 % 94-100 * Inhaled oxygen flow rate ROOM AIR NRG Arterial blood pH measurement with patient temperature correction 7.32 7.37-7.43 Arterial blood carbon dioxide, total measurement (mole s/volume) 27.3 mmol/L 21.0-31.0 Body site L.RADIAL NRG Assessment of wrist artery patency prior to arterial p uncture YES-POS NRG Setting of ventilation mode NO NR G Measurement of body temperature 37.2 NRG Complete blood count (CBC) with automate d white blood cell (WBC) differential - 10/04/19 12:03 Blood leukocytes automated count (number/volume) 31.0 10*3/uL 4.3-11.0 Blood erythrocytes automated count (number/volume) 4.09 10*6/uL 4.35-5.85 Venous blood hemoglobin measurement (mass/volume) 12.9 g/dL 13.3-17.7 Blood hematocrit (volume fraction) 41 % 40-54 Automated erythrocyte mean corpuscular volume 100 [foz_us] 80-99 Automated erythrocyte mean corpuscular h emoglobin (mass per erythrocyte) 32 pg 25-34 Automated erythrocyte mean corpuscular h emoglobin concentration measurement (mass/volume) 32 g/dL 32-36 Automated erythrocyte distribution width ratio 15. 4 % 10.0- 14.5 Automated blood platelet count (count/volume) 214 10*3/uL 130-400 Automated blood platelet mean volume measurement 10.6 [foz_us] 7.4-10.4 Automated blood neutrophils/100 leukocytes 95 % 42-75 Automated blood lymphocytes/100 leukocytes 3 % 12-44 Blood monocytes/100 leukocytes 3 % 0-12 Automated blood eosinophils/100 leukocytes 0 % 0-10 Automated blood basophils/100 leukocytes 0 % 0-10 Blood neutrophils automated count (number/volume) 29.4 10*3 1.8-7.8 Blood lymphocytes automated count (number/volume) 0.9 10*3 1.0-4.0 Blood monocytes automated count (number/volume) 0. 8 10*3 0.0-1.0 Automated eosinophil count 0.0 10*3/uL 0 .0-0.3 Automated blood basophil count (count/volume) 0.0 10*3/uL 0.0-0.1 Manual absolute plasma cell count - 09/15 12:03 Blood monocytes/100 leukocytes 4 % NRG Manual blood segmented neutrophils/100 leukocytes 91 % NRG Blood band neutrophils/100 leukocytes 4 % NRG Manual blood lymphocytes/100 leukocytes 1 % NRG Manual eosinophils/100 leukocytes in nose 0 % NRG Manual blood basophils/100 leukocytes 0 % NRG Blood erythrocyte morphology finding identification NORMAL NRG Erythrocyte sedimentation rate by mansoor gren method - 10/04/19 12:03 Erythrocyte sedimentation rate by westergren method 6 mm 0- 30 Blood lactic acid measurement (moles/vol ume) - 10/04/19 12:03 Blood lactic acid measurement (moles/volume) 1.92 mmol/L 0.50-2.00 PT panel in platelet poor plasma by coag ulation assay - 10/04/19 12:03 Prothrombin time (PT) in platelet poor plasma by coagu lation assay 13.8 s 12.2-14.7 INR in platelet poor plasma or blood by coagulation as say 1.0 0.8-1.4 Activated partial thromboplastin time (a PTT) in platelet poor plasma bycoagulation assay - 10/04/19 12:03 Activated partial thromboplastin time (a PTT) in platelet poor plasma bycoagulation assay 35 s 24-35 Comprehensive metabolic panel - 10/04/19 12:03 Serum or plasma sodium measurement (moles/volume) 141 mmol/L 135-145 Serum or plasma potassium measurement (moles/volume) 4.9 mmol/L 3.6-5.0 Serum or plasma chloride measurement (moles/volume) 106 mmol/L 98-107 Carbon dioxide 22 mmol/L 21-32 Serum or plasma anion gap determination (moles/volume) 13 mmol/L 5-14 Serum or plasma urea nitrogen measurement (mass/volume ) 20 mg/dL 7-18 Serum or plasma creatinine measurement (mass/volume) 1.21 mg/dL 0.60-1.30 Serum or plasma urea nitrogen/creatinine mass ratio 17 NRG Serum or plasma creatinine measurement w ith calculation of estimated glomerular filtration rate 60 NRG Serum or plasma glucose measurement (mass/volume) 150 mg/dL 70-105 Serum or plasma calcium measurement (mass/volume) 9.3 mg/dL 8.5-10.1 Serum or plasma total bilirubin measurement (mass/volu me) 0.5 mg/dL 0.1-1.0 Serum or plasma alkaline phosphatase дмитрий surement (enzymatic activity/volume) 69 U/L 40-136 Serum or plasma aspartate aminotransfera se measurement (enzymatic activity/volume) 31 U/L 5-34 Serum or plasma alanine aminotransferase measurement (enzymatic activity/volume) 34 U/L 0-55 Serum or plasma protein measurement (mass/volume) 8.2 g/dL 6.4-8.2 Serum or plasma albumin measurement (mass/volume) 4.2 g/dL 3.2-4.5 CALCIUM CORRECTED 9.1 mg/dL 8.5-10.1 PROCALCITONIN (PCT) - 10/04/19 12:03 PROCALCITONIN (PCT) 0.81 ng/mL <0.10 Serum or plasma troponin i.cardiac measu rement (mass/volume) - 10/04/19 12:03 Serum or plasma troponin i.cardiac measurement (mass/v olume) < ng/mL <0.028 Serum or plasma lithium measurement (mol es/volume) - 10/04/19 12:03 BNP PT 47.5 pg/mL <100.0 Serum or plasma C reactive protein measu rement (mass/volume) - 10/04/19 12:03 Serum or plasma C reactive protein measurement (mass/v olume) 3.34 mg/dL 0.00-0.50 Encounters ACCT No. Visit Date/Time Discharge Status Pt. Type Provider Facility Loc./Unit Complaint [id number] 09/26/2019 09:15:00 09/26/2019 23:59: 59 CLS [facility]patient [facility] [id number] 09/05/2018 15:00:00 Document Registration [id number] 09/03/2018 14:15:00 Document Registration [id number] 09/22/2019 11:57:00 15:00:00 DIS Outpatient DRAKE HANSEN MD [facility] 4TH BILAT PNA;COVID-19 PUI [id number] 09/18/2019 11:06:00 23:59:59 CLS Outpatient Franck HERNANDEZ MD [facility] CARD PREOP EXAM [id number] 09/15/2019 13:57:00 23:59:59 CLS Outpatient Franck HERNANDEZ MD [facility] CARD PREOP EXAM [id number] 04/07/2019 14:50:00 23:59:59 CLS Outpatient JATINDER FRANKLIN MD [facility] RAD FS J20.8 B96.89 [id number] 01/20/2019 11:14:00 23:59:59 CLS Outpatient SHANNAN RODRIGUEZ, ROXIE Daniels [facility] RAD FS RADICULOPATHY [id number] 12/06/2018 15:45:00 12:20:00 DIS Inpatient JULIO RODRIGUEZ, YUMIKO Bautista [facility] 4TH PNA,ACUTE RESP DISTRESS [id number] 11/13/2018 10:49:00 23:59:59 CLS Preadmit SELF , JATINDER Eagle a [facility] RAD RADICULAR SYNDROME OF R IGHT LEG [id number] 10/05/2018 22:12:00 22:57:00 DIS Emergency KARTIK UREÑA DO [facility] ER FS TROUBLE BREATHING [id number] 10/04/2019 12:32:00 Document Registration [id number] 09/29/2019 13:24:01 ACT Unknown
[2019-10-04] MEDS ORDERED: ONDANSETRON 4 MG/2 ML (SDV) Z0FRAN IVP PRN (16:45)
[2019-10-04] MEDS ORDERED: ACETAMINOPHEN 500 MG TAB (TYLENOL) PO PRN (16:45)
[2019-10-04] MEDS ORDERED: EPINEPHrine 1 MG INJECTION 2 MG in NS (IVPB) 248 ML IV SCH (16:45)
[2019-10-04] MEDS: VASOPRESSIN INJECTION 20 UNIT in NORMAL SALINE 100 ML IV SCH (17:04)
[2019-10-04] MEDS: NOREPINEPHRINE 4 MG/250 ML 250 ML IV SCH (17:04)
[2019-10-04] MEDS: NS IV 1000 ML 1,000 ML IV SCH (17:18)
[2019-10-04] MEDS: CEFEPIME INJECTION 1,000 MG in WATER (STERILE) FOR INJECTION 10 ML IV SCH (17:19)
--- NOTE | 2019-10-04 20:14 | NUR ---
Spoke to Dr. Mayo and informed her that pts COVID-19 test came back negative. Received orders that it is okay to take pt out of airborne isolation.
--- NOTE | 2019-10-04 20:21 | NUR ---
telephone orders received from dr. talley for haro catheter placement and lovenox 40mg daily.
[2019-10-05] VITALS (27 sets, daily range): BP systolic 117–177; BP diastolic 72–104
[2019-10-05] MEDS: CEFEPIME INJECTION 1,000 MG in WATER (STERILE) FOR INJECTION 10 ML IV SCH ×5 (00:17→23:18)
[2019-10-05] MEDS: ENOXAPARIN 40 MG/0.4 ML (LOVENOX) SYR SC SCH ×2 (00:17→23:19)
[2019-10-05] MEDS: VANCOMYCIN 1250 MG/NS 250 ML IVPB IV SCH ×4 (00:17→11:11)
[2019-10-05] MEDS: NS IV 1000 ML 1,000 ML IV SCH ×4 (00:18→20:21)
[2019-10-05] MEDS: NOREPINEPHRINE 4 MG/250 ML 250 ML IV SCH ×4 (01:13→22:19)
[2019-10-05] MEDS: VASOPRESSIN INJECTION 20 UNIT in NORMAL SALINE 100 ML IV SCH ×3 (01:14→12:32)
[2019-10-05 03:15] LABS: BASOPHILS % (AUTO) 0 % (0-10); EOSINOPHILS # (AUTO) 0.1 10^3/uL (0.0-0.3); EOSINOPHILS % (AUTO) 1 % (0-10); HEMATOCRIT 33 % (40-54); HEMOGLOBIN 10.2 G/DL (13.3-17.7); LYMPHOCYTES # (AUTO) 2.1 X 10^3 (1.0-4.0); LYMPHOCYTES % (AUTO) 14 % (12-44); MEAN CORPUSCULAR HEMOGLOBIN 31 PG (25-34); MEAN CORPUSCULAR HGB CONC 31 G/DL (32-36); MEAN CORPUSCULAR VOLUME 100 FL (80-99); MEAN PLATELET VOLUME 10.3 FL (7.4-10.4); MONOCYTES # (AUTO) 0.7 X 10^3 (0.0-1.0); MONOCYTES % (AUTO) 4 % (0-12); NEUTROPHILS # (AUTO) 12.7 X 10^3 (1.8-7.8); NEUTROPHILS % (AUTO) 81 % (42-75); PLATELET COUNT 175 10^3/uL (130-400); RED CELL DISTRIBUTION WIDTH 15.2 % (10.0-14.5); WHITE BLOOD COUNT 15.6 10^3/uL (4.3-11.0)
[2019-10-05 03:32] LABS: CHLORIDE 110 MMOL/L (98-107); POTASSIUM 4.2 MMOL/L (3.6-5.0); SODIUM 142 MMOL/L (135-145)
[2019-10-05 03:33] LABS: CALCIUM 8.3 MG/DL (8.5-10.1); GLUCOSE 95 MG/DL (70-105)
[2019-10-05 03:35] LABS: CARBON DIOXIDE 23 MMOL/L (21-32)
[2019-10-05 03:37] LABS: CREATININE SERUM 0.82 MG/DL (0.60-1.30); GFR ESTIMATED > 60; PHOSPHORUS 2.8 MG/DL (2.3-4.7)
[2019-10-05 03:38] LABS: BUN/CREATININE RATIO 22
[2019-10-05 03:40] LABS: MAGNESIUM 1.8 MG/DL (1.6-2.4)
[2019-10-05] MEDS: POTASSIUM CL 10MEQ/50ML IVPB 50 ML IV SCH (05:56)
[2019-10-05] MEDS: MAGNESIUM 1 GM/100 ML IVPB 100 ML IV SCH (05:56)
[2019-10-05] MEDS: KCL 20 MEQ TAB (K-DUR) PO SCH (05:56)
[2019-10-05] MEDS ORDERED: RT-ALBUTEROL SULF 2.5 MG/3 ML PRE-MIX VIAL INH PRN (06:30)
--- NOTE | 2019-10-05 07:07 | NUR ---
pt is asleep at this time. will come back and teach pt how to do is and aerobika when awake. pt is on 2l nc with o2 saturation of 98% Addendum: 10/05/19 at 0708 by JAYY MORRIS RT Amended: Links added.
--- NOTE | 2019-10-05 09:01 | Diagnostic Imaging Report ---
INDICATION: Dyspnea. Compared 10/03 FINDINGS: Sternal wires midline. Patchy infiltrate in the right mid to lower lung increased in density. The left lung clear. IMPRESSION: Worsened right basilar infiltrate Dictated by: Dictated on workstation # [id number]
--- NOTE | 2019-10-05 10:49 | History & Physical-Hospitalist ---
History of Present Illness HPI/Chief Complaint CC: Recurrent PNA HPI: This is a 64yoWM clinic patient of Dr Darden who was just admitted and DC 2 weeks ago for PNA who presents to the ER with fever and dyspnea. COVID-19 swabbed was negative but eICU requests a reswab so I ordered that and added the COVID-19 antibody. Patient feels better and less dyspneic. Patient required haro catheter placement due to retention and his reports that he has had issues with bladder problems for awhile and requests Urology to see him while here so I ordered consult for Dr Allison. Also he has seen Cardiology and it appears he is in need of cardiac catheter planned for recently but delayed due to COVID-19. Patient has no issues and is coughing less. Source: patient, RN/MD Exam Limitations: no limitations Date Seen 10/05/19 Time Seen by a Provider: 10:00 Attending Physician Vickie Markham Maxwell MD Referring Physician Date of Admission Oct 04, 2019 at 13:40 Home Medications & Allergies Home Medications Reviewed patient Home Medication Reconciliation performed by pharmacy medication reconciliations apprentice instrument technician and/or nursing. Patients Allergies have been reviewed. Allergies Allergies Coded Allergies Penicillins (Verified Allergy, Unknown, Pt has rec Rocephin in the past w/o issue, 09/22/19) niacin (Verified Allergy, Unknown, 12/06/18) Past Soffbaq-Cagoft-Rfrsjp Hx Past Med/Social Hx: Reviewed Nursing Past Med/Soc Hx, Reviewed and Corrections made Patient Social History Marrital Status: Employed/Student: retired ([employer]) Alcohol Use: Denies Use Recreational Drug Use: No Smoking Status: Never a Smoker Type Used: Smokeless Tobacco 2nd Hand Smoke Exposure: No Recent Foreign Travel: No Contact w/other who traveled: No Recent Hopitalizations: No Recent Infectious Disease Expo: No Seasonal Allergies Seasonal Allergies: No Past Medical History Surgeries: CABG, Coronary Stent Respiratory: Pneumonia Cardiac: Coronary Artery Disease, Heart Attack, High Cholesterol, Hypertension Gastrointestinal: Gastroesophageal Reflux, Hiatal Hernia Musculoskeletal: Arthritis History of Blood Disorders: No Adverse Reaction to Blood Vidal: No Review of Systems Constitutional: see HPI, dizziness, fever, weakness Respiratory: cough, dyspnea on exertion Psychiatric/Neurological: See HPI Physical Exam Physical Exam Vital Signs Vital Signs - First Documented 10/04/19 16:00 FiO2 45 Capillary Refill : Less Than 3 Seconds Height, Weight, BMI Height: 5'4.00" Weight: 192lbs. 0.9oz. 87.212183xm; 44.00 BMI Method:Stated General Appearance: No Apparent Distress, WD/WN, Chronically ill Eyes: Right Eye Normal Inspection, Right Eye PERRL HEENT: PERRL/EOMI, Normal ENT Inspection, Pharynx Normal, Moist Mucous Membranes Neck: Full Range of Motion, Normal Inspection, Non Tender Respiratory: Chest Non Tender, Lungs Clear, No Accessory Muscle Use, No Respiratory Distress, Decreased Breath Sounds Cardiovascular: Regular Rate, Rhythm, No Edema, No Gallop, No JVD, No Murmur, Normal Peripheral Pulses Gastrointestinal: Normal Bowel Sounds, No Organomegaly, No Pulsatile Mass, Non Tender, Soft Back: Normal Inspection, No CVA Tenderness, No Vertebral Tenderness Extremity: Normal Capillary Refill, Normal Inspection, Normal Range of Motion, Non Tender, No Calf Tenderness, No Pedal Edema Neurologic/Psychiatric: Alert, Oriented x3, No Motor/Sensory Deficits, Normal Mood/Affect Skin: Normal Color, Warm/Dry Lymphatic: No Adenopathy Results Results/Procedures Labs Laboratory Tests 10/04/19 12:03 10/05/19 02:55 Patient resulted labs reviewed. Assessment/Plan Admission Diagnosis Assessment: Sepsis PNA recurrent type COVID-19 swab negative but reswabbing and adding the abx on due to suspicious of COVID-19 Urinary retention requiring haro catheter and Urology consultation CAD abnl EST need cath in future HTN HLP Plan: IV abx O2 Nebs COVID swab again with abx added to it Admission Status: Inpatient Order (span 2 midnights) Reason for Inpatient Admission: ent PNA suspicion for COVID Diagnosis/Problems Diagnosis/Problems (1) Acute respiratory failure with hypoxia and hypercarbia Status: Acute (2) Pneumonia Status: Acute Qualifiers: Pneumonia type: due to unspecified organism Laterality: bilateral Lung location: unspecified part of lung Qualified Codes: J18.9 - Pneumonia, unspecified organism (3) Sepsis Status: Acute Qualifiers: Sepsis type: sepsis due to unspecified organism Sepsis acute organ dysfunction status: with acute organ dysfunction Severe sepsis acute organ dysfunction type: acute respiratory failure Acute respiratory failure type: with hypercapnia Severe sepsis shock status: without septic shock Qualified Codes: A41.9 - Sepsis, unspecified organism; R65.20 - Severe sepsis without septic shock; J96.02 - Acute respiratory failure with hypercapnia (4) Acute on chronic respiratory failure with hypoxia Status: Acute (5) DVT prophylaxis Status: Acute (6) HTN (hypertension) Status: Chronic (7) CAD (coronary artery disease) Status: Chronic Clinical Quality Measures DVT/VTE Risk/Contraindication: Risk Factor Score Per Nursin RFS Level Per Nursing on Admit: 4+=Very High VICKIE MARKHAM DO Oct 05, 2019 10:49
[2019-10-05] MEDS ORDERED: morphine ER 30 MG (MS CONTIN) TAB PO ONE (21:14)
[2019-10-05] MEDS ORDERED: amLODIPine 5 MG (NORVASC) TAB PO ONE (21:15)
[2019-10-05] MEDS ORDERED: cloNIDine 0.1 MG (CATAPRES) TAB PO PRN (21:15)
[2019-10-05] MEDS: TEMAZEPAM 15 MG (RESTORIL) CAP PO PRN (21:27)
[2019-10-05] MEDS: morphine ER 15 MG (MS CONTIN) TAB PO SCH (21:36)
[2019-10-06] VITALS (23 sets, daily range): BP systolic 135–167; BP diastolic 80–110
[2019-10-06] MEDS: VANCOMYCIN 1250 MG/NS 250 ML IVPB IV SCH ×2 (00:19)
[2019-10-06 02:52] LABS: BASOPHILS % (AUTO) 0 % (0-10); EOSINOPHILS # (AUTO) 0.1 10^3/uL (0.0-0.3); EOSINOPHILS % (AUTO) 1 % (0-10); HEMATOCRIT 31 % (40-54); HEMOGLOBIN 9.8 G/DL (13.3-17.7); LYMPHOCYTES # (AUTO) 1.9 X 10^3 (1.0-4.0); LYMPHOCYTES % (AUTO) 16 % (12-44); MEAN CORPUSCULAR HEMOGLOBIN 31 PG (25-34); MEAN CORPUSCULAR HGB CONC 32 G/DL (32-36); MEAN CORPUSCULAR VOLUME 99 FL (80-99); MEAN PLATELET VOLUME 11.1 FL (7.4-10.4); MONOCYTES # (AUTO) 0.6 X 10^3 (0.0-1.0); MONOCYTES % (AUTO) 5 % (0-12); NEUTROPHILS # (AUTO) 8.9 X 10^3 (1.8-7.8); NEUTROPHILS % (AUTO) 77 % (42-75); PLATELET COUNT 174 10^3/uL (130-400); WHITE BLOOD COUNT 11.6 10^3/uL (4.3-11.0)
[2019-10-06 03:04] LABS: CHLORIDE 110 MMOL/L (98-107); POTASSIUM 3.9 MMOL/L (3.6-5.0); SODIUM 142 MMOL/L (135-145)
[2019-10-06 03:05] LABS: CALCIUM 8.6 MG/DL (8.5-10.1)
[2019-10-06 03:06] LABS: GLUCOSE 92 MG/DL (70-105)
[2019-10-06 03:07] LABS: CARBON DIOXIDE 23 MMOL/L (21-32)
[2019-10-06 03:09] LABS: CREATININE SERUM 0.79 MG/DL (0.60-1.30); GFR ESTIMATED > 60; PHOSPHORUS 2.8 MG/DL (2.3-4.7)
[2019-10-06 03:10] LABS: BUN/CREATININE RATIO 19
[2019-10-06 03:12] LABS: MAGNESIUM 1.9 MG/DL (1.6-2.4)
[2019-10-06] MEDS: VASOPRESSIN INJECTION 20 UNIT in NORMAL SALINE 100 ML IV SCH (04:03)
[2019-10-06] MEDS: POTASSIUM CL 10MEQ/50ML IVPB 50 ML IV SCH (04:18)
[2019-10-06] MEDS: MAGNESIUM 1 GM/100 ML IVPB 100 ML IV SCH (04:19)
[2019-10-06] MEDS: NOREPINEPHRINE 4 MG/250 ML 250 ML IV SCH (04:51)
[2019-10-06] MEDS: KCL 20 MEQ TAB (K-DUR) PO SCH (04:51)
[2019-10-06] MEDS: CEFEPIME INJECTION 1,000 MG in WATER (STERILE) FOR INJECTION 10 ML IV SCH ×4 (05:49→23:22)
--- NOTE | 2019-10-06 06:02 | Pulmonary Consultation ---
History of Present Illness History of Present Illness Date Seen by Provider: Oct 06, 2019 Time Seen by Provider: 05:57 Date of Admission Allergies and Home Medications Allergies Coded Allergies: Penicillins (Verified Allergy, Unknown, Pt has rec Rocephin in the past w/o issue, 09/22/19) niacin (Verified Allergy, Unknown, 12/06/18) Home Medications Acetaminophen 500 Mg Tablet, 1,000 MG PO HS PRN for PAIN-MILD, (Reported) Allopurinol 300 Mg Tablet, 300 MG PO DAILY, (Reported) Aspirin 325 Mg Tablet.dr, 325 MG PO DAILY, (Reported) Carvedilol 12.5 Mg Tablet, 12.5 MG PO BID Prescribed by: DRAKE HANSEN on 09/24/19 1134 Cefdinir 300 Mg Capsule, 300 MG PO BID Prescribed by: DRAKE HANSEN on 09/24/19 1134 Clopidogrel Bisulfate 75 Mg Tablet, 75 MG PO DAILY, (Reported) Fluticasone Propionate 9.9 Ml [place].susp, 1 SPRAY NSEACH DAILY PRN for CONGESTION, (Reported) Ibuprofen 200 Mg Tablet, 600-800 MG PO Q8H PRN for PAIN-MILD, (Reported) Montelukast Sodium 10 Mg Tablet, 10 MG PO HS, (Reported) Morphine Sulfate 30 Mg Tablet.er, 30 MG PO BID PRN for PAIN-SEVERE, (Reported) Multivits-Minerals/FA/Lycopene 1 Each Tablet, 1 EACH PO DAILY, (Reported) Omeprazole 20 Mg Capsule.dr, 20 MG PO DAILY, (Reported) TAKES MED BEFORE HE EATS Oxycodone HCl/Acetaminophen 1 Each Tablet, 1 TAB PO TID PRN for PAIN-MODERATE, (Reported) Rosuvastatin Calcium 20 Mg Tablet, 20 MG PO HS, (Reported) Sertraline HCl 100 Mg Tablet, 150 MG PO HS, (Reported) TAKES 1 & (100MG) TABS Temazepam 30 Mg Capsule, 30 MG PO HS, (Reported) Past Lmmzhql-Axsbcz-Yavbki Hx Past Med/Social Hx: Reviewed Nursing Past Med/Soc Hx, Reviewed and Corrections made Patient Social History Alcohol Use: Denies Use Recreational Drug Use: No Smoking Status: Never a Smoker Type Used: Smokeless Tobacco 2nd Hand Smoke Exposure: No Recent Foreign Travel: No Contact w/Someone Who Travel: No Recent Infectious Disease Expo: No Recent Hopitalizations: No Seasonal Allergies Seasonal Allergies: No Past Medical History Surgeries: Yes CABG, Coronary Stent Respiratory: Yes (Nocturnal Hypoxemia) Cardiac: Yes (Chronic ischemic heart disease) Coronary Artery Disease, Heart Attack, High Cholesterol, Hypertension Neurological: No Genitourinary: No Gastrointestinal: Yes Gastroesophageal Reflux, Hiatal Hernia Musculoskeletal: Yes (Carpal tunnel syndrome, Degenerative Arthritis) Arthritis Endocrine: Yes (Hypercalcemia) HEENT: No Cancer: No Psychosocial: No Integumentary: No Blood Disorders: No Adverse Reaction/Blood Tranf: No Review of Systems Time Seen by Provider: 06:06 Sepsis Event Evaluation Height, Weight, BMI Height: 5'4.00" Weight: 192lbs. 0.9oz. 87.315528vd; 44.00 BMI Method:Stated Exam Exam Vital Signs Date Time Temp Pulse Resp B/P (MAP) Pulse Ox O2 Delivery O2 Flow Rate FiO2 10/06/19 04:00 Nasal Cannula 2.00 10/06/19 03:30 36.1 10/06/19 02:00 57 15 148/85 (106) 94 Nasal Cannula 4.00 10/06/19 01:00 55 10/06/19 01:00 55 13 153/80 (104) 97 Nasal Cannula 4.00 10/06/19 00:18 58 14 146/82 (103) 92 Nasal Cannula 4.00 10/06/19 00:00 Nasal Cannula 2.00 10/05/19 23:25 60 17 95 Nasal Cannula 4.00 10/05/19 23:00 62 22 156/85 (108) 94 Nasal Cannula 2.00 10/05/19 22:51 61 17 164/90 (114) 91 Nasal Cannula 2.00 10/05/19 22:00 54 15 174/104 (127) Nasal Cannula 2.00 10/05/19 21:53 36.8 10/05/19 21:00 59 16 159/93 (115) 95 Nasal Cannula 2.00 10/05/19 20:48 65 20 175/94 (121) 94 Nasal Cannula 2.00 10/05/19 20:00 Nasal Cannula 2.00 10/05/19 20:00 73 12 177/93 (121) 97 Nasal Cannula 2.00 10/05/19 19:00 74 10/05/19 19:00 74 33 167/94 (118) 97 Nasal Cannula 2.00 10/05/19 18:00 75 26 165/96 (119) 96 Nasal Cannula 2.00 10/05/19 17:00 75 18 171/90 (117) 95 Nasal Cannula 2.00 10/05/19 16:00 70 16 162/101 (121) 95 Nasal Cannula 2.00 10/05/19 16:00 Nasal Cannula 2.00 10/05/19 15:00 61 12 166/99 (121) 98 Nasal Cannula 2.00 10/05/19 14:00 70 16 162/101 (121) 95 Nasal Cannula 2.00 10/05/19 13:05 70 10/05/19 13:00 78 18 156/96 (116) 97 Nasal Cannula 2.00 10/05/19 12:00 59 26 152/94 (113) 98 Nasal Cannula 2.00 10/05/19 12:00 Nasal Cannula 2.00 10/05/19 11:00 76 31 156/80 (105) 97 Nasal Cannula 2.00 10/05/19 10:00 60 13 146/81 (102) 98 Nasal Cannula 2.00 10/05/19 09:00 62 14 136/76 (96) 97 Nasal Cannula 2.00 10/05/19 08:00 37.0 10/05/19 08:00 Nasal Cannula 2.00 10/05/19 08:00 57 13 142/84 (103) 97 Nasal Cannula 2.00 10/05/19 07:27 Nasal Cannula 2.00 10/05/19 07:00 62 10/05/19 07:00 59 12 144/85 (104) 98 Nasal Cannula 2.00 10/05/19 06:24 37.2 83 94 28 10/05/19 06:00 62 13 136/74 (94) 97 Nasal Cannula 2.00 I & O 10/06/19 07:00 Intake Total 1250 ml Output Total 2550 ml Balance -1300 ml Height & Weight Height: 5'4.00" Weight: 192lbs. 0.9oz. 87.102330lv; 44.00 BMI Method:Stated General Appearance: No Apparent Distress, WD/WN, Chronically ill HEENT: PERRL/EOMI, Normal ENT Inspection, Pharynx Normal, Moist Mucous Membranes Neck: Full Range of Motion, Normal Inspection, Non Tender Respiratory: Chest Non Tender, Lungs Clear, No Accessory Muscle Use, No Respiratory Distress, Decreased Breath Sounds Cardiovascular: Regular Rate, Rhythm, No Edema, No Gallop, No JVD, No Murmur, Normal Peripheral Pulses Capillary Refill: Less Than 3 Seconds Peripheral Pulses: 2+ Radial Pulses (R), 2+ Radial Pulses (L) Gastrointestinal: normal bowel sounds, non tender, soft Extremity: Normal Capillary Refill, Normal Inspection, Normal Range of Motion, Non Tender, No Calf Tenderness, No Pedal Edema Neurologic/Psychiatric: Alert, Oriented x3, No Motor/Sensory Deficits, Normal Mood/Affect Skin: Normal Color, Warm/Dry Lymphatic: No Adenopathy Results Lab Laboratory Tests 10/04/19 12:03 10/05/19 02:55 10/06/19 02:00 Assessment/Plan Assessment/Plan PNA with Sepsis -COVID swab is negative and Ab is pending -Marinelli cultures pending -Currently on Vanco and Cefepime Urinary retention s/p Mejia -Urology consulted Chronic nocturnal hypoxia -Pt uses 2 liters QHS Anemia -Monitor HTN with bradycardia -Change Clonidine to PRN hydralazine -Norvasc daily -Restart home Coreg however will hold if HR < 60 -continue to monitor STEVEN LAKE DO Oct 06, 2019 06:02
[2019-10-06] MEDS ORDERED: morphine ER 15 MG (MS CONTIN) TAB PO SCH (09:00)
[2019-10-06] MEDS: CARVEDILOL 3.125 MG (COREG) TABLET PO SCH ×2 (09:26→19:48)
[2019-10-06] MEDS: amLODIPine 10 MG (NORVASC) TAB PO SCH (09:26)
[2019-10-06] MEDS: morphine ER 15 MG (MS CONTIN) TAB PO SCH ×2 (09:26→19:48)
--- NOTE | 2019-10-06 11:42 | Progress Note ---
Subjective Subjective/Events-last exam Afebrile, no acute events, states he is feeling better and wonders when he can go home. He is still on 4 lpm supplemental oxygen. His repeat COVID swab is negative, antibody is pending. Focused Exam Lactate Level 10/04/19 12:03: Lactic Acid Level 1.92 Time of Focused Exam: 13:28 Objective Exam Last Set of Vital Signs Vital Signs Date Time Temp Pulse Resp B/P (MAP) Pulse Ox O2 Delivery O2 Flow Rate FiO2 10/06/19 11:00 56 12 146/82 (103) 95 Nasal Cannula 4.00 10/06/19 09:26 36.6 10/05/19 06:24 28 Capillary Refill : Less Than 3 Seconds I&O Intake and Output 10/06/19 00:00 Intake Total 3682.5 ml Output Total 2900 ml Balance 782.5 ml Intake Oral 1400 ml IV Total 2282.5 ml Output Urine Total 2900 ml General: Alert, No Acute Distress Lungs: Other (decreased air movement right base) Heart: Regular Rate, No Murmurs Psych/Mental Status: Mental Status NL Results/Procedures Lab Laboratory Tests 10/06/19 02:00: White Blood Count 11.6H, Red Blood Count 3.15L, Hemoglobin 9.8L, Hematocrit 31L, Mean Corpuscular Volume 99, Mean Corpuscular Hemoglobin 31, Mean Corpuscular Hemoglobin Concent 32, Red Cell Distribution Width 15.0H, Platelet Count 174, Mean Platelet Volume 11.1H, Neutrophils (%) (Auto) 77H, Lymphocytes (%) (Auto) 16, Monocytes (%) (Auto) 5, Eosinophils (%) (Auto) 1, Basophils (%) (Auto) 0, Neutrophils # (Auto) 8.9H, Lymphocytes # (Auto) 1.9, Monocytes # (Auto) 0.6, Eosinophils # (Auto) 0.1, Basophils # (Auto) 0.0, Sodium Level 142, Potassium Level 3.9, Chloride Level 110H, Carbon Dioxide Level 23, Anion Gap 9, Blood Urea Nitrogen 15, Creatinine 0.79, Estimat Glomerular Filtration Rate > 60, BUN/Creatinine Ratio 19, Glucose Level 92, Calcium Level 8.6, Phosphorus Level 2.8, Magnesium Level 1.9 Microbiology 10/04/19 MRSA Screen - Final, Complete MRSA not isolated 10/04/19 Blood Culture - Preliminary, Resulted No growth Assessment/Plan Assessment/Plan (1) Sepsis Status: Acute Assessment & Plan: Secondary to pneumonia. On cefepime and vancomycin with marked improvement in white blood cell count. Qualifiers: Qualified Codes: A41.9 - Sepsis, unspecified organism; R65.20 - Severe sepsis without septic shock; J96.02 - Acute respiratory failure with hypercapnia (2) Pneumonia Status: Acute Assessment & Plan: On cefepime and vancomycin. Still requiring 4 lpm supplemen lilly oxygen, at baseline uses only at night. CXR with right basilar infiltrate. COVID swab x 2 negative (and negative on last admit), antibody pending. Qualifiers: Qualified Codes: J18.9 - Pneumonia, unspecified organism (3) CAD (coronary artery disease) Status: Chronic (4) HTN (hypertension) Status: Chronic (5) Acute on chronic respiratory failure with hypoxia Status: Acute (6) DVT prophylaxis Status: Acute Assessment & Plan: Enoxaparin Clinical Quality Measures DVT/VTE Risk/Contraindication: Risk Factor Score Per Nursin RFS Level Per Nursing on Admit: 4+=Very High YUMIKO KIM MD Oct 06, 2019 11:42
[2019-10-06] MEDS ORDERED: hydrALAZINE (APESOLINE) 20 MG/ML VIAL IV SCH (12:00)
[2019-10-06] MEDS ORDERED: NEBI5TAB8 PO (13:45)
[2019-10-06] MEDS ORDERED: CARV12.52 PO (13:45)
[2019-10-06] MEDS ORDERED: MORP-68 PO (13:45)
--- NOTE | 2019-10-06 13:46 | NUR ---
SPOKE WITH THE PT - HE WANTED ME TO CALL HIS RADHA, I SPOKE WITH RADHA AND WENT THRU THE EXT MED HISTORY TO COMPLETE THE MED REC THE PT WAS RECENTLY HERE AND I COMPLETED THE MED REC ON 09-22-2019 AND HE WAS DISCHARGED ON 09-24-2019. AT THE TIME OF HIS DISCHARGE THE BYSTOLIC AND TO BE DISCONTINUED AND COREG 12.5MG WAS TO BE STARTED. WHEN I SPOKE WITH THE PATIENTS SHE INDICATED THAT DUE TO THE COST OF BYSTOLIC THEY WERE HIM TO FINISH TAKING WHAT HE HAD AT HOME (HE FILLED A 180 DAY SUPPLY ON 04-07-2019) AND WOULD THEN START THE COREG. I PUT BOTH MEDS ON THE EXT MED HISTORY AND WILL LET HIS NURSE KNOW THE PATIENT IS NOW TAKING 45 MG ( 30MG +15MG) OF MORPHINE TWICE DAILY OTC MEDS: MTV ASPIRIN 325MG TYLENOL IBUPROFEN
--- NOTE | 2019-10-06 14:15 | Physician Query Clarification ---
PQ-Uncertain Diagnosis Admission/Discharge Admission Date: Oct 04, 2019 at 13:40 Discharge Date: The medical record reflects the following clinical scenario: History/Risk Factors: Sepsis Pneumonia Clinical Findings: On admission: T 37.2, P 83, Resp 21, pulse ox 94%, 02 sats on room air 91, BP 117/75, lactic acid 1.92. Blood gases: pH 3.72, PC02 52, p02 90, HC03 26, Total C02 27.3, 02 Sat 96, Base excess 0.4. Treatment: NIV Bilevel 45.00 %FI02, then nasal cannula 2-4L. Question: Is Acute respiratory failure with hypoxia and hypercarbia a clinically valid diagnosis? Acute respiratory failure with hypoxia and hypercarbia was documented in your Diagnosis problem list, but not in your assessment. Please document a response in Progress Note or Discharge Summary. 1. Yes, clinically valid, condition resolved. 2. No, condition ruled out. 3. Other, with explanation of clinical findings. 4. Undetermined, no explanation for clinical findings. PHYSICIAN RESPONSE Diagnosis clinically valid: Yes, Conditon resolved Please remember a lack of response to the above will prompt a phone page by CDI/Coding staff. In responding to this query, please exercise your independent professional judgment. The purpose of this communication is to more accurately reflect the complexity of your patients condition. The fact that a question is asked does not imply that any particular answer is desired or expected. Thank you for your timely response to this clarification. Requestors name: Kenna Cortez [facility] Phone # ext [phone] or [phone] THIS PHYSICIAN QUERY FORM IS A PERMANENT PART OF THE MEDICAL RECORD KENNA CORTEZ Oct 06, 2019 14:15 HALEY MARKHAM DO Oct 06, 2019 19:59
--- NOTE | 2019-10-06 14:26 | Physician Query Clarification ---
PQ-Uncertain Diagnosis Admission/Discharge Admission Date: Oct 04, 2019 at 13:40 Discharge Date: The medical record reflects the following clinical scenario: History/Risk Factors: Sepsis Pneumonia Clinical Findings: ED impression per Dr. Ro listed severe sepsis without septic shock in ED impression qualifier code. Also listed acute respiratory failure with hypoxia and hypercarbia in impression qualifier. Treatment: IV Vancomycin HCI 1,750 mg, IV Cefepime HCI 1,000mg. Question: Is Severe sepsis a clinically valid diagnosis? Severe sepsis was listed only in the ED impression qualifiers without mention anywhere else in record. Please document a response in Progress Note or Discharge Summary. 1. Yes, clinically valid, condition resolved. 2. No, condition ruled out. 3. Other, with explanation of clinical findings. 4. Undetermined, no explanation for clinical findings. PHYSICIAN RESPONSE Diagnosis clinically valid: Yes, Conditon resolved Please remember a lack of response to the above will prompt a phone page by CDI/Coding staff. In responding to this query, please exercise your independent professional judgment. The purpose of this communication is to more accurately reflect the complexity of your patients condition. The fact that a question is asked does not imply that any particular answer is desired or expected. Thank you for your timely response to this clarification. Requestors name: Kenna Cortez [facility] Phone # ext [phone] or [phone] THIS PHYSICIAN QUERY FORM IS A PERMANENT PART OF THE MEDICAL RECORD KENNA CORTEZ Oct 06, 2019 14:26 HALEY MARKHAM DO Oct 06, 2019 19:59
--- NOTE | 2019-10-06 14:41 | Physician Query Clarification ---
PQ-Link Manifestation-Etiology Admission/Discharge Admission Date: Oct 04, 2019 at 13:40 Discharge Date: The medical record reflects the following clinical scenario: History/Risk Factors: Shortness of breath Nocturnal hypoxemia Clinical Findings: Weight 93.2 kg, height 162.56cm, BMI 44.0 documented by April Deluna on 10/03 at 11:45. Treatment: Low sodium diet. Question: Can you specify if the BMI of 44.0 is due to/associated with Morbid obesity? Please document a response in the Progress Note or Discharge Summary. 1. Yes - BMI of 44.0 is due to/associated with morbid obesity. 2. No - BMI of 44.0 is not due to/associated with morbid obesity. 3. Other, with explanation of the clinical findings. 4. Clinically undetermined, no explanation for the clinical findings. PHYSICIAN RESPONSE Manifestation due to/assoic: Yes Please remember a lack of response to the above will prompt a phone page by CDI/Coding staff. In responding to this query, please exercise your independent professional judgment. The purpose of this communication is to more accurately reflect the complexity of your patients condition. The fact that a question is asked does not imply that any particular answer is desired or expected. Thank you for your timely response to this clarification. Requestors name: Kenna Cortez [facility] Phone # ext [phone] or [phone] THIS PHYSICIAN QUERY FORM IS A PERMANENT PART OF THE MEDICAL RECORD KENNA CORTEZ Oct 06, 2019 14:41 HALEY MARKHAM DO Oct 06, 2019 20:00
[2019-10-06] MEDS ORDERED: CEFEPIME 1 GM (MAXIPIME) VIAL ONE ×2 (16:31→23:10)
[2019-10-06] MEDS: oxyCODONE/APAP 10/325MG (PERCOCET 10) TABLET PO PRN (16:57)
[2019-10-06] MEDS: TEMAZEPAM 15 MG (RESTORIL) CAP PO PRN (19:48)
[2019-10-06] MEDS ORDERED: WATER (STERILE) FOR INJECTION 10 ML ONE (23:10)
[2019-10-06] MEDS: ENOXAPARIN 40 MG/0.4 ML (LOVENOX) SYR SC SCH (23:21)
[2019-10-07] VITALS (15 sets, daily range): BP systolic 141–179; BP diastolic 82–106
[2019-10-07 03:51] LABS: BASOPHILS % (AUTO) 0 % (0-10); EOSINOPHILS # (AUTO) 0.3 10^3/uL (0.0-0.3); EOSINOPHILS % (AUTO) 4 % (0-10); HEMATOCRIT 35 % (40-54); HEMOGLOBIN 10.9 G/DL (13.3-17.7); LYMPHOCYTES # (AUTO) 2.3 X 10^3 (1.0-4.0); LYMPHOCYTES % (AUTO) 28 % (12-44); MEAN CORPUSCULAR HEMOGLOBIN 31 PG (25-34); MEAN CORPUSCULAR HGB CONC 31 G/DL (32-36); MEAN CORPUSCULAR VOLUME 98 FL (80-99); MEAN PLATELET VOLUME 10.8 FL (7.4-10.4); MONOCYTES # (AUTO) 0.6 X 10^3 (0.0-1.0); MONOCYTES % (AUTO) 7 % (0-12); NEUTROPHILS # (AUTO) 4.9 X 10^3 (1.8-7.8); NEUTROPHILS % (AUTO) 61 % (42-75); PLATELET COUNT 190 10^3/uL (130-400); RED CELL DISTRIBUTION WIDTH 15.4 % (10.0-14.5); WHITE BLOOD COUNT 8.1 10^3/uL (4.3-11.0)
[2019-10-07 04:11] LABS: CHLORIDE 106 MMOL/L (98-107); POTASSIUM 3.9 MMOL/L (3.6-5.0); SODIUM 142 MMOL/L (135-145)
[2019-10-07 04:12] LABS: CALCIUM 9.5 MG/DL (8.5-10.1); GLUCOSE 87 MG/DL (70-105)
[2019-10-07] MEDS ORDERED: WATER (STERILE) FOR INJECTION 10 ML ONE (04:12)
[2019-10-07] MEDS ORDERED: CEFEPIME 1 GM (MAXIPIME) VIAL ONE (04:12)
[2019-10-07 04:14] LABS: CARBON DIOXIDE 25 MMOL/L (21-32)
[2019-10-07 04:16] LABS: CREATININE SERUM 0.83 MG/DL (0.60-1.30); GFR ESTIMATED > 60; PHOSPHORUS 3.5 MG/DL (2.3-4.7)
[2019-10-07 04:17] LABS: BUN/CREATININE RATIO 18
[2019-10-07 04:19] LABS: MAGNESIUM 1.9 MG/DL (1.6-2.4)
[2019-10-07] MEDS: POTASSIUM CL 10MEQ/50ML IVPB 50 ML IV SCH (04:20)
[2019-10-07] MEDS: KCL 20 MEQ TAB (K-DUR) PO SCH (04:21)
[2019-10-07] MEDS: MAGNESIUM 1 GM/100 ML IVPB 100 ML IV SCH (04:24)
[2019-10-07] MEDS: CEFEPIME INJECTION 1,000 MG in WATER (STERILE) FOR INJECTION 10 ML IV SCH ×4 (04:26→23:47)
[2019-10-07] MEDS: hydrALAZINE (APESOLINE) 20 MG/ML VIAL IV PRN ×2 (04:26→20:33)
[2019-10-07] MEDS: oxyCODONE/APAP 10/325MG (PERCOCET 10) TABLET PO PRN (04:37)
[2019-10-07] MEDS: morphine ER 15 MG (MS CONTIN) TAB PO SCH ×2 (07:42→20:32)
[2019-10-07] MEDS: amLODIPine 10 MG (NORVASC) TAB PO SCH (07:42)
[2019-10-07] MEDS: CARVEDILOL 3.125 MG (COREG) TABLET PO SCH ×2 (07:42→20:32)
--- NOTE | 2019-10-07 08:06 | Pulmonary Progress Note ---
Subjective Time Seen by a Provider: 08:06 Sepsis Event Evaluation Height, Weight, BMI Height: 5'4.00" Weight: 192lbs. 0.9oz. 87.756742ql; 44.00 BMI Method:Stated Focused Exam Lactate Level 10/04/19 12:03: Lactic Acid Level 1.92 Time of Focused Exam: 13:28 Exam Exam Vital Signs Date Time Temp Pulse Resp B/P (MAP) Pulse Ox O2 Delivery O2 Flow Rate FiO2 10/07/19 07:00 68 10/07/19 07:00 36.6 69 22 148/91 (110) 96 Nasal Cannula 2.00 10/07/19 06:00 68 24 157/94 (115) 97 Nasal Cannula 2.00 10/07/19 05:00 63 152/90 (110) 99 Nasal Cannula 2.00 10/07/19 04:30 64 166/101 (122) 94 Nasal Cannula 2.00 10/07/19 04:04 Nasal Cannula 2.00 10/07/19 04:00 46 8 172/106 (128) 92 Nasal Cannula 2.00 10/07/19 03:02 36.1 Nasal Cannula 2.00 10/07/19 03:00 52 9 168/99 (122) 95 Nasal Cannula 2.00 10/07/19 02:00 53 9 167/96 (119) 92 Nasal Cannula 2.00 10/07/19 01:00 55 10/07/19 01:00 51 11 162/94 (116) 92 Nasal Cannula 2.00 10/07/19 00:00 55 11 168/91 (116) 97 Nasal Cannula 2.00 10/06/19 23:28 Nasal Cannula 2.00 10/06/19 23:22 36.7 Nasal Cannula 2.00 10/06/19 23:00 54 26 167/95 (119) 97 Nasal Cannula 2.00 10/06/19 22:00 59 27 158/96 (116) 97 Room Air 10/06/19 21:00 57 9 155/90 (111) 94 Room Air 10/06/19 20:00 Room Air 10/06/19 20:00 68 14 165/93 (117) 93 Room Air 10/06/19 19:31 36.8 10/06/19 19:00 94 Room Air 10/06/19 19:00 73 10/06/19 19:00 73 12 152/95 (114) Room Air 10/06/19 18:00 61 15 159/92 (114) 90 Nasal Cannula 4.00 10/06/19 17:00 56 12 159/110 (126) 90 Nasal Cannula 4.00 10/06/19 16:00 61 12 151/99 (116) 95 Nasal Cannula 4.00 10/06/19 16:00 Nasal Cannula 4.00 10/06/19 15:00 55 12 143/90 (107) 91 Nasal Cannula 4.00 10/06/19 14:00 56 11 136/83 (100) 90 Nasal Cannula 4.00 10/06/19 13:00 65 16 135/85 (102) 90 Nasal Cannula 4.00 10/06/19 12:38 56 10/06/19 12:00 Nasal Cannula 4.00 10/06/19 12:00 55 14 95 Nasal Cannula 4.00 10/06/19 11:00 56 12 146/82 (103) 95 Nasal Cannula 4.00 10/06/19 10:00 60 13 142/88 (106) 94 Nasal Cannula 4.00 10/06/19 09:26 36.6 10/06/19 09:00 68 17 153/85 (107) 98 Nasal Cannula 4.00 I & O 10/07/19 07:00 Intake Total 1500 ml Output Total 3075 ml Balance -1575 ml Height & Weight Height: 5'4.00" Weight: 192lbs. 0.9oz. 87.617654rq; 44.00 BMI Method:Stated General Appearance: No Apparent Distress, WD/WN, Chronically ill HEENT: PERRL/EOMI, Normal ENT Inspection, Pharynx Normal, Moist Mucous Membranes Neck: Full Range of Motion, Normal Inspection, Non Tender Respiratory: Chest Non Tender, Lungs Clear, No Accessory Muscle Use, No Resp iratory Distress, Decreased Breath Sounds Cardiovascular: Regular Rate, Rhythm, No Edema, No Gallop, No JVD, No Murmur, Normal Peripheral Pulses Capillary Refill: Less Than 3 Seconds Peripheral Pulses: 2+ Radial Pulses (R), 2+ Radial Pulses (L) Gastrointestinal: normal bowel sounds, non tender, soft Extremity: Normal Capillary Refill, Normal Inspection, Normal Range of Motion, Non Tender, No Calf Tenderness, No Pedal Edema Neurologic/Psychiatric: Alert, Oriented x3, No Motor/Sensory Deficits, Normal Mood/Affect Skin: Normal Color, Warm/Dry Lymphatic: No Adenopathy Results Lab Laboratory Tests 10/06/19 02:00 10/07/19 02:54 Assessment/Plan Assessment/Plan PNA with Sepsis -COVID swab is negative -Marinelli cultures pending -Currently on Vanco and Cefepime Urinary retention s/p Mejia -Urology consulted Chronic nocturnal hypoxia -Pt uses 2 liters QHS Anemia -Monitor HTN with bradycardia -Change Clonidine to PRN hydralazine -Norvasc daily -Restart home Coreg however will hold if HR < 60 -continue to monitor STEVEN LAKE DO Oct 07, 2019 08:06
--- NOTE | 2019-10-07 08:30 | Diagnostic Imaging Report ---
INDICATION: Dyspnea. TECHNIQUE: Single view chest 3:14 AM. CORRELATION STUDY: 10/05/2019 FINDINGS: Poststernotomy changes. Heart size is mildly enlarged. Vasculature is slightly prominent but less congested from prior. There is improvement in aeration of the lung acosta. Minimal residual infiltrate remaining at the right lung base. IMPRESSION: 1. Improved with minimal residual infiltrate at the right lung base. Dictated by: Dictated on workstation # [id number]
--- NOTE | 2019-10-07 09:16 | NUR ---
REPORT RECEIVED FROM ILENE Molina RN
--- NOTE | 2019-10-07 09:17 | NUR ---
report given to Angely ANGUIANO
--- NOTE | 2019-10-07 09:40 | NUR ---
PT ICU TRANSFER TO ROOM 420. A/O X4. IV TO RIGHT WRIST SL. EUGENE DRAINING TO DEPENDENT DRAINAGE. PT ORIENTED TO ROOM/CALL LIGHT. VOICES NO COMPLAINTS AT THIS TIME.
--- NOTE | 2019-10-07 10:27 | Physical Therapy Evaluation ---
PT Evaluation-General Medical Diagnosis Admission Date Oct 04, 2019 at 13:40 Medical Diagnosis: acute respiratory failure with hypoxia Onset Date: Oct 04, 2019 Therapy Diagnosis Therapy Diagnosis: debility/weakness Height/Weight Height (Feet): 5 Height (Inches): 4.00 Weight (Pounds): 192 Weight (Ounces): 0.9 Precautions Precautions/Isolations: Fall Prevention, Standard Precautions Weight Bear Status Right Lower Extremity: Right Weight Bearing/Tolerated Left Lower Extremity: Left Weight Bearing/Tolerated Referral Physician: Ayan Reason for Referral: Evaluation/Treatment Medical History Pertinent Medical History: CABG, CAD, HTN, [place] Current History ER secondary to pneumonia/recent hospital stay due to pneumonia Reviewed History: Yes Social History Home: Single Level Current Living Status: Spouse Entry Into Home: Level Entry Prior Prior Level of Function SCALE: Activities may be completed with or without assistive devices. 3-Wjhonkaowy-kzcovpn completes the activity by him/herself with no assistance from a helper. 5-Set-up or Clean-up Assistance-helper sets up or cleans up; patient completes activity. [place] assists only prior to or following the activity. 4-Supervision or Touching Assistance-helper provides verbal cues and/or touching/steadying and/or contact guard assistance as patient completes activity. Assistance may be provided throughout the activity or intermittently. 3-Partial/Moderate Assistance-helper does LESS THAN HALF the effort. [place] lifts, holds or supports trunk or limbs, but provides less than half the effort. 2-Substantial/Maximal Assistance-helper does MORE THAN HALF the effort. [place] lifts or holds trunk or limbs and provides more than half the effort. 6-Rubzvutil-dggyxr does ALL the effort. Patient does none of the effort to complete the activity. Or, the assistance of 2 or more helpers is required for the patient to complete the activity. If activity was not attempted, code reason: 7-Patient Refused. 9-Not Applicable-not attempted and the patient did not perform the activity before the current illness, exacerbation or injury. 10-Not Attempted due to Environmental Limitations-(lack of equipment, weather restraints, etc.). 88-Not Attempted due to Medical Conditions or Safety Concerns. Bed Mobility: 6 Transfers (B,C,W/C): 6 Gait: 6 PT Evaluation-Current Subjective Patient c/o weakness. Pain Numeric Pain Scale: 0-No Pain Location: No Pain Reported Objective Patient Orientation: Normal For Age Attachments: Mejia Catheter ROM/Strength ROM Lower Extremities bilateral LE WFL Strength Lower Extremities 4/5 grossly all planes bilateral LE Integumentary/Posture Integumentary refer to nursing notes Bladder Incontinence: Mejia Cath Posture WFL Neuromuscular (Tone, Coordination, Reflexes) noted diminished proprioception bilateral LE with ambulation Sensory Vision: Functional Hearing: Functional Sensation Right Lower Extremit: Impaired Sensation Left Lower Extremity: Impaired Transfers Sit to Stand (QC): 4 Gait Does the Patient Walk?: Yes Mode of Locomotion: Walk Anticipated Mode of Locomotion: Walk Walk 10 feet (QC): 4 Walk 50 ft with 2 Turns(QC): 4 Walk 150 ft (QC): 4 Distance: 225' Gait Assistive Device: FWW Comments/Gait Description noted bilateral heel medial whip with NBOS. Due to NBOS, heels contacted each other during gait sequence increase fall risk due to possibility of tripping. Wheelchair Training Does the Pt Use a Wheelchair?: No Balance Sitting Static: Normal Sitting Dynamic: Normal Standing Static: Fair Standing Dynamic: Fair Assessment/Needs 64 y.o. male, with noted gait deviation, will benefit from skilled PT to address functional strength and mobility. From a PT standpoint, patient would benefit from ARU to ensure safe return to home with spouse. Rehab Potential: Fair PT Nursing Home Goals Nursing Home Goals PT Nursing Home Goals Time Frame: Oct 25, 2019 Roll Left & Right (QC): 6 Sit to Lying (QC): 6 Lying-Sitting on Side/Bed(QC): 6 Sit to Stand (QC): 6 Chair/Law-gh-Pnpoc Xfer(QC): 6 Toilet Transfer (QC): 6 Car Transfer (QC): 6 Does the Patient Walk: Yes Walk 10 feet (QC): 6 Walk 50ft with 2 Turns (QC): 6 Walk 150 ft (QC): 6 Walking 10ft on Uneven Surface: 6 1 Step (curb) (QC): 6 PT Plan Problem List Problem List: Activity Tolerance, Safety, Balance, Gait, Transfer Treatment/Plan Treatment Plan: Continue Plan of Care Treatment Plan: Bed Mobility, Education, Functional Activity Britney, Functional Strength, Gait, Safety, Therapeutic Exercise, Transfers Treatment Duration: Oct 25, 2019 Frequency: 6 times per week Estimated Hrs Per Day: .25 hour per day Patient and/or Family Agrees t: Yes Discharge Recommendations Therapy Discharge Recommendati: Other, See Comments (ARU) Time/GCodes Time In: 948 Time Out: 1002 Total Billed Treatment Time: 14 Total Billed Treatment 1 visit EVMod 14 min ILENE BLAKE PT Oct 07, 2019 10:27
--- NOTE | 2019-10-07 11:08 | Progress Note ---
Subjective Subjective/Events-last exam Afebrile, feeling better. Denies concerns. Hoping to go home soon. Focused Exam Lactate Level 10/04/19 12:03: Lactic Acid Level 1.92 Time of Focused Exam: 13:28 Objective Exam Last Set of Vital Signs Vital Signs Date Time Temp Pulse Resp B/P (MAP) Pulse Ox O2 Delivery O2 Flow Rate FiO2 10/07/19 10:30 Room Air 10/07/19 10:00 36.3 62 18 150/91 (110) 95 10/07/19 09:00 2.00 10/05/19 06:24 28 Capillary Refill : Less Than 3 Seconds I&O Intake and Output 10/07/19 00:00 Intake Total 1410 ml Output Total 2575 ml Balance -1165 ml Intake Oral 1400 ml IV Total 10 ml Output Urine Total 2575 ml General: Alert, No Acute Distress Lungs: Clear to Auscultation, Normal Air Movement Heart: Regular Rate, No Murmurs Neuro: Normal Speech Psych/Mental Status: Mood NL Results/Procedures Lab Laboratory Tests 10/07/19 02:54: White Blood Count 8.1, Red Blood Count 3.53L, Hemoglobin 10.9L, Hematocrit 35L, Mean Corpuscular Volume 98, Mean Corpuscular Hemoglobin 31, Mean Corpuscular Hemoglobin Concent 31L, Red Cell Distribution Width 15.4H, Platelet Count 190, Mean Platelet Volume 10.8H, Neutrophils (%) (Auto) 61, Lymphocytes (%) (Auto) 28, Monocytes (%) (Auto) 7, Eosinophils (%) (Auto) 4, Basophils (%) (Auto) 0, Neutrophils # (Auto) 4.9, Lymphocytes # (Auto) 2.3, Monocytes # (Auto) 0.6, Eosinophils # (Auto) 0.3, Basophils # (Auto) 0.0, Sodium Level 142, Potassium Level 3.9, Chloride Level 106, Carbon Dioxide Level 25, Anion Gap 11, Blood Urea Nitrogen 15, Creatinine 0.83, Estimat Glomerular Filtration Rate > 60, BUN/Creatinine Ratio 18, Glucose Level 87, Calcium Level 9.5, Phosphorus Level 3.5, Magnesium Level 1.9 Microbiology 10/04/19 MRSA Screen - Final, Complete MRSA not isolated 10/04/19 Blood Culture - Preliminary, Resulted No growth Assessment/Plan Assessment/Plan (1) Sepsis Status: Resolved Assessment & Plan: Secondary to pneumonia. On cefepime and vancomycin with marked improvement in white blood cell count. 10/06 WBC down to normal, afebrile Qualifiers: Qualified Codes: A41.9 - Sepsis, unspecified organism; R65.20 - Severe sepsis without septic shock; J96.02 - Acute respiratory failure with hypercapnia (2) Pneumonia Status: Acute Assessment & Plan: On cefepime and vancomycin. Still requiring 4 lpm supplemental oxygen, at baseline uses only at night. CXR with right basilar infiltrate. COVID swab x 2 negative (and negative on last admit), antibody pending. 10/06 COVID negative and COVID antibody neg yesterday, continued on cefepime, vancomycin d/c. Improving, down to 2 lpm supplemental oxygen today, transfer to floor. Qualifiers: Qualified Codes: J18.9 - Pneumonia, unspecified organism (3) CAD (coronary artery disease) Status: Chronic (4) HTN (hypertension) Status: Chronic Qualifiers: Qualified Codes: I10 - Essential (primary) hypertension (5) Acute on chronic respiratory failure with hypoxia Status: Acute (6) Debility Status: Acute Assessment & Plan: IRF consult (7) DVT prophylaxis Status: Acute Assessment & Plan: Enoxaparin Clinical Quality Measures DVT/VTE Risk/Contraindication: Risk Factor Score Per Nursin RFS Level Per Nursing on Admit: 4+=Very High YUMIKO KIM MD Oct 07, 2019 11:08
--- NOTE | 2019-10-07 13:03 | CONSULTATION REPORT ---
DATE OF SERVICE: 10/07/2019 ATTENDING PHYSICIAN: Dr. Botello/Dr. Mayo. SUMMARY: A 64-year-old white man admitted with pneumonia and his mentions to Dr. Mayo that he has been having some voiding issues at home. He has been recovering well from his lung status. He has a Mejia catheter in, draining clear urine. Questioning the patient, he really does not have voiding symptoms except that he has what sounds like concealed or buried penis secondary to being uncircumcised and a chubby belly and when he is able to pull the penis out, he denies any voiding symptoms, has nocturia times zero. Has a fairly good stream and feels emptying. On physical exam, he was uncircumcised and he does have a kind of a concealed penis. Testes down the scrotum and decreased in size. Rectal exam deferred. The patient was sitting having lunch. IMPRESSION: Concealed penis and BPH. PLAN: Once catheter was not needed, discontinue Mejia catheter and observe voiding and manage accordingly. Thank you for letting me participate in the care of this patient. We will follow with you. Job ID: [id number] DocumentID: [id number] Dictated Date: 10/07/2019 12:50:38 Mold Closer Helper Date: 10/07/2019 13:01:41 Dictated By: AG DEVRIES MD
--- NOTE | 2019-10-07 14:55 | Occupational Therapy Eval ---
OT Evaluation-General/PLF Medical Diagnosis Admission Date Oct 04, 2019 at 13:40 Medical Diagnosis: acute respiratory failure with hypoxia Onset Date: Oct 04, 2019 Therapy Diagnosis Therapy Diagnosis: Decreased ADL status Height/Weight Height (Feet): 5 Height (Inches): 4.00 Weight (Pounds): 192 Weight (Ounces): 0.9 Precautions Precautions/Isolations: Fall Prevention, Standard Precautions Referral Physician: Ayan Referral Reason: Activity Tolerance, Self Care, Evaluation/Treatment, Strengthening/ROM Medical History Pertinent Medical History: CABG, CAD, HTN, [place] Additional Medical History see nursing and above. Current History Pt d/c from inpt ~2 weeks prior with PNA. Pt admits from home on 10/03 with acute resp failure and sepsis / PNA. Reviewed History: Yes Social History Home: Single Level Current Living Status: Spouse Entry Into Home: Level Entry Steps Into Home: 0 Steps Inside Home: 0 ADL-Prior Level of Function SCALE: Activities may be completed with or without assistive devices. 1-Rabdxnzxvf-jfszhmf completes the activity by him/herself with no assistance from a helper. 5-Set-up or Clean-up Assistance-helper sets up or cleans up; patient completes activity. [place] assists only prior to or following the activity. 4-Supervision or Touching Assistance-helper provides verbal cues and/or touching/steadying and/or contact guard assistance as patient completes activity. Assistance may be provided throughout the activity or intermittently. 3-Partial/Moderate Assistance-helper does LESS THAN HALF the effort. [place] lifts, holds or supports trunk or limbs, but provides less than half the effort. 2-Substantial/Maximal Assistance-helper does MORE THAN HALF the effort. [place] lifts or holds trunk or limbs and provides more than half the effort. 0-Xmblxywwf-turcsi does ALL the effort. Patient does none of the effort to complete the activity. Or, the assistance of 2 or more helpers is required for the patient to complete the activity. If activity was not attempted, code reason: 7-Patient Refused. 9-Not Applicable-not attempted and the patient did not perform the activity befo re the current illness, exacerbation or injury. 10-Not Attempted due to Environmental Limitations-(lack of equipment, weather re straints, etc.). 88-Not Attempted due to Medical Conditions or Safety Concerns. ADL PLOF Comments Pt fx mob with 2WW for 3 weeks, prior level use of SPC. Pt states son and live in home; son assists with BM clean up, showering (all), shower transfers, and min assist with UB dressing, sometimes assist with LB dressing per pt's energy level. Self Care: Needed Some Help Functional Cognition: Independent DME/Equipment: Bath Chair, Shower DME/Equipment Comments 2WW, SPC, sc. in need of gbs. Occupation: retired. Drive Self: Yes OT Current Status Subjective Pt seen in bed asleep, easily wakes. Ox3. Pt denies pain, though stiff. No SOB during activities. Pt agrees to OT eval/ treat. Mental Status/Objective Patient Orientation: Person, Place, Situation, Normal For Age Attachments: Mejia Catheter Current Hand Dominance: Right Upper Extremity ROM B shoulders to less than 90*, L PROM to full range, R PROM to ~110* R elbow AROM minimal, tight biceps/ triceps, full ROM of scapula during RUE movement. Upper Extremity Coordination decreased Bilaterally Upper Extremity Sensation decreased bilateral fingertips and toes per pt. States, "Just since i've been here," Upper Extremity Strength decreased bilaterally ADL-Treatment Eating (QC): 5 (able to eat with L UE per pt, would require min s/u) Shower/Bathe Self (QC): 2 (per pt report and clinical judgment.) Upper Body Dressing (QC): 3 (mod A per clinical judgment) Lower Body Dressing (QC): 3 (min A per clinical judgment, pt able to stand and front/ back. states difficulty with BM clean up/ does not attempt) On/Off Footwear (QC): 4 (SBA EOB) Other Treatments Pt seen in bed. Bed mob to EOB with min A for UB movement/ core strength. Pt completes sock doffing/ donning EOB with SBA. Pt stands and completes UB movement for balance testing- no LOB throughout with BUE movement. Pt states PLOF and states assist with most ADLs. Pt has son who assists. Pt motivated, states tight neck and previous neck surgery with plans for an additional neck surgery as bone graft did not take. Pt's sensation decreased with minimal neurological pattern. Pt's R UE AROM limited, stiff/ tight mms. Pt's LUE limited due to weakness as LUE PROM full range. Pt educated on OT role and all needs met, call light in reach, pt left in bed. Educated on calling nursing if desire to get OOB. Education OT Patient Education: Correct positioning, Progress toward Goal/Update tx plan, Purpose of tx/functional activities, Safety issues Teaching Recipient: Patient Teaching Methods: Demonstration, Discussion Response to Teaching: Verbalize Understanding, Return Demonstration OT Home Health Care Worker Goals Home Health Care Worker Goals Time Frame: Oct 14, 2019 Eating (QC): 5 Oral Hygiene (QC): 6 Toileting Hygiene (QC): 3 Shower/Bathe Self (QC): 3 Upper Body Dressing (QC): 4 Lower Body Dressing (QC): 4 On/Off Footwear (QC): 6 Additional Goals: 1-Demonstrate ADL Tasks, 2-Verbalize Understanding, 3- ImproveStrength/Britney 1=Demonstrate adherence to instructed precautions during ADL tasks. 2=Patient will verbalize/demonstrate understanding of assistive devices/modifications for ADL. 3=Patient will improve strength/tolerance for activity to enable patient to perform ADL's. OT Education/Plan Problem List/Assessment Assessment: Decreased Activ Tolerance, Decreased UE Strength, Dependent Transfers, Impaired Bed Mobility, Impaired Coordination, Impaired Funct Balance, Impaired I ADL's, Impaired Self-Care Skills, Restricted Funct UE ROM Discharge Recommendations Plan/Recommendations: Continue POC Therapy Discharge Recommendati: Scheduled Assistance, Bath Aide, Home & Family, Post Acute OT Equpiment Recommendations-D/C: Rails on Tub/Shower, Validation Analyst, Dressing Stick, Rails on Toilet Treatment Plan/Plan of Care Treatment,Training & Education: Yes Patient would benefit from OT for education, treatment and training to promote independence in ADL's, mobility, safety and/or upper extremity function for ADL's. Plan of Care: ADL Retraining, Caregiver Training, Functional Mobility, UE Funct Exercise/Act Treatment Duration: Oct 14, 2019 Frequency: 5 times per week Estimated Hrs Per Day: .25 hour per day Rehab Potential: Fair Time/GCodes Start Time: 14:20 Stop Time: 14:42 Total Time Billed (hr/min): 22 Billed Treatment Time SAKINA Phillips (22) SAKSHI SIMMONS OTR Oct 07, 2019 14:55
--- NOTE | 2019-10-07 15:51 | NUR ---
IRF Evaluation Order received to evaluate patient for the ARU. Chart review complete and findings discussed with Dr. Mayo - patient accepted. Prior authorization process initiated and clinical information submitted to [employer], for determination. Will continue to follow. Thank you for this referral.
[2019-10-07] MEDS: TEMAZEPAM 15 MG (RESTORIL) CAP PO PRN (21:17)
[2019-10-07] MEDS: ENOXAPARIN 40 MG/0.4 ML (LOVENOX) SYR SC SCH (23:47)
[2019-10-08] VITALS: BP 109/60
[2019-10-08 04:00] VITALS: BP 123/65
[2019-10-08] MEDS: CEFEPIME INJECTION 1,000 MG in WATER (STERILE) FOR INJECTION 10 ML IV SCH ×2 (05:06→11:36)
[2019-10-08 06:04] LABS: BASOPHILS % (AUTO) 0 % (0-10); EOSINOPHILS # (AUTO) 0.3 10^3/uL (0.0-0.3); EOSINOPHILS % (AUTO) 4 % (0-10); HEMATOCRIT 36 % (40-54); HEMOGLOBIN 11.7 G/DL (13.3-17.7); LYMPHOCYTES # (AUTO) 1.8 X 10^3 (1.0-4.0); LYMPHOCYTES % (AUTO) 25 % (12-44); MEAN CORPUSCULAR HEMOGLOBIN 31 PG (25-34); MEAN CORPUSCULAR HGB CONC 32 G/DL (32-36); MEAN CORPUSCULAR VOLUME 97 FL (80-99); MEAN PLATELET VOLUME 10.4 FL (7.4-10.4); MONOCYTES # (AUTO) 0.7 X 10^3 (0.0-1.0); MONOCYTES % (AUTO) 10 % (0-12); NEUTROPHILS # (AUTO) 4.3 X 10^3 (1.8-7.8); NEUTROPHILS % (AUTO) 61 % (42-75); PLATELET COUNT 186 10^3/uL (130-400); RED CELL DISTRIBUTION WIDTH 15.3 % (10.0-14.5); WHITE BLOOD COUNT 7.1 10^3/uL (4.3-11.0)
[2019-10-08 06:09] LABS: CHLORIDE 105 MMOL/L (98-107); POTASSIUM 3.7 MMOL/L (3.6-5.0); SODIUM 141 MMOL/L (135-145)
[2019-10-08 06:11] LABS: CALCIUM 9.8 MG/DL (8.5-10.1); GLUCOSE 94 MG/DL (70-105)
[2019-10-08 06:12] LABS: CARBON DIOXIDE 24 MMOL/L (21-32)
[2019-10-08 06:15] LABS: CREATININE SERUM 0.95 MG/DL (0.60-1.30); GFR ESTIMATED > 60
[2019-10-08 06:16] LABS: BUN/CREATININE RATIO 19
[2019-10-08] MEDS: KCL 20 MEQ TAB (K-DUR) PO SCH (06:30)
[2019-10-08 07:29] VITALS: BP 142/91
[2019-10-08] MEDS: amLODIPine 10 MG (NORVASC) TAB PO SCH (08:01)
[2019-10-08] MEDS: CARVEDILOL 3.125 MG (COREG) TABLET PO SCH (08:01)
[2019-10-08] MEDS: morphine ER 15 MG (MS CONTIN) TAB PO SCH (08:02)
--- NOTE | 2019-10-08 09:13 | Pulmonary Progress Note ---
Subjective Time Seen by a Provider: 09:08 Subjective/Events-last exam No complications noted. Pt is currently on RA. Sepsis Event Evaluation Height, Weight, BMI Height: 5'4.00" Weight: 192lbs. 0.9oz. 87.950297fk; 44.00 BMI Method:Stated Focused Exam Time of Focused Exam: 13:28 Exam Exam Vital Signs Date Time Temp Pulse Resp B/P (MAP) Pulse Ox O2 Delivery O2 Flow Rate FiO2 10/08/19 08:26 Room Air 10/08/19 07:29 36.5 77 18 142/91 (108) 98 Room Air 10/08/19 04:00 36.9 67 20 123/65 (84) 94 Nasal Cannula 2.00 10/08/19 00:00 36.7 71 19 109/60 (76) 94 Nasal Cannula 2.00 10/07/19 21:00 Nasal Cannula 2.00 10/07/19 20:24 36.7 68 18 179/99 (125) 95 Room Air 10/07/19 16:43 36.2 93 17 153/90 (111) 93 Room Air 10/07/19 12:00 36.7 57 18 141/82 (101) 94 Room Air 10/07/19 10:30 Room Air 10/07/19 10:00 36.3 62 18 150/91 (110) 95 Room Air 10/07/19 09:40 93 Room Air I & O 10/08/19 07:00 Intake Total 1460 ml Output Total 1550 ml Balance -90 ml Height & Weight Height: 5'4.00" Weight: 192lbs. 0.9oz. 87.857079zb; 44.00 BMI Method:Stated General Appearance: No Apparent Distress, WD/WN, Chronically ill HEENT: PERRL/EOMI, Normal ENT Inspection, Pharynx Normal, Moist Mucous Membranes Neck: Full Range of Motion, Normal Inspection, Non Tender Respiratory: Chest Non Tender, Lungs Clear, No Accessory Muscle Use, No Respiratory Distress, Decreased Breath Sounds Cardiovascular: Regular Rate, Rhythm, No Edema, No Gallop, No JVD, No Murmur, Normal Peripheral Pulses Capillary Refill: Less Than 3 Seconds Peripheral Pulses: 2+ Radial Pulses (R), 2+ Radial Pulses (L) Gastrointestinal: normal bowel sounds, non tender, soft Extremity: Normal Capillary Refill, Normal Inspection, Normal Range of Motion, Non Tender, No Calf Tenderness, No Pedal Edema Neurologic/Psychiatric: Alert, Oriented x3, No Motor/Sensory Deficits, Normal Mood/Affect Skin: Normal Color, Warm/Dry Lymphatic: No Adenopathy Results Lab Laboratory Tests 10/07/19 02:54 10/08/19 05:50 Assessment/Plan Assessment/Plan PNA with Sepsis -COVID swab is negative -Improving CXR -Marinelli cultures negative thus far -Currently on Cefepime Urinary retention s/p Mejia -Urology consulted Chronic nocturnal hypoxia -Pt uses 2 liters QHS Anemia -Monitor HTN with bradycardia -continue to monitor ST[place] DO Oct 08, 2019 09:13
--- NOTE | 2019-10-08 09:38 | Physical Therapy Daily Note ---
PT Daily Note-Current Transfers SCALE: Activities may be completed with or without assistive devices. 7-Ydifwpszan-dtpdyii completes the activity by him/herself with no assistance from a helper. 5-Set-up or Clean-up Assistance-helper sets up or cleans up; patient completes activity. [place] assists only prior to or following the activity. 4-Supervision or Touching Assistance-helper provides verbal cues and/or touching/steadying and/or contact guard assistance as patient completes activity. Assistance may be provided throughout the activity or intermittently. 3-Partial/Moderate Assistance-helper does LESS THAN HALF the effort. [place] lifts, holds or supports trunk or limbs, but provides less than half the effort. 2-Substantial/Maximal Assistance-helper does MORE THAN HALF the effort. [place] lifts or holds trunk or limbs and provides more than half the effort. 1-Ypwacolgt-flyynd does ALL the effort. Patient does none of the effort to complete the activity. Or, the assistance of 2 or more helpers is required for the patient to complete the activity. If activity was not attempted, code reason: 7-Patient Refused. 9-Not Applicable-not attempted and the patient did not perform the activity before the current illness, exacerbation or injury. 10-Not Attempted due to Environmental Limitations-(lack of equipment, weather restraints, etc.). 88-Not Attempted due to Medical Conditions or Safety Concerns. Weight Bearing Right Lower Extremity: Right Weight Bearing/Tolerated Left Lower Extremity: Left Weight Bearing/Tolerated PT Senior Living Goals Senior Living Goals PT Senior Living Goals Time Frame: Oct 25, 2019 Roll Left & Right (QC): 6 Sit to Lying (QC): 6 Lying-Sitting on Side/Bed(QC): 6 Sit to Stand (QC): 6 Chair/Ngj-uj-Yvxpc Xfer(QC): 6 Toilet Transfer (QC): 6 Car Transfer (QC): 6 Does the Patient Walk: Yes Walk 10 feet (QC): 6 Walk 50ft with 2 Turns (QC): 6 Walk 150 ft (QC): 6 Walking 10ft on Uneven Surface: 6 1 Step (curb) (QC): 6 PT Plan Treatment/Plan Treatment Plan: Bed Mobility, Education, Functional Activity Britney, Functional Strength, Gait, Safety, Therapeutic Exercise, Transfers Treatment Duration: Oct 25, 2019 Frequency: 6 times per week Estimated Hrs Per Day: .25 hour per day Patient and/or Family Agrees t: Yes AMADO COREAS PT Oct 08, 2019 09:38
--- NOTE | 2019-10-08 09:43 | Physical Therapy Daily Note ---
PT Daily Note-Current Subjective Pt presents sitting EOB upon arrival to room, agreeable to PT at this time. Pt reports pain levels of 8/10 in RLE due to "sciatica" Appearance Following treatment, pt is seated in recliner with LEs elevated. Call light and phone within reach, all needs met at this time. Mental Status Patient Orientation: Person, Place, Time, Situation Transfers SCALE: Activities may be completed with or without assistive devices. 1-Zwxjluspno-dwcdiwk completes the activity by him/herself with no assistance from a helper. 5-Set-up or Clean-up Assistance-helper sets up or cleans up; patient completes activity. [place] assists only prior to or following the activity. 4-Supervision or Touching Assistance-helper provides verbal cues and/or touchin g/steadying and/or contact guard assistance as patient completes activity. Assistance may be provided throughout the activity or intermittently. 3-Partial/Moderate Assistance-helper does LESS THAN HALF the effort. [place] lifts, holds or supports trunk or limbs, but provides less than half the effort. 2-Substantial/Maximal Assistance-helper does MORE THAN HALF the effort. [place] lifts or holds trunk or limbs and provides more than half the effort. 2-Kpvyduknl-nxsoyn does ALL the effort. Patient does none of the effort to complete the activity. Or, the assistance of 2 or more helpers is required for the patient to complete the activity. If activity was not attempted, code reason: 7-Patient Refused. 9-Not Applicable-not attempted and the patient did not perform the activity before the current illness, exacerbation or injury. 10-Not Attempted due to Environmental Limitations-(lack of equipment, weather restraints, etc.). 88-Not Attempted due to Medical Conditions or Safety Concerns. Sit to Stand (QC): 5 Chair/Fjh-js-Qovfy Xfer(QC): 5 Weight Bearing Right Lower Extremity: Right Weight Bearing/Tolerated Left Lower Extremity: Left Weight Bearing/Tolerated Gait Training Distance: 300' Walk 10 feet (QC): 5 Walk 50 ft with 2 Turns(QC): 5 Walk 150 ft (QC): 4 Gait Assistive Device: FWW Pt requires CGA for safety due to NBOS and medial heel whip during swing phase bilaterally. Pt requires cues for upright posture throughout gait and cueing to keep walker on ground when turning. Exercises Seated Therapy Exercises: Ankle pumps, Long arc quads, Glut set Seated Reps: 10 Treatments gait, therex Assessment Current Status: Fair Progress Pt is progressing with endurance, still requires cueing for gait cycle and posture PT Promotions Associate Goals Custodial Goals PT Promotions Associate Goals Time Frame: Oct 25, 2019 Roll Left & Right (QC): 6 Sit to Lying (QC): 6 Lying-Sitting on Side/Bed(QC): 6 Sit to Stand (QC): 6 Chair/Wja-qj-Aiwjn Xfer(QC): 6 Toilet Transfer (QC): 6 Car Transfer (QC): 6 Does the Patient Walk: Yes Walk 10 feet (QC): 6 Walk 50ft with 2 Turns (QC): 6 Walk 150 ft (QC): 6 Walking 10ft on Uneven Surface: 6 1 Step (curb) (QC): 6 PT Plan Problem List Problem List: Activity Tolerance, Functional Strength, Safety, Balance, Gait, Transfer Treatment/Plan Treatment Plan: Continue Plan of Care Treatment Plan: Bed Mobility, Education, Functional Activity Britney, Functional Strength, Gait, Safety, Therapeutic Exercise, Transfers Treatment Duration: Oct 25, 2019 Frequency: 6 times per week Estimated Hrs Per Day: .25 hour per day Patient and/or Family Agrees t: Yes Safety Risks/Education Patient Education: Gait Training, Correct Positioning Teaching Recipient: Patient Teaching Methods: Discussion Response to Teaching: Reinforcement Needed Time/GCodes Time In: 911 Time Out: 928 Total Billed Treatment Time: 17 Total Billed Treatment 1 visit gait x 8' therex x 8' AMADO COREAS PT Oct 08, 2019 09:43
[2019-10-08 09:52] VITALS: BP 142/91
--- NOTE | 2019-10-08 10:30 | Occupational Ther Daily Note ---
OT Current Status-Daily Note Subjective Pt seated in recliner, agreeable to OT tx. Pt recalled medical history to this OT talking about past surgeries and scans/tests he has had. Pt did not verbalize pain rating during tx. He also reports he feels lonely and is ready for his family to come see him later today. He wishes he could have 2 visitors at a time/per day instead of just 1. ADL-Treatment Therapy Code Descriptions/Definitions Functional [place] Measure: 0=Not Assessed/NA 4=Minimal Assistance 1=Total Assistance 5=Supervision or Setup 2=Maximal Assistance 6=Modified [place] 3=Moderate Assistance 7=Complete IndependenceSCALE: Activities may be completed with or without assistive devices. 2-Pmrwlhfpfn-oymzqlb completes the activity by him/herself with no assistance from a helper. 5-Set-up or Clean-up Assistance-helper sets up or cleans up; patient completes activity. [place] assists only prior to or following the activity. 4-Supervision or Touching Assistance-helper provides verbal cues and/or touching/steadying and/or contact guard assistance as patient completes activity. Assistance may be provided throughout the activity or intermittently. 3-Partial/Moderate Assistance-helper does LESS THAN HALF the effort. [place] li fts, holds or supports trunk or limbs, but provides less than half the effort. 2-Substantial/Maximal Assistance-helper does MORE THAN HALF the effort. [place] lifts or holds trunk or limbs and provides more than half the effort. 9-Ohiiuthky-nknhop does ALL the effort. Patient does none of the effort to complete the activity. Or, the assistance of 2 or more helpers is required for the patient to complete the activity. If activity was not attempted, code reason: 7-Patient Refused. 9-Not Applicable-not attempted and the patient did not perform the activity before the current illness, exacerbation or injury. 10-Not Attempted due to Environmental Limitations-(lack of equipment, weather restraints, etc.). 88-Not Attempted due to Medical Conditions or Safety Concerns. Oral Hygiene (QC): 5 (set up at tray table, pt able to open toothpaste, squeeze onto toothbrush, and brush his teeth.) Shower/Bathe Self (QC): 7 Other Treatment Pt seated in recliner, talked with this OT about past medical history. He states he would like to shower today but declined at this time. He would prefer to wait until after his family brings him clothes. Pt agreeable to brushing his teeth with mod encouragement. He completed task with set up assist, then requested to complete partial sponge bath of periarea/upper thighs. Pt requested OT to complete task for him, requiring mod encouragement in order for pt to attempt task, he stood at FWW to complete sponge bath with SBA along with SBA for managing underwear up/down. Post OT session, pt seated in recliner, call light in reach and all needs met. Education OT Patient Education: Correct positioning, Energy conservation, Modified ADL techniques, Progress toward Goal/Update tx plan, Purpose of tx/functional activities Teaching Recipient: Patient Teaching Methods: Discussion Response to Teaching: Verbalize Understanding OT Mcfp Goals Mcfp Goals Time Frame: Oct 14, 2019 Eating (QC): 5 Oral Hygiene (QC): 6 Toileting Hygiene (QC): 3 Shower/Bathe Self (QC): 3 Upper Body Dressing (QC): 4 Lower Body Dressing (QC): 4 On/Off Footwear (QC): 6 Additional Goals: 1-Demonstrate ADL Tasks, 2-Verbalize Understanding, 3-Improv eStrength/Britney 1=Demonstrate adherence to instructed precautions during ADL tasks. 2=Patient will verbalize/demonstrate understanding of assistive devices/modifications for ADL. 3=Patient will improve strength/tolerance for activity to enable patient to p erform ADL's. OT Education/Plan Problem List/Assessment Assessment: Decreased Activ Tolerance, Decreased UE Strength, Impaired I ADL's, Impaired Self-Care Skills Discharge Recommendations Plan/Recommendations: Continue POC Treatment Plan/Plan of Care Patient would benefit from OT for education, treatment and training to promote independence in ADL's, mobility, safety and/or upper extremity function for ADL' s. Plan of Care: ADL Retraining, Caregiver Training, Functional Mobility, UE Funct Exercise/Act Treatment Duration: Oct 14, 2019 Frequency: 5 times per week Estimated Hrs Per Day: .25 hour per day Rehab Potential: Fair Time/GCodes Start Time: 09:57 Stop Time: 10:17 Total Time Billed (hr/min): 20 Billed Treatment Time 1, ADL MYNOR PARRA OT Oct 08, 2019 10:30
[2019-10-08 11:00] VITALS: BP 133/61
--- NOTE | 2019-10-08 12:11 | NUR ---
CM/SS: Visited with pt as to plan for discharge Plan: Undetermined at this time Summary: Discuss with pt the option of going to Inpatient Rehabilitation to get stronger and get back on his feet. Pt reports he does not feel as if that is the best idea for him as he, has been working with [facility] as he is to have neck surgery and then back surgery,and that he was also to have a heart cath done due to some history with his heart. Pt would like to go home today and follow up with the heart Dr as well as getting back with [facility] for the neck and back surgery. Son is present today and would like to take pt home. This worker lets pt know we need to do some checking and determine if he can leave today with having the follow up appointments. [facility] is notified of the above information, and pt's status around his not wanting to go to Rehab. This worker will follow up.
[2019-10-08] MEDS: oxyCODONE/APAP 10/325MG (PERCOCET 10) TABLET PO PRN (13:17)
--- NOTE | 2019-10-08 13:30 | NUR ---
Pastoral care visit.
--- NOTE | 2019-10-08 13:51 | NUR ---
CM/SS: Pt to be discharged today to home. Pt will have follow up appts with his primary physician and for Dr Lindsay for his heart, based on a previous appointment that he had scheduled. Son will plan to take pt home.
[2019-10-08] MEDS ORDERED: CEFD300C3 PO (14:02)
[2019-10-08] MEDS ORDERED: AMLO10TA7 PO (14:02)
--- NOTE | 2019-10-08 14:06 | Discharge Summary ---
Discharge Summary Hospital Course Problems/Diagnosis: (1) Sepsis Status: Resolved Resolution Date/Time: 10/07/19 @ 11:06 Assessment & Plan: Secondary to pneumonia. On cefepime and vancomycin with marked improvement in white blood cell count. 10/06 WBC down to normal, afebrile 10/07 remained stable on room air, discharged with cefdinir script for additional 7 days. Qualifiers: Qualified Codes: A41.9 - Sepsis, unspecified organism; R65.20 - Severe sepsis without septic shock; J96.02 - Acute respiratory failure with hypercapnia (2) Pneumonia Status: Acute Assessment & Plan: On cefepime and vancomycin. Still requiring 4 lpm supplemental oxygen, at baseline uses only at night. CXR with right basilar in filtrate. COVID swab x 2 negative (and negative on last admit), antibody pending. 10/06 COVID negative and COVID antibody neg yesterday, continued on cefepime, vancomycin d/c. Improving, down to 2 lpm supplemental oxygen today, transfer to floor. 10/07 on room air, discharged on cefdinir. Qualifiers: Qualified Codes: J18.9 - Pneumonia, unspecified organism (3) CAD (coronary artery disease) Status: Chronic (4) HTN (hypertension) Status: Chronic Qualifiers: Qualified Codes: I10 - Essential (primary) hypertension (5) Acute on chronic respiratory failure with hypoxia Status: Acute (6) Debility Status: Acute Assessment & Plan: IRF consulted and accepted, but patient declined rehab, SNF or home health. Hospital Course Date of Admission: Oct 04, 2019 at 13:40 Admission Diagnosis : Family Physician/Provider: Juan Darden MD Date of Discharge: 10/08/19 Discharge Diagnosis: See problem list Hospital Course: See problem list Labs and Pending Lab Test: Laboratory Tests 10/08/19 05:50: White Blood Count 7.1, Red Blood Count 3.77L, Hemoglobin 11.7L, Hematocrit 36L, Mean Corpuscular Volume 97, Mean Corpuscular Hemoglobin 31, Mean Corpuscular Hemoglobin Concent 32, Red Cell Distribution Width 15.3H, Platelet Count 186, Mean Platelet Volume 10.4, Neutrophils (%) (Auto) 61, Lymphocytes (%) (Auto) 25, Monocytes (%) (Auto) 10, Eosinophils (%) (Auto) 4, Basophils (%) (Auto) 0, Neutrophils # (Auto) 4.3, Lymphocytes # (Auto) 1.8, Monocytes # (Auto) 0.7, Eosinophils # (Auto) 0.3, Basophils # (Auto) 0.0, Sodium Level 141, Potassium Level 3.7, Chloride Level 105, Carbon Dioxide Level 24, Anion Gap 12, Blood Urea Nitrogen 18, Creatinine 0.95, Estimat Glomerular Filtration Rate > 60, BUN/Creatinine Ratio 19, Glucose Level 94, Calcium Level 9.8 Microbiology 10/04/19 MRSA Screen - Final, Complete MRSA not isolated 10/04/19 Blood Culture - Preliminary, Resulted No growth Home Meds Active Cefdinir 300 Mg Capsule 300 Mg PO BID 7 Days Amlodipine Besylate 10 Mg Tablet 10 Mg PO DAILY Reported Bystolic (Nebivolol HCl) 5 Mg Tablet 2.5 Mg PO DAILY TAKES OF A 5MG PT IS STILL CURRENTLY TAKING- WHEN THIS IS FINISHED HE WILL START COREG Coreg (Carvedilol) 12.5 Mg Tablet 12.5 Mg PO BID Morphine Sulfate ER (Morphine Sulfate) 15 Mg Tablet.er 15 Mg PO BID Oxycodone-Acetaminophen 10-325 (Oxycodone HCl/Acetaminophen) 1 Each Tablet 1 Tab PO TID PRN Morphine Sulfate ER (Morphine Sulfate) 30 Mg Tablet.er 30 Mg PO BID PRN One Daily For Men Tablet (Multivits-Minerals/FA/Lycopene) 1 Each Tablet 1 Each PO DAILY Aspirin EC (Aspirin) 325 Mg Tablet.dr 325 Mg PO DAILY Ibuprofen 200 Mg Tablet 600-800 Mg PO Q8H PRN Acetaminophen 500 Mg Tablet 1,000 Mg PO HS PRN Flonase Allergy Relief (Fluticasone Propionate) 9.9 Ml [place].susp 1 [place] NSEACH DAILY PRN Allopurinol 300 Mg Tablet 300 Mg PO DAILY Montelukast Sodium 10 Mg Tablet 10 Mg PO HS Clopidogrel (Clopidogrel Bisulfate) 75 Mg Tablet 75 Mg PO DAILY Sertraline HCl 100 Mg Tablet 150 Mg PO HS TAKES 1 & (100MG) TABS Omeprazole 20 Mg Capsule.dr 20 Mg PO DAILY TAKES MED BEFORE HE EATS Rosuvastatin Calcium 20 Mg Tablet 20 Mg PO HS Temazepam 30 Mg Capsule 30 Mg PO HS Assessment/Pt DC Instructions Follow up with Dr. Darden on 10/12 at 2:30 pm. Discharge Diet: Cardiac Diet Discharge Physical Examination Allergies: Coded Allergies: Penicillins (Verified Allergy, Unknown, Pt has rec Rocephin in the past w/o issue, 09/22/19) niacin (Verified Allergy, Unknown, 12/06/18) General Appearance: No Apparent Distress, WD/WN Respiratory: Lungs Clear, Normal Breath Sounds Cardiovascular: Regular Rate, Rhythm, Systolic Murmur Extremity: No Pedal Edema Skin: Normal Color Neurologic/Psychiatric: Alert, Normal Mood/Affect Copy Copies To 1: SELF,JUAN RODRIGUEZ Clinical Quality Measures DVT/VTE Risk/Contraindication: Risk Factor Score Per Nursin RFS Level Per Nursing on Admit: 4+=Very High YUMIKO KIM MD Oct 08, 2019 14:06
--- NOTE | 2019-10-08 14:55 | NUR ---
FRANCO CURRAN demonstrates understanding of discharge instructions and accurately returns instructions upon questioning. Copy of Post-Discharge Instructions and Medication Discharge Instructions given to PT. FRANCO CURRAN able to manage continuing needs after discharge. Patients belongings returned to pt. Skin dry and intact; no breakdown noted. Patient discharged from 420-1 on at 1455. FRANCO CURRAN left floor via WC, accompanied by STAFF.
[2019-10-08 14:59] VITALS: BP 133/61
== END 2019-10-08 14:55 | disposition home or self-care (01) | DRG 871 ==
LOC: EDUNIT# 11:43 → ER 11:44 → ICU 13:40 → ER 15:16 → ICU 10-06 09:56 → CSD 10-06 12:55 → 4TH 10-07 09:20
PROVIDERS: ADMIT Internal Medicine; ATTEND Family Medicine
DX: A41.9 Sepsis, unspecified organism (principal); J18.9 Pneumonia, unspecified organism; J96.21 Acute and chronic respiratory failure with hypoxia; J96.22 Acute and chronic respiratory failure with hypercapnia; Z68.41 Body mass index [BMI] 40.0-44.9, adult; R65.20 Severe sepsis without septic shock; E66.01 Morbid (severe) obesity due to excess calories; I25.10 Atherosclerotic heart disease of native coronary artery without angina pectoris; I25.2 Old myocardial infarction; I10 Essential (primary) hypertension; N40.1 Benign prostatic hyperplasia with lower urinary tract symptoms; G47.34 Idiopathic sleep related nonobstructive alveolar hypoventilation; R33.9 Retention of urine, unspecified; N48.83 Acquired buried penis; E78.00 Pure hypercholesterolemia, unspecified; K21.9 Gastro-esophageal reflux disease without esophagitis; K44.9 Diaphragmatic hernia without obstruction or gangrene; M19.91 Primary osteoarthritis, unspecified site; D64.9 Anemia, unspecified; F17.220 Nicotine dependence, chewing tobacco, uncomplicated; R00.1 Bradycardia, unspecified; I44.0 Atrioventricular block, first degree; Z95.1 Presence of aortocoronary bypass graft; Z95.5 Presence of coronary angioplasty implant and graft; Z20.828 Contact with and (suspected) exposure to other viral communicable diseases
CPT/HCPCS: 36415; 71045; 80048; 80053; 82805; 83605; 83735; 83880; 84100; 84145; 84484; 85007; 85025; 85027; 85610; 85652; 85730; 86141; 86769; 87040; 87081; 87635; 93005; 94660; 94664; 96361; 96365; 96366; 96375; 99291

== ENCOUNTER → 2019-10-30 | Outpatient (CLI) | payer MEDICARE ==
[~2019-10-30] MED LIST changes: +AMLO10TA7 PO; +CARV12.52 PO; +MORP-68 PO
--- NOTE | 2019-10-30 11:44 | Diagnostic Imaging Report ---
INDICATION: Cough and pneumonia. TIME OF EXAM: 11:33 AM Correlation is made with prior chest from 10/07/2019. FINDINGS: Changes of median sternotomy and CABG are noted. Heart size is stable. There is minimal linear atelectasis or scarring right mid lung, unchanged. No infiltrate, effusion or pneumothorax is seen. There are postoperative changes in the lower cervical spine. IMPRESSION: Stable chest. No acute feature is detected. Dictated by: Dictated on workstation # [id number]
== END ==
LOC: RAD FS 11:22
PROVIDERS: ATTEND Family Medicine
DX: J18.9 Pneumonia, unspecified organism (principal); Z95.1 Presence of aortocoronary bypass graft; Z98.890 Other specified postprocedural states
CPT/HCPCS: 71046

== ENCOUNTER 2019-11-12 11:33 | Emergency (ER) | payer MEDICARE ==
[~2019-11-12] VITALS: Ht 162 cm; Wt 80.0 kg
--- NOTE | 2019-11-12 11:58 | ED General ---
General Chief Complaint: General Problems/Pain Stated Complaint: AMS; WEAKNESS Source of Information: Patient Exam Limitations: No Limitations History of Present Illness Date Seen by Provider: Nov 12, 2019 Time Seen by Provider: 11:50 Initial Comments 64-year-old male presents to the ER by private vehicle without any significant complaints. States he isn't "feeling too bad" and that he was in the hospital 3 weeks ago for pneumonia and has been improving. Also states that than I have been in and out of the hospital quite frequently over the past several months. Denies any recent fever or chills or shortness of air. Denies chest pain or abdominal pain. States his appetite is okay. States his was concerned this morning, but he's not really sure why. She relayed that he was tired and not acting like himself. Allergies and Home Medications Allergies Coded Allergies: JANA Inhibitors (Verified Allergy, Unknown, 11/12/19) Penicillins (Verified Allergy, Unknown, Pt has rec Rocephin in the past w/o issue, 09/22/19) atorvastatin (Verified Allergy, Unknown, 11/12/19) niacin (Verified Allergy, Unknown, 12/06/18) Home Medications Acetaminophen 500 Mg Tablet, 1,000 MG PO HS PRN for PAIN-MILD, (Reported) Allopurinol 300 Mg Tablet, 300 MG PO DAILY, (Reported) Amlodipine Besylate 10 Mg Tablet, 10 MG PO DAILY Prescribed by: YUMIKO KIM on 10/08/19 1402 Aspirin 325 Mg Tablet.dr, 325 MG PO DAILY, (Reported) Carvedilol 12.5 Mg Tablet, 12.5 MG PO BID, (Reported) Cefdinir 300 Mg Capsule, 300 MG PO BID Prescribed by: YUMIKO KIM on 10/08/19 1402 Clopidogrel Bisulfate 75 Mg Tablet, 75 MG PO DAILY, (Reported) Fluticasone Propionate 9.9 Ml [place].susp, 1 SPRAY NSEACH DAILY PRN for CONGESTION, (Reported) Ibuprofen 200 Mg Tablet, 600-800 MG PO Q8H PRN for PAIN-MILD, (Reported) Montelukast Sodium 10 Mg Tablet, 10 MG PO HS, (Reported) Morphine Sulfate 30 Mg Tablet.er, 30 MG PO BID PRN for PAIN-SEVERE, (Reported) Morphine Sulfate 15 Mg Tablet.er, 15 MG PO BID, (Reported) Multivits-Minerals/FA/Lycopene 1 Each Tablet, 1 EACH PO DAILY, (Reported) Nebivolol HCl 5 Mg Tablet, 2.5 MG PO DAILY, (Reported) TAKES OF A 5MG PT IS STILL CURRENTLY TAKING- WHEN THIS IS FINISHED HE WILL START COREG Omeprazole 20 Mg Capsule.dr, 20 MG PO DAILY, (Reported) TAKES MED BEFORE HE EATS Oxycodone HCl/Acetaminophen 1 Each Tablet, 1 TAB PO TID PRN for PAIN-MODERATE, (Reported) Rosuvastatin Calcium 20 Mg Tablet, 20 MG PO HS, (Reported) Sertraline HCl 100 Mg Tablet, 150 MG PO HS, (Reported) TAKES 1 & (100MG) TABS Temazepam 30 Mg Capsule, 30 MG PO HS, (Reported) Patient Home Medication List Home Medication List Reviewed: Yes Review of Systems Review of Systems Constitutional: no symptoms reported Respiratory: cough (resolving); No short of breath Cardiovascular: No chest pain, No palpitations Gastrointestinal: No abdominal pain, No loss of appetite, No nausea, No vomiting Skin: No change in color, No rash Psychiatric/Neurological: Denies Headache, Denies Seizure Past Oicmnzy-Iebeda-Ikom[place] Hx Past Med/Social Hx: Reviewed Nursing Past Med/Soc Hx Patient Social History Alcohol Use: Denies Use Recreational Drug Use: No Type Used: Smokeless Tobacco 2nd Hand Smoke Exposure: No Recent Hopitalizations: No Physical Abuse: No Sexual Abuse: No Fear: No Seasonal Allergies Seasonal Allergies: No Past Medical History Surgeries: Yes CABG, Coronary Stent Respiratory: Yes (Nocturnal Hypoxemia) Cardiac: Yes (Chronic ischemic heart disease) Coronary Artery Disease, Heart Attack, High Cholesterol, Hypertension Neurological: No Genitourinary: No Gastrointestinal: Yes Gastroesophageal Reflux, Hiatal Hernia Musculoskeletal: Yes (Carpal tunnel syndrome, Degenerative Arthritis) Arthritis Endocrine: Yes (Hypercalcemia) HEENT: No Cancer: No Psychosocial: No Integumentary: No Blood Disorders: No Adverse Reaction/Blood Tranf: No Physical Exam Vital Signs Vital Signs - First Documented 11/12/19 11/12/19 11:35 13:03 Temp 37.5 Pulse 94 Resp 16 B/P (MAP) 106/69 (81) Pulse Ox 100 O2 Delivery Room Air Capillary Refill : Height, Weight, BMI Height: 5'4.00" Weight: 192lbs. 0.9oz. [id number]; 44.00 BMI Method:Stated General Appearance: No Apparent Distress, WD/WN HEENT: PERRL/EOMI, Normal ENT Inspection Neck: Non Tender, Supple Respiratory: Lungs Clear, Normal Breath Sounds, No Accessory Muscle Use, No Respiratory Distress Cardiovascular: Regular Rate, Rhythm, No Edema Gastrointestinal: Non Tender, Soft Extremity: Normal Capillary Refill, Non Tender, No Calf Tenderness Neurologic/Psychiatric: Alert, Oriented x3, No Motor/Sensory Deficits, Normal Mood/Affect Focused Exam Lactate Level 11/12/19 12:30: Lactic Acid Level 2.05*H Lactic Acid Level Progress/Results/Core Measures Suspected Sepsis SIRS Temperature: Pulse: Respiratory Rate: Laboratory Tests 11/12/19 12:06: White Blood Count 24.8H Blood Pressure / Mean: 11/12/19 12:30: Lactic Acid Level 2.05*H Laboratory Tests 11/12/19 12:06: Creatinine 1.44H, Platelet Count 223, Total Bilirubin 0.3 Results/Orders Lab Results Laboratory Tests Test 11/12/19 12:06 11/12/19 12:30 Range/Units White Blood Count 24.8 H 4.3-11.0 10^3/uL Red Blood Count 4.07 L 4.35-5.85 10^6/uL Hemoglobin 12.3 L 13.3-17.7 G/DL Hematocrit 39 L 40-54 % Mean Corpuscular Volume 95 80-99 FL Mean Corpuscular Hemoglobin 30 25-34 PG Mean Corpuscular Hemoglobin Concent 32 32-36 G/DL Red Cell Distribution Width 14.7 H 10.0-14.5 % Platelet Count 223 130-400 10^3/uL Mean Platelet Volume 10.2 7.4-10.4 FL Neutrophils (%) (Auto) 89 H 42-75 % Lymphocytes (%) (Auto) 4 L 12-44 % Monocytes (%) (Auto) 6 0-12 % Eosinophils (%) (Auto) 1 0-10 % Basophils (%) (Auto) 0 0-10 % Neutrophils # (Auto) 22.0 H 1.8-7.8 X 10^3 Lymphocytes # (Auto) 1.0 1.0-4.0 X 10^3 Monocytes # (Auto) 1.4 H 0.0-1.0 X 10^3 Eosinophils # (Auto) 0.1 0.0-0.3 10^3/uL Basophils # (Auto) 0.0 0.0-0.1 10^3/uL Neutrophils % (Manual) 80 % Lymphocytes % (Manual) 4 % Monocytes % (Manual) 3 % Eosinophils % (Manual) 0 % Basophils % (Manual) 0 % Band Neutrophils 13 % Blood Morphology Comment NORMAL Sodium Level 139 135-145 MMOL/L Potassium Level 4.9 3.6-5.0 MMOL/L Chloride Level 100 98-107 MMOL/L Carbon Dioxide Level 25 21-32 MMOL/L Anion Gap 14 5-14 MMOL/L Blood Urea Nitrogen 25 H 7-18 MG/DL Creatinine 1.44 H 0.60-1.30 MG/DL Estimat Glomerular Filtration Rate 49 BUN/Creatinine Ratio 17 Glucose Level 143 H 70-105 MG/DL Calcium Level 9.8 8.5-10.1 MG/DL Corrected Calcium 9.6 8.5-10.1 MG/DL Total Bilirubin 0.3 0.1-1.0 MG/DL Aspartate Amino Transf (AST/SGOT) 32 5-34 U/L Alanine Aminotransferase (ALT/SGPT) 27 0-55 U/L Alkaline Phosphatase 79 40-136 U/L Total Protein 8.5 H 6.4-8.2 GM/DL Albumin 4.2 3.2-4.5 GM/DL Lactic Acid Level 2.05 *H 0.50-2.00 MMOL/L My Orders Orders - HELLEN MARTINEZ DO Cbc With Automated Diff (11/12/19 11:54) Comprehensive Metabolic Panel (11/12/19 11:54) Chest 1 View Ap/Pa Only (11/12/19 11:54) Manual Differential (11/12/19 12:06) Blood Culture (11/12/19 12:30) Lactic Acid Analyzer (11/12/19 12:32) Ceftriaxone For Iv Use (Rocephin For I (11/12/19 13:00) Acetaminophen Tablet (Tylenol Tablet) (11/12/19 13:00) Blood Culture (11/12/19 12:56) Medications Given in ED Current Medications Medications Dose Ordered Sig/Krystle Route Start Time Stop Time Status Last Admin Dose Admin Acetaminophen 1,000 mg ONCE ONCE PO 11/12/19 13:00 11/12/19 13:01 DC 11/12/19 13:03 1,000 MG Ceftriaxone Sodium 1000 mg/ Sterile Water 10 ml @ 200 mls/hr ONCE ONCE IV 11/12/19 13:00 11/12/19 13:02 DC 11/12/19 13:03 200 MLS/HR Vital Signs/I&O 11/12/19 11/12/19 11/12/19 11:35 13:03 13:20 Temp 37.5 37.5 Pulse 94 72 Resp 16 16 B/P (MAP) 106/69 (81) 113/69 Pulse Ox 100 99 O2 Delivery Room Air Room Air Capillary Refill : Diagnostic Imaging Diagonstic Imaging: Xray Plain Films/CT/US/NM/MRI: chest Comments IMPRESSION: 1. In the interval since the prior study, vague areas of slightly increased density have developed in the left mid lung. These findings are suspicious for mild acute pneumonia/atelectasis. Clinical follow-up is recommended. 2. The overall appearance of the chest has not changed significantly otherwise. Dictated on workstation # [id number] Dict: 11/12/19 1216 Trans: 11/12/19 1222 [id number] Interpreted by: ANTHONY GARCIA MD Electronically signed by: Departure Impression Primary Impression: Pneumonia Qualified Codes: J18.9 - Pneumonia, unspecified organism Additional Impression: Weakness Disposition: 01 HOME, SELF-CARE Condition: Stable Transfer Transfer Reason: Patient preference Transfer Progress Notes Patient and request admission to [facility]. Where his previous admission 4-22 October this month was. Called [facility] [place] @ 1300h Spoke to Dr Coby Solares @ 1312 she accepts for transfer/admission. Departure-Patient Inst. Referrals: JATINDER FRANKLIN MD (PCP/Family) Primary Care Physician Patient Instructions: Generalized Weakness (DC) HELLEN MARTINEZ DO Nov 12, 2019 11:58
[2019-11-12 12:16] LABS: HEMATOCRIT 39 % (40-54); HEMOGLOBIN 12.3 G/DL (13.3-17.7); MEAN CORPUSCULAR HEMOGLOBIN 30 PG (25-34); MEAN CORPUSCULAR VOLUME 95 FL (80-99); WHITE BLOOD COUNT 24.8 10^3/uL (4.3-11.0)
[2019-11-12 12:17] LABS: BASOPHILS % (AUTO) 0 % (0-10); EOSINOPHILS # (AUTO) 0.1 10^3/uL (0.0-0.3); EOSINOPHILS % (AUTO) 1 % (0-10); LYMPHOCYTES % (AUTO) 4 % (12-44); MEAN CORPUSCULAR HGB CONC 32 G/DL (32-36); MEAN PLATELET VOLUME 10.2 FL (7.4-10.4); MONOCYTES # (AUTO) 1.4 X 10^3 (0.0-1.0); MONOCYTES % (AUTO) 6 % (0-12); NEUTROPHILS % (AUTO) 89 % (42-75); PLATELET COUNT 223 10^3/uL (130-400); RED CELL DISTRIBUTION WIDTH 14.7 % (10.0-14.5)
--- NOTE | 2019-11-12 12:22 | Diagnostic Imaging Report ---
EXAMINATION: PA chest at 11:57 a.m. INDICATION: Weakness. FINDINGS: The heart size is within normal limits and stable when compared to 10/30/2019. The sternotomy wires and surgical clips noted previously are again evident and no different. The linear atelectasis/infiltrate in the right mid lung noted previously is again visualized and quite similar to the prior study. There is also now a small area of increased density in the left mid lung. This may be related to a new focus of pneumonia/atelectasis. The hiatal hernia seen previously is again evident and unchanged. The mediastinum is not widened. The osseous structures are intact. The orthopedic hardware overlying the lower cervical spine is again evident and no different. IMPRESSION: 1. In the interval since the prior study, vague areas of slightly increased density have developed in the left mid lung. These findings are suspicious for mild acute pneumonia/atelectasis. Clinical follow-up is recommended. 2. The overall appearance of the chest has not changed significantly otherwise. Dictated by: Dictated on workstation # [id number]
[2019-11-12 12:33] LABS: BILIRUBIN,TOTAL 0.3 MG/DL (0.1-1.0); CALCIUM 9.8 MG/DL (8.5-10.1); CREATININE SERUM 1.44 MG/DL (0.60-1.30); POTASSIUM 4.9 MMOL/L (3.6-5.0)
[2019-11-12 12:34] LABS: ALBUMIN 4.2 GM/DL (3.2-4.5); TOTAL PROTEIN 8.5 GM/DL (6.4-8.2)
[2019-11-12 12:49] LABS: BAND NEUTROPHILS 13 %; BASOPHILS % (MANUAL) 0 %; EOSINOPHILS % (MANUAL) 0 %; LYMPHOCYTES % (MANUAL) 4 %; MONOCYTES % (MANUAL) 3 %; NEUTROPHILS % (MANUAL) 80 %
[2019-11-12 12:50] LABS: RBC MORPH NORMAL
[2019-11-12] MEDS ORDERED: ACETAMINOPHEN 500 MG TAB (TYLENOL) PO ONE (13:00)
[2019-11-12] MEDS ORDERED: cefTRIAXone FOR IV USE 1,000 MG in WATER (STERILE) FOR INJECTION 10 ML IV ONE (13:00)
[2019-11-12 13:20] VITALS: BP 113/69
--- OUTSIDE RECORDS SUMMARY | 2019-11-12 13:26 | XMS REPORT | Continuity of Care Document ---
Author Organization Unknown Address Unknown Phone Unavailable Allergies Active Description Code Type Severity Reaction Onset Reported/Identified Relationship to Patient Clinical Status Yes niacin [id number] Drug Allergy Unknown N/A 12/06/2018 Yes No Known Drug Allergies [id number] Drug Allergy Unknown N/A 12/06/2018 Yes Penicillins [id number] Drug Aller gy Unknown N/A 12/06/2018 Yes Penicillins [id number] Drug Aller gy Unknown Pt has rec Roce 09/22/2019 Medications There is no data. Problems Date Dx Coded Attending Type Code Diagnosis Diagnosed By 10/05/2018 KARTIK UREÑA DO, Ot I10 ESSENTIAL (PRIMARY) HYPERTENSION 10/05/2018 KARTIK UREÑA DO, Ot I25.10 ATHSCL HEART DISEASE OF [place] CORONARY 10/05/2018 KARTIK UREÑA DO, Ot J01.90 ACUTE SINUSITIS, UNSPECIFIED 10/05/2018 KARTIK UREÑA DO, Ot R09.81 NASAL CONGESTION 10/07/2018 KARTIK UREÑA DO, Ot I10 ESSENTIAL (PRIMARY) HYPERTENSION 10/07/2018 KARTIK UREÑA DO, Ot I25.10 ATHSCL HEART DISEASE OF [place] CORONARY 10/07/2018 KARTIK UREÑA DO, Ot J01.90 [...] MD Ot I25.10 ATHSCL HEART DISEASE OF [place] CORONARY 12/09/2018 YUMIKO KIM MD Ot J18 [...] MD Ot I25.10 ATHSCL HEART DISEASE OF [place] CORONARY 09/17/2019 DAVID RODRIGUEZ, Franck VELASQUEZ Ot [...] Ot I25.1 0 ATHSCL HEART DISEASE OF [place] CORONARY 09/24/2019 DRAKE HANSEN MD Ot I25.2 [...] TO OTH VIRAL COMM 09/24/2019 DRAKE HANSEN MD Ot Z68.3 4 BODY MASS INDEX (BMI) 34.0-34.9, ADULT 09/24/2019 DRAKE HANSEN MD, Ot Z95.1 PRESENCE OF AORTOCORONARY BYPASS GRAFT 09/24/2019 DRAKE HANSEN MD, Ot Z95.5 PRESENCE OF CORONARY ANGIOPLASTY IMPLANT 10/06/2019 DAVID RODRIGUEZ, Franck VELASQUEZ Ot E78.01 FAMILIAL HYPERCHOLESTEROLEMIA 10/06/2019 Franck HERNANDEZ MD, Ot I10 ESSENTIAL (PRIMARY) HYPERTENSION 10/06/2019 Franck HERNANDEZ MD, Ot I25.10 ATHSCL HEART DISEASE OF [place] CORONARY 10/06/2019 Franck HERNANDEZ MD, Ot Z01.810 ENCOUNTER FOR PREPROCEDURAL CARDIOVASCUL 10/06/2019 Franck HERNANDEZ MD, Ot Z72 .0 TOBACCO USE 10/06/2019 YUMIKO KIM MD Ot A41 .9 SEPSIS, UNSPECIFIED ORGANISM 10/06/2019 YUMIKO KIM MD Ot D64 .9 ANEMIA, UNSPECIFIED 10/06/2019 YUMIKO KIM MD Ot E78.00 PURE HYPERCHOLESTEROLEMIA, UNSPECIFIED 10/06/2019 YUMIKO KIM MD Ot F17.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, CHEWING TOBACCO, UN 10/06/2019 YUMIKO KIM MD Ot G47.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 10/06/2019 YUMIKO KIM MD Ot I10 ESSENTIAL (PRIMARY) HYPERTENSION 10/06/2019 YUMIKO KIM MD Ot I25.10 ATHSCL HEART DISEASE OF [place] CORONARY 10/06/2019 YUMIKO KIM MD Ot I25 .2 OLD MYOCARDIAL INFARCTION 10/06/2019 YUMIKO KIM MD Ot I44 .0 ATRIOVENTRICULAR BLOCK, FIRST DEGREE 10/06/2019 YUMIKO KIM MD Ot J18 .9 PNEUMONIA, UNSPECIFIED ORGANISM 10/06/2019 YUMIKO KIM MD Ot K21 .9 GASTRO-ESOPHAGEAL REFLUX DISEASE WITHOUT 10/06/2019 YUMIKO KIM MD Ot K44 .9 DIAPHRAGMATIC HERNIA WITHOUT OBSTRUCTION 10/06/2019 YUMIKO KIM MD Ot M19.91 PRIMARY OSTEOARTHRITIS, UNSPECIFIED SITE 10/06/2019 YUMIKO KIM MD Ot R00 .1 BRADYCARDIA, UNSPECIFIED 10/06/2019 YUMIKO KIM MD Ot R33 .9 RETENTION OF URINE, UNSPECIFIED 10/06/2019 YUMIKO KIM MD Ot Z20.828 CONTACT W AND EXPOSURE TO OTH VIRAL COMM 10/06/2019 YUMIKO KIM MD Ot Z95 .1 PRESENCE OF AORTOCORONARY BYPASS GRAFT 10/06/2019 YUMIKO KIM MD Ot Z95 .5 PRESENCE OF CORONARY ANGIOPLASTY IMPLANT 10/07/2019 Franck HERNANDEZ MD Ot E78.01 FAMILIAL HYPERCHOLESTEROLEMIA 10/07/2019 Franck HERNANDEZ MD, Ot I10 ESSENTIAL (PRIMARY) HYPERTENSION 10/07/2019 Franck HERNANDEZ MD, Ot I25.10 ATHSCL HEART DISEASE OF [place] CORONARY 10/07/2019 Franck HERNANDEZ MD Ot Z01.810 ENCOUNTER FOR PREPROCEDURAL CARDIOVASCUL 10/07/2019 Franck HERNANDEZ MD Ot Z72 .0 TOBACCO USE 10/07/2019 YUMIKO KIM MD Ot A41 .9 SEPSIS, UNSPECIFIED ORGANISM 10/07/2019 YUMIKO KIM MD Ot D64 .9 ANEMIA, UNSPECIFIED 10/07/2019 YUMIKO KIM MD Ot E78.00 PURE HYPERCHOLESTEROLEMIA, UNSPECIFIED 10/07/2019 YUMIKO KIM MD Ot F17.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, CHEWING TOBACCO, UN 10/07/2019 YUMIKO KIM MD Ot G47.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 10/07/2019 YUMIKO KIM MD Ot I10 ESSENTIAL (PRIMARY) HYPERTENSION 10/07/2019 YUMKIO KIM MD Ot I25.10 ATHSCL HEART DISEASE OF [place] CORONARY 10/07/2019 YUMIKO KIM MD Ot I25 .2 OLD MYOCARDIAL INFARCTION 10/07/2019 YUMIKO KIM MD Ot I44 .0 ATRIOVENTRICULAR BLOCK, FIRST DEGREE 10/07/2019 YUMIKO KIM MD Ot J18 .9 PNEUMONIA, UNSPECIFIED ORGANISM 10/07/2019 YUMIKO KIM MD Ot K21 .9 GASTRO-ESOPHAGEAL REFLUX DISEASE WITHOUT 10/07/2019 YUMIKO KIM MD Ot K44 .9 DIAPHRAGMATIC HERNIA WITHOUT OBSTRUCTION 10/07/2019 YUMIKO KIM MD Ot M19.91 PRIMARY OSTEOARTHRITIS, UNSPECIFIED SITE 10/07/2019 YUMIKO KIM MD Ot R00 .1 BRADYCARDIA, UNSPECIFIED 10/07/2019 YUMIKO KIM MD Ot R33 .9 RETENTION OF URINE, UNSPECIFIED 10/07/2019 YUMIKO KIM MD, Ot Z20.828 CONTACT W AND EXPOSURE TO OTH VIRAL COMM 10/07/2019 YUMIKO KIM MD Ot Z95 .1 PRESENCE OF AORTOCORONARY BYPASS GRAFT 10/07/2019 YUMIKO KIM MD Ot Z95 .5 PRESENCE OF CORONARY ANGIOPLASTY IMPLANT 10/07/2019 YUMIKO KIM MD Ot A41 .9 SEPSIS, UNSPECIFIED ORGANISM 10/07/2019 YUMIKO KIM MD Ot D64 .9 ANEMIA, UNSPECIFIED 10/07/2019 YUMIKO KIM MD Ot E66.01 MORBID (SEVERE) OBESITY DUE TO EXCESS CA 10/07/2019 YUMIKO KIM MD Ot E78.00 PURE HYPERCHOLESTEROLEMIA, UNSPECIFIED 10/07/2019 YUMIKO KIM MD Ot F17.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, CHEWING TOBACCO, UN 10/07/2019 YUMIKO KIM MD Ot G47.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 10/07/2019 YUMIKO KIM MD Ot I10 ESSENTIAL (PRIMARY) HYPERTENSION 10/07/2019 YUMIKO KIM MD Ot I25.10 ATHSCL HEART DISEASE OF [place] CORONARY 10/07/2019 YUMIKO KIM MD Ot I25 .2 OLD MYOCARDIAL INFARCTION 10/07/2019 YUIMKO KIM MD Ot I44 .0 ATRIOVENTRICULAR BLOCK, FIRST DEGREE 10/07/2019 YUMIKO KIM MD Ot J18 .9 PNEUMONIA, UNSPECIFIED ORGANISM 10/07/2019 YUMIKO KIM MD Ot J96.01 ACUTE RESPIRATORY FAILURE WITH HYPOXIA 10/07/2019 YUMIKO KIM MD Ot J96.02 ACUTE RESPIRATORY FAILURE WITH HYPERCAPN 10/07/2019 YUMIKO KIM MD Ot K21 .9 GASTRO-ESOPHAGEAL REFLUX DISEASE WITHOUT 10/07/2019 YUMIKO KIM MD Ot K44 .9 DIAPHRAGMATIC HERNIA WITHOUT OBSTRUCTION 10/07/2019 YUMIKO KIM MD Ot M19.91 PRIMARY OSTEOARTHRITIS, UNSPECIFIED SITE 10/07/2019 YUMIKO KIM MD Ot R00 .1 BRADYCARDIA, UNSPECIFIED 10/07/2019 YUMIKO KIM MD, Ot R33 .9 RETENTION OF URINE, UNSPECIFIED 10/07/2019 YUMIKO KIM MD Ot R65.20 SEVERE SEPSIS WITHOUT SEPTIC SHOCK 10/07/2019 YUMIKO KIM MD, Ot Z20.828 CONTACT W AND EXPOSURE TO OTH VIRAL COMM 10/07/2019 YUMIKO KIM MD, Ot Z68.41 BODY MASS INDEX (BMI) 40.0-44.9, ADULT 10/07/2019 YUMIKO KIM MD Ot Z95 .1 PRESENCE OF AORTOCORONARY BYPASS GRAFT 10/07/2019 YUMIKO KIM MD Ot Z95 .5 PRESENCE OF CORONARY ANGIOPLASTY IMPLANT 10/07/2019 YUMIKO KIM MD, Ot A41 .9 SEPSIS, UNSPECIFIED ORGANISM 10/07/2019 YUMIKO KIM MD, Ot D64 .9 ANEMIA, UNSPECIFIED 10/07/2019 YUMIKO KIM MD Ot E66.01 MORBID (SEVERE) OBESITY DUE TO EXCESS CA 10/07/2019 YUMIKO KIM MD Ot E78.00 PURE HYPERCHOLESTEROLEMIA, UNSPECIFIED 10/07/2019 YUMIKO KIM MD Ot F17.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, CHEWING TOBACCO, UN 10/07/2019 YUMIKO KIM MD Ot G47.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 10/07/2019 YUMIKO KIM MD Ot I10 ESSENTIAL (PRIMARY) HYPERTENSION 10/07/2019 YUMIKO KIM MD, Ot I25.10 ATHSCL HEART DISEASE OF [place] CORONARY 10/07/2019 YUMIKO KIM MD Ot I25 .2 OLD MYOCARDIAL INFARCTION 10/07/2019 JULIO MD, YUMIKO N Ot I44 .0 ATRIOVENTRICULAR BLOCK, FIRST DEGREE 10/07/2019 YUMIKO KIM MD, Ot J18 .9 PNEUMONIA, UNSPECIFIED ORGANISM 10/07/2019 YUMIKO KIM MD, Ot J96.01 ACUTE RESPIRATORY FAILURE WITH HYPOXIA 10/07/2019 YUMIKO KIM MD, Ot J96.02 ACUTE RESPIRATORY FAILURE WITH HYPERCAPN 10/07/2019 YUMIKO KIM MD Ot K21 .9 GASTRO-ESOPHAGEAL REFLUX DISEASE WITHOUT 10/07/2019 YUMIKO KIM MD Ot K44 .9 DIAPHRAGMATIC HERNIA WITHOUT OBSTRUCTION 10/07/2019 YUMIKO KIM MD Ot M19.91 PRIMARY OSTEOARTHRITIS, UNSPECIFIED SITE 10/07/2019 YUMIKO KIM MD Ot R00 .1 BRADYCARDIA, UNSPECIFIED 10/07/2019 YUMIKO KIM MD Ot R33 .9 RETENTION OF URINE, UNSPECIFIED 10/07/2019 YUMIKO KIM MD Ot R65.20 SEVERE SEPSIS WITHOUT SEPTIC SHOCK 10/07/2019 YUMIKO KIM MD Ot Z20.828 CONTACT W AND EXPOSURE TO OTH VIRAL COMM 10/07/2019 YUMIKO KIM MD Ot Z68.41 BODY MASS INDEX (BMI) 40.0-44.9, ADULT 10/07/2019 YUMIKO KIM MD, Ot Z95 .1 PRESENCE OF AORTOCORONARY BYPASS GRAFT 10/07/2019 YUMIKO KIM MD Ot Z95 .5 PRESENCE OF CORONARY ANGIOPLASTY IMPLANT 10/08/2019 YUMIKO KIM MD Ot A41 .9 SEPSIS, UNSPECIFIED ORGANISM 10/08/2019 YUMIKO KIM MD Ot D64 .9 ANEMIA, UNSPECIFIED 10/08/2019 YUMIKO KIM MD Ot E66.01 MORBID (SEVERE) OBESITY DUE TO EXCESS CA 10/08/2019 YUMIKO KIM MD Ot E78.00 PURE HYPERCHOLESTEROLEMIA, UNSPECIFIED 10/08/2019 YUMIKO KIM MD Ot F17.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, CHEWING TOBACCO, UN 10/08/2019 YUMIKO KIM MD Ot G47.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 10/08/2019 YUMIKO KIM MD Ot I10 ESSENTIAL (PRIMARY) HYPERTENSION 10/08/2019 YUMIKO KIM MD, Ot I25.10 ATHSCL HEART DISEASE OF [place] CORONARY 10/08/2019 YUMIKO KIM MD, Ot I25 .2 OLD MYOCARDIAL INFARCTION 10/08/2019 YUMIKO KIM MD Ot I44 .0 ATRIOVENTRICULAR BLOCK, FIRST DEGREE 10/08/2019 YUMIKO KIM MD Ot J18 .9 PNEUMONIA, UNSPECIFIED ORGANISM 10/08/2019 YUMIKO KIM MD Ot J96.01 ACUTE RESPIRATORY FAILURE WITH HYPOXIA 10/08/2019 YUMIKO KIM MD, Ot J96.02 ACUTE RESPIRATORY FAILURE WITH HYPERCAPN 10/08/2019 YUMIKO KIM MD Ot K21 .9 GASTRO-ESOPHAGEAL REFLUX DISEASE WITHOUT 10/08/2019 YUMIKO KIM MD Ot K44 .9 DIAPHRAGMATIC HERNIA WITHOUT OBSTRUCTION 10/08/2019 YUMIKO KIM MD Ot M19.91 PRIMARY OSTEOARTHRITIS, UNSPECIFIED SITE 10/08/2019 YUMIKO KIM MD Ot R00 .1 BRADYCARDIA, UNSPECIFIED 10/08/2019 YUMIKO KIM MD Ot R33 .9 RETENTION OF URINE, UNSPECIFIED 10/08/2019 YUMIKO KIM MD Ot R65.20 SEVERE SEPSIS WITHOUT SEPTIC SHOCK 10/08/2019 YUMIKO KIM MD, Ot Z20.828 CONTACT W AND EXPOSURE TO OTH VIRAL COMM 10/08/2019 YUMIKO KIM MD Ot Z68.41 BODY MASS INDEX (BMI) 40.0-44.9, ADULT 10/08/2019 YUMIKO KIM MD Ot Z95 .1 PRESENCE OF AORTOCORONARY BYPASS GRAFT 10/08/2019 YUMIKO KIM MD Ot Z95 .5 PRESENCE OF CORONARY ANGIOPLASTY IMPLANT 10/08/2019 YUMIKO KIM MD Ot A41 .9 SEPSIS, UNSPECIFIED ORGANISM 10/08/2019 YUMIKO KIM MD Ot D64 .9 ANEMIA, UNSPECIFIED 10/08/2019 YUMIKO KIM MD Ot E66.01 MORBID (SEVERE) OBESITY DUE TO EXCESS CA 10/08/2019 YUMIKO KIM MD Ot E78.00 PURE HYPERCHOLESTEROLEMIA, UNSPECIFIED 10/08/2019 YUMIKO KIM MD Ot F17.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, CHEWING TOBACCO, UN 10/08/2019 YUMIKO KIM MD Ot G47.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 10/08/2019 YUMIKO KIM MD, Ot I10 ESSENTIAL (PRIMARY) HYPERTENSION 10/08/2019 YUMIKO KIM MD Ot I25.10 ATHSCL HEART DISEASE OF [place] CORONARY 10/08/2019 YUMIKO KIM MD, Ot I25 .2 OLD MYOCARDIAL INFARCTION 10/08/2019 YUMIKO KIM MD, Ot I44 .0 ATRIOVENTRICULAR BLOCK, FIRST DEGREE 10/08/2019 YUMIKO KIM MD Ot J18 .9 PNEUMONIA, UNSPECIFIED ORGANISM 10/08/2019 YUMIKO KIM MD Ot J96.01 ACUTE RESPIRATORY FAILURE WITH HYPOXIA 10/08/2019 YUMIKO KIM MD Ot J96.02 ACUTE RESPIRATORY FAILURE WITH HYPERCAPN 10/08/2019 YUMIKO KIM MD Ot J96.21 ACUTE AND CHRONIC RESPIRATORY FAILURE [place] 10/08/2019 YUMIKO KIM MD Ot J96.22 ACUTE AND CHRONIC RESPIRATORY FAILURE [place] 10/08/2019 YUMIKO KIM MD Ot K21 .9 GASTRO-ESOPHAGEAL REFLUX DISEASE WITHOUT 10/08/2019 YUMIKO KIM MD Ot K44 .9 DIAPHRAGMATIC HERNIA WITHOUT OBSTRUCTION 10/08/2019 YUMIKO KIM MD Ot M19.91 PRIMARY OSTEOARTHRITIS, UNSPECIFIED SITE 10/08/2019 YUMIKO KIM MD Ot N40 .1 BENIGN PROSTATIC HYPERPLASIA WITH LOWER 10/08/2019 YUMIKO KIM MD Ot N48.83 ACQUIRED BURIED PENIS 10/08/2019 YUMIKO KIM MD Ot R00 .1 BRADYCARDIA, UNSPECIFIED 10/08/2019 YUMIKO KIM MD Ot R33 .9 RETENTION OF URINE, UNSPECIFIED 10/08/2019 YUMIKO KIM MD Ot R65.20 SEVERE SEPSIS WITHOUT SEPTIC SHOCK 10/08/2019 YUMIKO KIM MD Ot Z20.828 CONTACT W AND EXPOSURE TO OTH VIRAL COMM 10/08/2019 YUMIKO KIM MD Ot Z68.41 BODY MASS INDEX (BMI) 40.0-44.9, ADULT 10/08/2019 YUMIKO KIM MD Ot Z95 .1 PRESENCE OF AORTOCORONARY BYPASS GRAFT 10/08/2019 YUMIKO KIM MD Ot Z95 .5 PRESENCE OF CORONARY ANGIOPLASTY IMPLANT 10/22/2019 Franck HERNANDEZ MD, Ot E78.01 FAMILIAL HYPERCHOLESTEROLEMIA 10/22/2019 Franck HERNANDEZ MD, Ot I10 ESSENTIAL (PRIMARY) HYPERTENSION 10/22/2019 Franck HERNANDEZ MD, Ot I25.10 ATHSCL HEART DISEASE OF [place] CORONARY 10/22/2019 Franck HERNANDEZ MD, Ot Z01.810 ENCOUNTER FOR PREPROCEDURAL CARDIOVASCUL 10/22/2019 Franck HERNANDEZ MD, Ot Z72 .0 TOBACCO USE 11/03/2019 JATINDER FRANKLIN MD, Ot J18.9 PNEUMONIA, UNSPECIFIED ORGANISM 11/03/2019 JATINDER FRANKLIN MD, Ot Z95.1 PRESENCE OF AORTOCORONARY BYPASS GRAFT 11/03/2019 JATINDER FRANKLIN MD, Ot Z98.89 0 OTHER SPECIFIED POSTPROCEDURAL STATES Procedures There is no data. Results Test Result Range CMP - 09/03/18 15:25 GLUCOSE 116 mg/dL 65-139 UREA NITROGEN (BUN) 18 mg/dL 7-25 CREATININE 0.86 mg/dL 0.70-1.25 eGFR NON-AFR. GABONESE 91 mL/min/1.73m2 > OR = 60 eGFR [...] 140-400 MPV 10.9 fL 7.5-12.5 ABSOLUTE NEUTROPHILS 39597 cells/uL 1500 -7800 ABSOLUTE MONOCYTES 724 cells/uL [...] 12:57 Sputum Gram stain Mixed Bacterial Ernestina NRG Bacterial sputum culture - 12/07/18 12:5 7 QUANTITY OF GROWTH . NRG Bacterial sputum culture USUAL RESP NR ANEMIA ANALYZER - 12/09/18 05:10 Blood leukocytes [...] NRG Blood erythrocyte morphology finding identification [facility] Blood reticulocytes count (number/volume) 44 10*9/ L [...] OF GROWTH Isolated NRG Bacterial blood culture [id number] NRG SUSCEPTIBILITY NO SUSCEPTIBILITY PERFORMED NRG MRSA SCREEN PLEASE NOTIFY MICROBIOLOGY AT EXT 141 NRG RAPID ID PRELIM RAPID ID TEST AT [facility] 09/22 17:24 NRG MRSA CONFIRMATION IF DR [...] - 09/24/19 05:40 Magnesium 1.8 mg/dL 1.6-2.4 Bacterial blood culture - 10/04/19 12:00 Bacterial blood culture NG NRG Bacterial blood culture - 10/04/19 12:00 Bacterial blood culture NG NRG Arterial blood gas measurement - 0 12:03 [...] protein measurement (mass/v olume) 3.34 mg/dL 0.00-0.50 Coronavirus SARS-CoV-2 SO 2018 - 0 12:30 Coronavirus Ab [Units/volume] in Serum Negative Negative Methicillin resistant Staphylococcus aur eus (MRSA) screening culture - 10/04/19 17:28 Methicillin resistant Staphylococcus aureus (MRSA) scr eening culture NEG NRG Complete blood count (CBC) with automate d white blood cell (WBC) differential - 10/05/19 02:55 Blood leukocytes automated count (number/volume) 15.6 10*3/uL 4.3-11.0 Blood erythrocytes automated count (number/volume) 3.27 10*6/uL 4.35-5.85 Venous blood hemoglobin measurement (mass/volume) 10.2 g/dL 13.3-17.7 Blood hematocrit (volume fraction) 33 % 40-54 Automated erythrocyte mean corpuscular volume 100 [foz_us] 80-99 Automated erythrocyte mean corpuscular h emoglobin (mass per erythrocyte) 31 pg 25-34 Automated erythrocyte mean corpuscular h emoglobin concentration measurement (mass/volume) 31 g/dL 32-36 Automated erythrocyte distribution width ratio 15. 2 % 10.0- 14.5 Automated blood platelet count (count/volume) 175 10*3/uL 130-400 Automated blood platelet mean volume measurement 10.3 [foz_us] 7.4-10.4 Automated blood neutrophils/100 leukocytes 81 % 42-75 Automated blood lymphocytes/100 leukocytes 14 % 12-44 Blood monocytes/100 leukocytes 4 % 0-12 Automated blood eosinophils/100 leukocytes 1 % 0-10 Automated blood basophils/100 leukocytes 0 % 0-10 Blood neutrophils automated count (number/volume) 12.7 10*3 1.8-7.8 Blood lymphocytes automated count (number/volume) 2.1 10*3 1.0-4.0 Blood monocytes automated count (number/volume) 0. 7 10*3 0.0-1.0 Automated eosinophil count 0.1 10*3/uL 0 .0-0.3 Automated blood basophil count (count/volume) 0.0 10*3/uL 0.0-0.1 Whole blood basic metabolic panel - 09/15 05/05 02:55 Serum or plasma sodium measurement (moles/volume) 142 mmol/L 135-145 Serum or plasma potassium measurement (moles/volume) 4.2 mmol/L 3.6-5.0 Serum or plasma chloride measurement (moles/volume) 110 mmol/L 98-107 Carbon dioxide 23 mmol/L 21-32 Serum or plasma anion gap determination (moles/volume) 9 mmol/L 5-14 Serum or plasma urea nitrogen measurement (mass/volume ) 18 mg/dL 7-18 Serum or plasma creatinine measurement (mass/volume) 0.82 mg/dL 0.60-1.30 Serum or plasma urea nitrogen/creatinine mass ratio 22 NRG Serum or plasma creatinine measurement w ith calculation of estimated glomerular filtration rate > NRG Serum or plasma glucose measurement (mass/volume) 95 mg/dL 70-105 Serum or plasma calcium measurement (mass/volume) 8.3 mg/dL 8.5-10.1 Serum or plasma phosphate measurement (m ass/volume) - 10/05/19 02:55 Serum or plasma phosphate measurement (mass/volume) 2.8 mg/dL 2.3-4.7 Magnesium - 10/05/19 02:55 Magnesium 1.8 mg/dL 1.6-2.4 COVID-19 IgG Only 10/05/19 02:55 Coronavirus Ab [Units/volume] in Serum Negative Negative Coronavirus SARS-CoV-2 SO 2018 0 10:55 Coronavirus Ab [Units/volume] in Serum Negative Negative Whole blood basic metabolic panel - 09/15 06/05 02:00 Serum or plasma sodium measurement (moles/volume) 142 mmol/L 135-145 Serum or plasma potassium measurement (moles/volume) 3.9 mmol/L 3.6-5.0 Serum or plasma chloride measurement (moles/volume) 110 mmol/L 98-107 Carbon dioxide 23 mmol/L 21-32 Serum or plasma anion gap determination (moles/volume) 9 mmol/L 5-14 Serum or plasma urea nitrogen measurement (mass/volume ) 15 mg/dL 7-18 Serum or plasma creatinine measurement (mass/volume) 0.79 mg/dL 0.60-1.30 Serum or plasma urea nitrogen/creatinine mass ratio 19 NRG Serum or plasma creatinine measurement w ith calculation of estimated glomerular filtration rate > NRG Serum or plasma glucose measurement (mass/volume) 92 mg/dL 70-105 Serum or plasma calcium measurement (mass/volume) 8.6 mg/dL 8.5-10.1 Complete blood count (CBC) with automate d white blood cell (WBC) differential - 10/06/19 02:00 Blood leukocytes automated count (number/volume) 11.6 10*3/uL 4.3-11.0 Blood erythrocytes automated count (number/volume) 3.15 10*6/uL 4.35-5.85 Venous blood hemoglobin measurement (mass/volume) 9.8 g/dL 13.3-17.7 Blood hematocrit (volume fraction) 31 % 40-54 Automated erythrocyte mean corpuscular volume 99 [ foz_us] 80-99 Automated erythrocyte mean corpuscular h emoglobin (mass per erythrocyte) 31 pg 25-34 Automated erythrocyte mean corpuscular h emoglobin concentration measurement (mass/volume) 32 g/dL 32-36 Automated erythrocyte distribution width ratio 15. 0 % 10.0- 14.5 Automated blood platelet count (count/volume) 174 10*3/uL 130-400 Automated blood platelet mean volume measurement 11.1 [foz_us] 7.4-10.4 Automated blood neutrophils/100 leukocytes 77 % 42-75 Automated blood lymphocytes/100 leukocytes 16 % 12-44 Blood monocytes/100 leukocytes 5 % 0-12 Automated blood eosinophils/100 leukocytes 1 % 0-10 Automated blood basophils/100 leukocytes 0 % 0-10 Blood neutrophils automated count (number/volume) 8.9 10*3 1.8-7.8 Blood lymphocytes automated count (number/volume) 1.9 10*3 1.0-4.0 Blood monocytes automated count (number/volume) 0. 6 10*3 0.0-1.0 Automated eosinophil count 0.1 10*3/uL 0 .0-0.3 Automated blood basophil count (count/volume) 0.0 10*3/uL 0.0-0.1 Serum or plasma phosphate measurement (m ass/volume) - 10/06/19 02:00 Serum or plasma phosphate measurement (mass/volume) 2.8 mg/dL 2.3-4.7 Magnesium - 10/06/19 02:00 Magnesium 1.9 mg/dL 1.6-2.4 Complete blood count (CBC) with automate d white blood cell (WBC) differential - 10/07/19 02:54 Blood leukocytes automated count (number/volume) 8.1 10*3/uL 4.3-11.0 Blood erythrocytes automated count (number/volume) 3.53 10*6/uL 4.35-5.85 Venous blood hemoglobin measurement (mass/volume) 10.9 g/dL 13.3-17.7 Blood hematocrit (volume fraction) 35 % 40-54 Automated erythrocyte mean corpuscular volume 98 [ foz_us] 80-99 Automated erythrocyte mean corpuscular h emoglobin (mass per erythrocyte) 31 pg 25-34 Automated erythrocyte mean corpuscular h emoglobin concentration measurement (mass/volume) 31 g/dL 32-36 Automated erythrocyte distribution width ratio 15. 4 % 10.0- 14.5 Automated blood platelet count (count/volume) 190 10*3/uL 130-400 Automated blood platelet mean volume measurement 10.8 [foz_us] 7.4-10.4 Automated blood neutrophils/100 leukocytes 61 % 42-75 Automated blood lymphocytes/100 leukocytes 28 % 12-44 Blood monocytes/100 leukocytes 7 % 0-12 Automated blood eosinophils/100 leukocytes 4 % 0-10 Automated blood basophils/100 leukocytes 0 % 0-10 Blood neutrophils automated count (number/volume) 4.9 10*3 1.8-7.8 Blood lymphocytes automated count (number/volume) 2.3 10*3 1.0-4.0 Blood monocytes automated count (number/volume) 0. 6 10*3 0.0-1.0 Automated eosinophil count 0.3 10*3/uL 0 .0-0.3 Automated blood basophil count (count/volume) 0.0 10*3/uL 0.0-0.1 Whole blood basic metabolic panel - 09/15 07/03 02:54 Serum or plasma sodium measurement (moles/volume) 142 mmol/L 135-145 Serum or plasma potassium measurement (moles/volume) 3.9 mmol/L 3.6-5.0 Serum or plasma chloride measurement (moles/volume) 106 mmol/L 98-107 Carbon dioxide 25 mmol/L 21-32 Serum or plasma anion gap determination (moles/volume) 11 mmol/L 5-14 Serum or plasma urea nitrogen measurement (mass/volume ) 15 mg/dL 7-18 Serum or plasma creatinine measurement (mass/volume) 0.83 mg/dL 0.60-1.30 Serum or plasma urea nitrogen/creatinine mass ratio 18 NRG Serum or plasma creatinine measurement w ith calculation of estimated glomerular filtration rate > NRG Serum or plasma glucose measurement (mass/volume) 87 mg/dL 70-105 Serum or plasma calcium measurement (mass/volume) 9.5 mg/dL 8.5-10.1 Serum or plasma phosphate measurement (m ass/volume) - 10/07/19 02:54 Serum or plasma phosphate measurement (mass/volume) 3.5 mg/dL 2.3-4.7 Magnesium - 10/07/19 02:54 Magnesium 1.9 mg/dL 1.6-2.4 Complete blood count (CBC) with automate d white blood cell (WBC) differential - 10/08/19 05:50 Blood leukocytes automated count (number/volume) 7.1 10*3/uL 4.3-11.0 Blood erythrocytes automated count (number/volume) 3.77 10*6/uL 4.35-5.85 Venous blood hemoglobin measurement (mass/volume) 11.7 g/dL 13.3-17.7 Blood hematocrit (volume fraction) 36 % 40-54 Automated erythrocyte mean corpuscular volume 97 [ foz_us] 80-99 Automated erythrocyte mean corpuscular h emoglobin (mass per erythrocyte) 31 pg 25-34 Automated erythrocyte mean corpuscular h emoglobin concentration measurement (mass/volume) 32 g/dL 32-36 Automated erythrocyte distribution width ratio 15. 3 % 10.0- 14.5 Automated blood platelet count (count/volume) 186 10*3/uL 130-400 Automated blood platelet mean volume measurement 10.4 [foz_us] 7.4-10.4 Automated blood neutrophils/100 leukocytes 61 % 42-75 Automated blood lymphocytes/100 leukocytes 25 % 12-44 Blood monocytes/100 leukocytes 10 % 0-12 Automated blood eosinophils/100 leukocytes 4 % 0-10 Automated blood basophils/100 leukocytes 0 % 0-10 Blood neutrophils automated count (number/volume) 4.3 10*3 1.8-7.8 Blood lymphocytes automated count (number/volume) 1.8 10*3 1.0-4.0 Blood monocytes automated count (number/volume) 0. 7 10*3 0.0-1.0 Automated eosinophil count 0.3 10*3/uL 0 .0-0.3 Automated blood basophil count (count/volume) 0.0 10*3/uL 0.0-0.1 Whole blood basic metabolic panel - 09/15 08/03 05:50 Serum or plasma sodium measurement (moles/volume) 141 mmol/L 135-145 Serum or plasma potassium measurement (moles/volume) 3.7 mmol/L 3.6-5.0 Serum or plasma chloride measurement (moles/volume) 105 mmol/L 98-107 Carbon dioxide 24 mmol/L 21-32 Serum or plasma anion gap determination (moles/volume) 12 mmol/L 5-14 Serum or plasma urea nitrogen measurement (mass/volume ) 18 mg/dL 7-18 Serum or plasma creatinine measurement (mass/volume) 0.95 mg/dL 0.60-1.30 Serum or plasma urea nitrogen/creatinine mass ratio 19 NRG Serum or plasma creatinine measurement w ith calculation of estimated glomerular filtration rate > NRG Serum or plasma glucose measurement (mass/volume) 94 mg/dL 70-105 Serum or plasma calcium measurement (mass/volume) 9.8 mg/dL 8.5-10.1 - PANEL (PROFILE 1) - 10/30/19 12 :46 Prescribed Drug 1 Oxycodone NRG Creatinine 137.2 mg/dL > or = 20.0 pH 7.2 4.5-9.0 Oxidant NEGATIVE mcg/mL <200 Amphetamines NEGATIVE ng/mL <500 medMATCH Amphetamines CONSISTENT NRG Benzodiazepines POSITIVE ng/mL <100 Marijuana Metabolite NEGATIVE ng/mL <20 medMATCH Marijuana Metab CONSISTENT NRG Cocaine Metabolite NEGATIVE ng/mL <150 medMATCH Cocaine Metab CONSISTENT NRG Opiates POSITIVE ng/mL <100 Oxycodone NEGATIVE ng/mL <100 medMATCH Oxycodone INCONSISTENT NRG COMMENT NRG Alphahydroxyalprazolam 96 ng/mL <25 medMATCH aOH alprazolam INCONSISTENT NR G Alphahydroxymidazolam NEGATIVE ng/mL < 50 medMATCH aOH midazolam CONSISTENT NRG Alphahydroxytriazolam NEGATIVE ng/mL < 50 medMATCH aOH triazolam CONSISTENT NRG Aminoclonazepam NEGATIVE ng/mL <25 medMATCH Aminoclonazepam CONSISTENT NRG Hydroxyethylflurazepam NEGATIVE ng/mL <50 medMATCH OH,Et flurazepam CONSISTENT NR G Lorazepam NEGATIVE ng/mL <50 medMATCH Lorazepam CONSISTENT NRG Nordiazepam NEGATIVE ng/mL <50 medMATCH Nordiazepam CONSISTENT NRG Oxazepam NEGATIVE ng/mL <50 medMATCH Oxazepam CONSISTENT NRG Temazepam 629 ng/mL <50 medMATCH Temazepam CONSISTENT NRG Codeine NEGATIVE ng/mL <50 medMATCH Codeine CONSISTENT NRG Hydrocodone NEGATIVE ng/mL <50 medMATCH Hydrocodone CONSISTENT NRG Hydromorphone 210 ng/mL <50 medMATCH Hydromorphone CONSISTENT NRG Morphine >68954 ng/mL <50 medMATCH Morphine CONSISTENT NRG Norhydrocodone NEGATIVE ng/mL <50 medMATCH Norhydrocodone CONSISTENT NRG Prescribed Drug 2 Morphine NRG Prescribed Drug 3 Temazepam NRG Barbiturates NEGATIVE ng/mL <300 medMATCH Barbiturates CONSISTENT NRG Methadone Metabolite NEGATIVE ng/mL <100 medMATCH Methadone Metab CONSISTENT NRG Phencyclidine NEGATIVE ng/mL <25 medMATCH Phencyclidine CONSISTENT NRG Encounters ACCT No. Visit Date/Time Discharge Status Pt. Type Provider Facility Loc./Unit Complaint [id number] 10/13/2019 14:30:00 10/13/2019 23:59: 59 CLS Outpatient [facility] [id number] 10/30/2019 10:30:00 Document Registration [id number] 09/05/2018 15:00:00 Document Registration [id number] 09/03/2018 14:15:00 Document Registration [id number] 10/30/2019 11:22:00 23:59:59 CLS Outpatient JATINDER FRANKLIN MD [facility] RAD FS J18.9 [id number] 10/04/2019 13:40:00 14:55:00 DIS Inpatient YUMIKO KIM MD [facility] 4TH PNA,SEPSIS,ACUTE RESP FAILURE,HYPERCAPNIA,HYPOXEMI [id number] 09/22/2019 11:57:00 15:00:00 DIS Inpatient DRAKE HANSEN MD [facility] 4TH BILAT PNA;COVID-19 PUI [id number] 09/18/2019 11:06:00 23:59:59 CLS Outpatient Franck HERNANDEZ MD [facility] CARD PREOP EXAM [id number] 09/15/2019 13:57:00 23:59:59 CLS Outpatient Franck HERNANDEZ MD [facility] CARD PREOP EXAM [id number] 04/07/2019 14:50:00 23:59:59 CLS Outpatient JATINDER FRANKLIN MD [facility] RAD FS J20.8 [id number] 01/20/2019 11:14:00 23:59:59 CLS Outpatient SHANNAN RODRIGUEZ, ROXIE Daniels [facility] RAD FS RADICULOPATHY [id number] 12/06/2018 15:45:00 12:20:00 DIS Inpatient JULIO RODRIGUEZ, YUMIKO Bautista [facility] 4TH PNA,ACUTE RESP DISTRESS [id number] 11/13/2018 10:49:00 23:59:59 CLS Preadmit RIGOBERTO RODRIGUEZ, JATINDER [facility] RAD RADICULAR SYNDROME OF R IGHT LEG [id number] 10/05/2018 22:12:00 22:57:00 DIS Emergency KARTIK UREÑA DO [facility] ER FS TROUBLE BREATHING [id number] 09/29/2019 13:24:01 ACT Unknown
== END 2019-11-12 13:50 | disposition home or self-care (01) ==
LOC: EDUNIT# 11:33 → ER FS 11:34
DX: J18.9 Pneumonia, unspecified organism (principal); I10 Essential (primary) hypertension; I25.2 Old myocardial infarction; E78.00 Pure hypercholesterolemia, unspecified; K21.9 Gastro-esophageal reflux disease without esophagitis; I25.10 Atherosclerotic heart disease of native coronary artery without angina pectoris; Z88.0 Allergy status to penicillin; Z88.8 Allergy status to other drugs, medicaments and biological substances; Z79.82 Long term (current) use of aspirin; Z79.02 Long term (current) use of antithrombotics/antiplatelets; Z79.51 Long term (current) use of inhaled steroids; Z95.5 Presence of coronary angioplasty implant and graft; Z95.1 Presence of aortocoronary bypass graft
CPT/HCPCS: 36415; 71045; 80053; 83605; 85007; 85027; 87040

== ENCOUNTER → 2020-01-01 | Outpatient (CLI) | payer MEDICARE ==
[~2020-01-01] MED LIST changes: -OXYC-465 PO; +OXYC-556 PO
--- NOTE | 2020-01-01 11:16 | Diagnostic Imaging Report ---
INDICATION: Weakness. Comparison made with prior examination from 11/12/2019. FINDINGS: Heart size is stable. Is been previous median sternotomy. Some left basilar subsegmental atelectasis and/or pneumonitis. There is no pleural effusion or pneumothorax. The mediastinum is unremarkable. IMPRESSION: Left basilar subsegmental atelectasis and/or pneumonitis. Dictated by: Dictated on workstation # [id number]
== END ==
LOC: RAD FS 10:37
PROVIDERS: ATTEND Family Medicine
DX: J16.8 Pneumonia due to other specified infectious organisms (principal); Z20.828 Contact with and (suspected) exposure to other viral communicable diseases
CPT/HCPCS: 71046

== ENCOUNTER 2020-02-26 10:16 | Emergency (ER) | payer MEDICARE ==
[~2020-02-26] VITALS: Ht 165.1 cm; Wt 81.8 kg
[~2020-02-26 10:16] MED LIST changes: +AMLO-251 PO; -AMLO10TA7 PO
[2020-02-26] MEDS ORDERED: NS IV 1000 ML 1,000 ML ONE (10:52)
[2020-02-26 10:58] LABS: BASOPHILS % (AUTO) 0 % (0-10); EOSINOPHILS # (AUTO) 0.2 10^3/uL (0.0-0.3); EOSINOPHILS % (AUTO) 1 % (0-10); HEMATOCRIT 30 % (40-54); HEMOGLOBIN 8.8 G/DL (13.3-17.7); LYMPHOCYTES % (AUTO) 7 % (12-44); MEAN CORPUSCULAR HEMOGLOBIN 27 PG (25-34); MEAN CORPUSCULAR HGB CONC 30 G/DL (32-36); MEAN CORPUSCULAR VOLUME 92 FL (80-99); MEAN PLATELET VOLUME 10.6 FL (7.4-10.4); MONOCYTES % (AUTO) 7 % (0-12); NEUTROPHILS # (AUTO) 12.4 X 10^3 (1.8-7.8); NEUTROPHILS % (AUTO) 85 % (42-75); PLATELET COUNT 205 10^3/uL (130-400); WHITE BLOOD COUNT 14.7 10^3/uL (4.3-11.0)
[2020-02-26] MEDS ORDERED: NS IV 500 ML 500 ML IV SCH ×2 (11:00→11:15)
[2020-02-26] MEDS ORDERED: LEVOFLOXACIN 750 MG/150 ML IV 150 ML IV ONE (11:00)
--- NOTE | 2020-02-26 11:02 | ED Cough/URI ---
General Chief Complaint: Respiratory Problems Stated Complaint: FEVER; LETHARGY; COUGH History of Present Illness Date Seen by Provider: Feb 26, 2020 Time Seen by Provider: 10:45 Initial Comments 64-year-old male presents with cough and fever for the past couple days. Patient states he had COVID in October and was admitted to the hospital at [facility]. States that his symptoms resolved and he has not had any problems since. Poor historian, wears oxygen at bedtime (not during day). Denies Hx lung disease. Allergies and Home Medications Allergies Coded Allergies: JANA Inhibitors (Verified Allergy, Unknown, 11/12/19) Penicillins (Verified Allergy, Unknown, Pt has rec Rocephin in the past w/o issue, 09/22/19) atorvastatin (Verified Allergy, Unknown, 11/12/19) niacin (Verified Allergy, Unknown, 12/06/18) Home Medications Acetaminophen 500 Mg Tablet, 1,000 MG PO HS PRN for PAIN-MILD, (Reported) Allopurinol 300 Mg Tablet, 300 MG PO DAILY, (Reported) Amlodipine Besylate 10 Mg Tablet, 10 MG PO DAILY Prescribed by: YUMIKO KIM on 10/08/19 1402 Aspirin 325 Mg Tablet.dr, 325 MG PO DAILY, (Reported) Carvedilol 12.5 Mg Tablet, 12.5 MG PO BID, (Reported) Cefdinir 300 Mg Capsule, 300 MG PO BID Prescribed by: YUMIKO KIM on 10/08/19 1402 Clopidogrel Bisulfate 75 Mg Tablet, 75 MG PO DAILY, (Reported) Fluticasone Propionate 9.9 Ml [place].susp, 1 SPRAY NSEACH DAILY PRN for CONGESTION, (Reported) Ibuprofen 200 Mg Tablet, 600-800 MG PO Q8H PRN for PAIN-MILD, (Reported) Montelukast Sodium 10 Mg Tablet, 10 MG PO HS, (Reported) Morphine Sulfate 30 Mg Tablet.er, 30 MG PO BID PRN for PAIN-SEVERE, (Reported) Morphine Sulfate 15 Mg Tablet.er, 15 MG PO BID, (Reported) Multivits-Minerals/FA/Lycopene 1 Each Tablet, 1 EACH PO DAILY, (Reported) Nebivolol HCl 5 Mg Tablet, 2.5 MG PO DAILY, (Reported) TAKES OF A 5MG PT IS STILL CURRENTLY TAKING- WHEN THIS IS FINISHED HE WILL START COREG Omeprazole 20 Mg Capsule.dr, 20 MG PO DAILY, (Reported) TAKES MED BEFORE HE EATS Oxycodone HCl/Acetaminophen 1 Each Tablet, 1 TAB PO TID PRN for PAIN-MODERATE, (Reported) Rosuvastatin Calcium 20 Mg Tablet, 20 MG PO HS, (Reported) Sertraline HCl 100 Mg Tablet, 150 MG PO HS, (Reported) TAKES 1 & (100MG) TABS Temazepam 30 Mg Capsule, 30 MG PO HS, (Reported) Patient Home Medication List Home Medication List Reviewed: Yes Review of Systems Review of Systems Constitutional: fever, malaise EENTM: no symptoms reported Respiratory: cough; No hemoptysis, No short of breath, No stridor, No wheezing Cardiovascular: No chest pain, No edema, No palpitations Gastrointestinal: No abdominal pain, No diarrhea, No loss of appetite, No nausea, No vomiting Musculoskeletal: No back pain, No joint pain Skin: No change in color, No rash Psychiatric/Neurological: Denies Numbness, Denies Paresthesia, Denies Weakness Past Jceyvdb-Dtcprk-Pcnudu Hx Past Med/Social Hx: Reviewed Nursing Past Med/Soc Hx Patient Social History Type Used: Smokeless Tobacco 2nd Hand Smoke Exposure: No Recent Foreign Travel: No Contact w/Someone Who Travel: No Recent Hopitalizations: No Seasonal Allergies Seasonal Allergies: No Past Medical History Surgeries: Yes CABG, Coronary Stent Respiratory: Yes (Nocturnal Hypoxemia) Cardiac: Yes (Chronic ischemic heart disease) Coronary Artery Disease, Heart Attack, High Cholesterol, Hypertension Neurological: No Genitourinary: No Gastrointestinal: Yes Gastroesophageal Reflux, Hiatal Hernia Musculoskeletal: Yes (Carpal tunnel syndrome, Degenerative Arthritis) Arthritis Endocrine: Yes (Hypercalcemia) HEENT: No Cancer: No Psychosocial: No Integumentary: No Blood Disorders: No Adverse Reaction/Blood Tranf: No Physical Exam Vital Signs - First Documented Capillary Refill : Height: 5'4.00" Weight: 192lbs. 0.9oz. 87.714569jf; 30.00 BMI Method:Stated General Appearance: WD/WN, no apparent distress HEENT: PERRL/EOMI, normal ENT inspection Neck: non-tender, full range of motion Respiratory: chest non-tender, no respiratory distress, no accessory muscle use; No decreased breath sounds, No accessory muscle use; rales; No wheezing Cardiovascular: regular rate, rhythm, no edema, no gallop, no JVD Gastrointestinal: non tender, soft; No distended, No guarding, No rebound, No tenderness Extremities: normal range of motion, non-tender, normal inspection, no pedal edema Neurologic/Psychiatric: no motor/sensory deficits, alert, normal mood/affect, oriented x 3 Skin: normal color, warm/dry Focused Exam Lactate Level 02/26/20 10:48: Lactic Acid Level 2.63*H Lactic Acid Level Laboratory Tests Test 02/26/20 10:48 Lactic Acid Level 2.63 MMOL/L (0.50-2.00) *H Progress/Results/Core Measures Suspected Sepsis SIRS Temperature: Pulse: Respiratory Rate: Laboratory Tests 02/26/20 10:48: White Blood Count 14.7H Blood Pressure / Mean: 02/26/20 10:48: Lactic Acid Level 2.63*H Laboratory Tests 02/26/20 10:48: Creatinine 1.13, Platelet Count 205, Total Bilirubin 0.3 Results/Orders Lab Results Laboratory Tests Test 02/26/20 10:48 Range/Units White Blood Count 14.7 H 4.3-11.0 10^3/uL Red Blood Count 3.24 L 4.35-5.85 10^6/uL Hemoglobin 8.8 L 13.3-17.7 G/DL Hematocrit 30 L 40-54 % Mean Corpuscular Volume 92 80-99 FL Mean Corpuscular Hemoglobin 27 25-34 PG Mean Corpuscular Hemoglobin Concent 30 L 32-36 G/DL Red Cell Distribution Width 15.5 H 10.0-14.5 % Platelet Count 205 130-400 10^3/uL Mean Platelet Volume 10.6 H 7.4-10.4 FL Immature Granulocyte % (Auto) 0 % Neutrophils (%) (Auto) 85 H 42-75 % Lymphocytes (%) (Auto) 7 L 12-44 % Monocytes (%) (Auto) 7 0-12 % Eosinophils (%) (Auto) 1 0-10 % Basophils (%) (Auto) 0 0-10 % Neutrophils # (Auto) 12.4 H 1.8-7.8 X 10^3 Lymphocytes # (Auto) 1.0 1.0-4.0 X 10^3 Monocytes # (Auto) 1.0 0.0-1.0 X 10^3 Eosinophils # (Auto) 0.2 0.0-0.3 10^3/uL Basophils # (Auto) 0.0 0.0-0.1 10^3/uL Immature Granulocyte # (Auto) 0.1 0.0-0.1 10^3/uL Neutrophils % (Manual) 86 % Lymphocytes % (Manual) 8 % Monocytes % (Manual) 5 % Eosinophils % (Manual) 1 % Poikilocytosis SLIGHT Spherocytes SLIGHT Sodium Level 136 135-145 MMOL/L Potassium Level 4.4 3.6-5.0 MMOL/L Chloride Level 101 98-107 MMOL/L Carbon Dioxide Level 24 21-32 MMOL/L Anion Gap 11 5-14 MMOL/L Blood Urea Nitrogen 24 H 7-18 MG/DL Creatinine 1.13 0.60-1.30 MG/DL Estimat Glomerular Filtration Rate > 60 BUN/Creatinine Ratio 21 Glucose Level 154 H 70-105 MG/DL Lactic Acid Level 2.63 *H 0.50-2.00 MMOL/L Calcium Level 8.7 8.5-10.1 MG/DL Corrected Calcium 9.0 8.5-10.1 MG/DL Total Bilirubin 0.3 0.1-1.0 MG/DL Aspartate Amino Transf (AST/SGOT) 16 5-34 U/L Alanine Aminotransferase (ALT/SGPT) 15 0-55 U/L Alkaline Phosphatase 61 40-136 U/L Total Protein 7.2 6.4-8.2 GM/DL Albumin 3.6 3.2-4.5 GM/DL Procalcitonin 0.28 H <0.10 NG/ML My Orders Orders - HELLEN MARTINEZ DO Ed Iv/Invasive Line Start (02/26/20 10:25) Chest 1 View Ap/Pa Only (02/26/20 10:25) Cbc With Automated Diff (02/26/20 10:42) Comprehensive Metabolic Panel (02/26/20 10:42) Lactic Acid Analyzer (02/26/20 10:42) Ns Iv 1000 Ml (Sodium Chloride 0.9%) (02/26/20 10:52) Procalcitonin (Pct) (02/26/20 10:56) Blood Culture (02/26/20 10:56) Ns Iv 500 Ml (Sodium Chloride 0.9%) (02/26/20 11:00) Levofloxacin 750 Mg/150 Ml Iv (Levaquin (02/26/20 11:00) Manual Differential (02/26/20 10:48) Blood Culture (02/26/20 10:55) Ns Iv 500 Ml (Sodium Chloride 0.9%) (02/26/20 11:15) Medications Given in ED Current Medications Medications Dose Ordered Sig/Krystle Route Start Time Stop Time Status Last Admin Dose Admin Levofloxacin/ Dextrose 150 ml @ 100 mls/hr ONCE ONCE IV 02/26/20 11:00 02/26/20 12:29 DC 02/26/20 11:45 100 MLS/HR Vital Signs/I&O 02/26/20 02/26/20 02/26/20 10:30 10:30 12:50 Temp 36.4 36.4 36.4 Pulse 82 82 74 Resp 18 18 18 B/P (MAP) 94/56 94/56 (69) 98/58 (69) Pulse Ox 92 92 92 O2 Delivery Nasal Cannula Nasal Cannula Nasal Cannula O2 Flow Rate 2.00 2.00 2.00 Capillary Refill : Diagnostic Imaging Diagonstic Imaging: Xray Plain Films/CT/US/NM/MRI: chest Comments Date of Exam:02/26/20 CHEST 1 VIEW AP/PA ONLY EXAMINATION: Chest 1 view AP/PA only. INDICATION: Fever and cough. COMPARISON: 01/01/2020 FINDINGS: New right mid and upper lung zone consolidations. No pleural effusion or pneumothorax. Stable cardiomegaly. Hiatal hernia is unchanged. IMPRESSION: 1. New right upper lobe consolidations are most likely due to pneumonia. Dictated on workstation # [id number] Dict: 02/26/20 1058 Trans: 02/26/20 1102 [facility] [id number] Interpreted by: ARPITA YOUNG MD Electronically signed by: Departure Impression Primary Impression: Pneumonia Qualified Codes: J18.9 - Pneumonia, unspecified organism Disposition: XFER SHT-TRM HOSP Condition: Stable Transfer Transfer Reason: Patient preference (Patient refuses admission to [facility]) Time Spoke to Accepting Phy: 11:[address] Sharp accepts for transfer to [facility] @ 1144 Method of Transfer: EMS Departure-Patient Inst. Referrals: JATINDER FRANKLIN MD (PCP/Family) Primary Care Physician HELLEN MARTINEZ DO Feb 26, 2020 11:02
[2020-02-26 11:18] LABS: CHLORIDE 101 MMOL/L (98-107); POTASSIUM 4.4 MMOL/L (3.6-5.0); SODIUM 136 MMOL/L (135-145)
[2020-02-26 11:19] LABS: ALANINE AMINOTRANSFERASE 15 U/L (0-55); ALBUMIN 3.6 GM/DL (3.2-4.5); ALKALINE PHOSPHATASE 61 U/L (40-136); BILIRUBIN,TOTAL 0.3 MG/DL (0.1-1.0); BUN/CREATININE RATIO 21; CALCIUM 8.7 MG/DL (8.5-10.1); CARBON DIOXIDE 24 MMOL/L (21-32); CREATININE SERUM 1.13 MG/DL (0.60-1.30); GFR ESTIMATED > 60; GLUCOSE 154 MG/DL (70-105); TOTAL PROTEIN 7.2 GM/DL (6.4-8.2)
[2020-02-26 11:26] LABS: EOSINOPHILS % (MANUAL) 1 %; LYMPHOCYTES % (MANUAL) 8 %; MONOCYTES % (MANUAL) 5 %; NEUTROPHILS % (MANUAL) 86 %; POIKILOCYTOSIS SLIGHT
[2020-02-26 11:27] LABS: SPHEROCYTES SLIGHT
--- NOTE | 2020-02-26 11:43 | NUR ---
Report was given to SILVIO Stevenson at this time. Care was transferred.
[2020-02-26 12:50] VITALS: BP 98/58
== END 2020-02-26 12:50 | disposition short-term general hospital (02) ==
LOC: EDUNIT# 10:16 → ER FS 10:18
DX: J18.9 Pneumonia, unspecified organism (principal); I25.2 Old myocardial infarction; K21.9 Gastro-esophageal reflux disease without esophagitis; E78.00 Pure hypercholesterolemia, unspecified; I10 Essential (primary) hypertension; I25.10 Atherosclerotic heart disease of native coronary artery without angina pectoris; Z95.1 Presence of aortocoronary bypass graft; Z95.5 Presence of coronary angioplasty implant and graft; Z88.0 Allergy status to penicillin; Z88.8 Allergy status to other drugs, medicaments and biological substances; Z79.82 Long term (current) use of aspirin
CPT/HCPCS: 36415; 71045; 80053; 83605; 84145; 85007; 85027; 87040

== ENCOUNTER 2020-04-01 07:38 | Emergency (ER) | payer MEDICARE ==
[~2020-04-01 07:38] MED LIST changes: -MONT10TA26 PO; +MONT10TA97 PO
--- NOTE | 2020-04-01 08:11 | ED CPR ---
HPI-CPR General Chief Complaint: Code Blue Stated Complaint: CODE BLACK Source of Information: EMS Exam Limitations: Other (actively being coded on arrival) History of Present Illness Date Seen by Provider: Apr 01, 2020 Time Seen by Provider: 07:38 Initial Comments 64 yo male brought by EMS from home. EMS was activated this am for pt being unresponsive and dispatched shortly after 7 am. Fire started CPR on arrival and the ACLS unit arrived and he was in asystole when he was placed on monitor. He was intubated and an IO was started when unable to get IV access. He had 2 doses of epinephrine and continued with ACLS protocol but was still in asystole on arrival to ED. CPR was continued initially as he had just gotten epinephrine and the ETT was confirmed with equal breath sounds. He still had no spontaneous pulse or respirations of his own. His pupils were fixed and dilated. It was felt that further resuscitation efforts would be futile and he was pronounced at 0742. Allergies and Home Medications Allergies Coded Allergies: JANA Inhibitors (Verified Allergy, Unknown, 11/12/19) Penicillins (Verified Allergy, Unknown, Pt has rec Rocephin in the past w/o issue, 09/22/19) atorvastatin (Verified Allergy, Unknown, 11/12/19) niacin (Verified Allergy, Unknown, 12/06/18) Home Medications Acetaminophen 500 Mg Tablet, 1,000 MG PO HS PRN for PAIN-MILD, (Reported) Allopurinol 300 Mg Tablet, 300 MG PO DAILY, (Reported) Amlodipine Besylate 10 Mg Tablet, 10 MG PO DAILY Prescribed by: YUMIKO KIM on 10/08/19 1402 Aspirin 325 Mg Tablet.dr, 325 MG PO DAILY, (Reported) Carvedilol 12.5 Mg Tablet, 12.5 MG PO BID, (Reported) Cefdinir 300 Mg Capsule, 300 MG PO BID Prescribed by: YUMIKO KIM on 10/08/19 1402 Clopidogrel Bisulfate 75 Mg Tablet, 75 MG PO DAILY, (Reported) Fluticasone Propionate 9.9 Ml [place].susp, 1 SPRAY NSEACH DAILY PRN for CONGESTION, (Reported) Ibuprofen 200 Mg Tablet, 600-800 MG PO Q8H PRN for PAIN-MILD, (Reported) Montelukast Sodium 10 Mg Tablet, 10 MG PO HS, (Reported) Morphine Sulfate 30 Mg Tablet.er, 30 MG PO BID PRN for PAIN-SEVERE, (Reported) Morphine Sulfate 15 Mg Tablet.er, 15 MG PO BID, (Reported) Multivits-Minerals/FA/Lycopene 1 Each Tablet, 1 EACH PO DAILY, (Reported) Nebivolol HCl 5 Mg Tablet, 2.5 MG PO DAILY, (Reported) TAKES OF A 5MG PT IS STILL CURRENTLY TAKING- WHEN THIS IS FINISHED HE WILL START COREG Omeprazole 20 Mg Capsule.dr, 20 MG PO DAILY, (Reported) TAKES MED BEFORE HE EATS Oxycodone HCl/Acetaminophen 1 Each Tablet, 1 TAB PO TID PRN for PAIN-MODERATE, (Reported) Rosuvastatin Calcium 20 Mg Tablet, 20 MG PO HS, (Reported) Sertraline HCl 100 Mg Tablet, 150 MG PO HS, (Reported) TAKES 1 & (100MG) TABS Temazepam 30 Mg Capsule, 30 MG PO HS, (Reported) Patient Home Medication List Home Medication List Reviewed: Yes Review of Systems Review of Systems Constitutional: see HPI Other Comments Unable to obtain due to patient being intubated and undergoing CPR Past Qqqshnw-Tiamzn-Lqjptf Hx Past Med/Social Hx: Reviewed Nursing Past Med/Soc Hx Patient Social History Type Used: Smokeless Tobacco 2nd Hand Smoke Exposure: No Recent Hopitalizations: No Seasonal Allergies Seasonal Allergies: No Past Medical History Surgeries: Yes CABG, Coronary Stent Respiratory: Yes (Nocturnal Hypoxemia) Cardiac: Yes (Chronic ischemic heart disease) Coronary Artery Disease, Heart Attack, High Cholesterol, Hypertension Neurological: No Genitourinary: No Gastrointestinal: Yes Gastroesophageal Reflux, Hiatal Hernia Musculoskeletal: Yes (Carpal tunnel syndrome, Degenerative Arthritis) Arthritis Endocrine: Yes (Hypercalcemia) HEENT: No Cancer: No Psychosocial: No Integumentary: No Blood Disorders: No Adverse Reaction/Blood Tranf: No Physical Exam Vital Signs Vital Signs - First Documented 04/01/20 07:38 Pulse 0 Resp 0 Capillary Refill : Height, Weight, BMI Height: 5'4.00" Weight: 192lbs. 0.9oz. 87.340451yt; 30.00 BMI Method:Stated General Appearance: Chronically ill, Other (unresponsive, intubated ) HEENT: Other (pupils fixed and dilated. brown colored emesis in nose and oropharynx) Respiratory: Other (no spontaneous respirations. intubated by EMS with ETT in place receiving bag ventilations and has equal bilateral breath sounds that are coarse) Cardiovascular: Other (asystole with no spontaneous pulse or heartbeat detected by palpation, auscultation or telemetry) Gastrointestinal: No Pulsatile Mass, Soft Neurologic/Psychiatric: Other (unresponsive and receiving CPR) Skin: Pallor Progress/Results/Core Measures Results/Orders Vital Signs/I&O 04/01/20 07:38 Pulse 0 Resp 0 B/P (MAP) Progress Progress Note : Progress Note CPR was continued initially on arrival to ED as he had just gotten epinephrine and the ETT was confirmed with equal breath sounds. He still had no spontaneous pulse or respirations of his own. His pupils were fixed and dilated. It was felt that further resuscitation efforts would be futile and he was pronounced at 0742. His primary care provider, Dr. Darden, was notified at 0801. When I discussed the case with him he did tell me the family had called Sunday and said he was delirious with a fever and not acting right. Dr. Darden had instructed the family to take him to the ED or allow home health to come check on him but they had refused out of worry the pt would be admitted or sent to a intermediate. Dr. Darden did say he would sign the certificate on the patient. Departure Impression Primary Impression: Cardiac arrest Additional Impressions: Unsuccessful cardiopulmonary resuscitation Disposition: 20 (Pronounced at 0742) Condition: (0742) Departure-Patient Inst. Referrals: JATINDER DARDEN MD (PCP/Family) Primary Care Physician JOB SALEEM MD Apr 01, 2020 08:11
== END 2020-04-01 09:45 | disposition expired ==
LOC: EDUNIT# 07:46 → ER FS 07:47
DX: I46.9 Cardiac arrest, cause unspecified (principal); K21.9 Gastro-esophageal reflux disease without esophagitis; E78.00 Pure hypercholesterolemia, unspecified; I10 Essential (primary) hypertension; I25.10 Atherosclerotic heart disease of native coronary artery without angina pectoris; I25.2 Old myocardial infarction; Z95.1 Presence of aortocoronary bypass graft; Z95.5 Presence of coronary angioplasty implant and graft; Z88.0 Allergy status to penicillin; Z88.8 Allergy status to other drugs, medicaments and biological substances; Z79.82 Long term (current) use of aspirin
CPT/HCPCS: 31500; 36680